=== PATIENT | male | born 1965 | race Caucasian/White ===

== ENCOUNTER → 2017-11-14 08:25 | Outpatient (CLI) | payer OTHER, SELFPAY ==
[2017-01-21 10:21] VITALS: BMI 35.7
[2017-11-14 09:48] LABS: AST(SGOT) 17 U/L (15-37); Alanine Aminotransfer ALT/SGPT 33 U/L (16-61); Albumin, Serum 3.5 g/dL (3.2-5.0); Alkaline Phosphatase 53 U/L (45-117); Bilirubin, Direct 0.08 mg/dL (0.00-0.30); Cholesterol 153 mg/dL (200); Globulin 3.9 g/dL (2.2-4.2); High Density Lipoprotein 45 mg/dL; Protein, Total 7.4 g/dL (6.4-8.2); Triglycerides 141 mg/dL; Very Low Density Lipoprotein 28 mg/dL (5-40)
== END ==
PROVIDERS: Family Provider Family Medicine; PCP Family Medicine; Visit Provider Internal Medicine Cardiovascular Disease
DX: I10 Essential (primary) hypertension (principal); Z79.899 Other long term (current) drug therapy
CPT/HCPCS: 36415; 80061; 80076

== ENCOUNTER → 2018-04-17 08:46 | Outpatient (CLI) | payer OTHER, SELFPAY ==
[2017-01-21 10:21] VITALS: BMI 35.7
[2018-04-17 09:41] LABS: AST(SGOT) 14 U/L (15-37); Alanine Aminotransfer ALT/SGPT 23 U/L (16-61); Albumin, Serum 3.4 g/dL (3.2-5.0); Alkaline Phosphatase 49 U/L (45-117); Cholesterol 162 mg/dL (200); High Density Lipoprotein 58 mg/dL; Protein, Total 7.4 g/dL (6.4-8.2); Triglycerides 82 mg/dL; Very Low Density Lipoprotein 16 mg/dL (5-40)
== END ==
PROVIDERS: Family Provider Family Medicine; PCP Family Medicine; Visit Provider Internal Medicine Cardiovascular Disease
DX: E78.00 Pure hypercholesterolemia, unspecified (principal); Z79.899 Other long term (current) drug therapy
CPT/HCPCS: 36415; 80061; 80076

== ENCOUNTER → 2019-03-22 | Outpatient (CLI) | payer OTHER, SELFPAY ==
[2017-01-21 10:21] VITALS: BMI 35.7
[2019-03-01 16:07] VITALS: BMI 34.8
[2019-03-22 10:22] LABS: AST(SGOT) 13 U/L (15-37); Alanine Aminotransfer ALT/SGPT 25 U/L (16-61); Albumin, Serum 3.5 g/dL (3.2-5.0); Alkaline Phosphatase 47 U/L (45-117); Bilirubin, Direct 0.14 mg/dL (0.00-0.30); Cholesterol 144 mg/dL (200); High Density Lipoprotein 58 mg/dL; Protein, Total 7.5 g/dL (6.4-8.2); Triglycerides 67 mg/dL; Very Low Density Lipoprotein 13 mg/dL (5-40)
== END | disposition home or self-care (01) ==
LOC: LAB 08:56
PROVIDERS: Family Provider Family Medicine; PCP Family Medicine; Referring Provider Internal Medicine Cardiovascular Disease; Visit Provider Internal Medicine Cardiovascular Disease
DX: E78.00 Pure hypercholesterolemia, unspecified (principal); I25.119 Atherosclerotic heart disease of native coronary artery with unspecified angina pectoris
CPT/HCPCS: 36415; 80061; 80076

== ENCOUNTER → 2019-10-11 13:52 | Outpatient (CLI) | payer OTHER, SELFPAY ==
[2017-01-21 10:21] VITALS: BMI 35.7
[2019-09-27 15:36] VITALS: BMI 34.8
[2019-10-11 13:58] LABS: Lyme Ab Screen Interpretation REF LAB
--- NOTE | 2019-10-11 14:20 | RAD_ITS ---
STUDY: X-RAY CHEST REASON FOR EXAM: Male, 54 years old. possible Virchow Node, cough TECHNIQUE: PA and lateral views of the chest. COMPARISON: Prior study of November 10, 2016 FINDINGS: The lungs are clear and expanded. There is no demonstrated pleural abnormality. There is borderline cardiomegaly. Normal mediastinum and gillian. Normal visualized pulmonary arteries. Normal visualized aortic arch and descending thoracic aorta. There are diffuse degenerative changes of the visualized thoracic spine. Normal visualized ribs, clavicles, and shoulders. There is no demonstrated abnormality of the visualized soft tissue structures of the upper abdomen. RAD/Chest PA and Lateral IMPRESSION: Borderline heart size. Endplate spondylosis of the thoracic spine. No acute cardiopulmonary disease process is seen. Electronically Signed: Gregg Posada MD at 22:15 EST , Service support ,
[2019-10-11 15:42] LABS: Absolute Lymphocyte Count 1.37 X10^3/uL (0.83-4.51); Absolute Neutrophil Count 3.7 X10^3/uL (2.0-7.7); Basophil# 0.03 X10^3/uL; Basophil% 0.5 % (0-1); Eosinophil# 0.18 X10^3/uL; Eosinophils% 3.1 % (0-5); Hematocrit 39.3 % (40-54); Hemoglobin 12.8 g/dL (13.0-16.5); Lymphocyte # 1.37 X10^3/ul (4.0); Mean Corp Hgb Conc 32.6 g/dL (32-36); Mean Corpuscular Hgb 29.4 pg (27.0-32.0); Mean Corpuscular Volume 90.3 fL (80-94); Mean Platelet Vol. 10.8 fl (6.2-12.0); Monocyte# 0.39 X10^3/uL; Monocyte% 6.8 % (0-10); NRBC Flagged by Analyzer 0 % (0-5); Neutrophil # 3.74 X10^3/uL (2.7-7.7); Neutrophil % 65.4 % (47-70); Platelet Count 221 K/mm3 (150-450); RBC Distribution Width CV 13.3 % (11.6-14.6); Red Blood Count 4.35 M/mm3 (4.6-6.2); White Blood Count 5.7 K/mm3 (4.4-11.0)
[2019-10-11 16:30] LABS: ALB/GLOB Ratio 0.9 RATIO (0.9-2.4); AST(SGOT) 17 U/L (15-37); Alanine Aminotransfer ALT/SGPT 36 U/L (16-61); Albumin, Serum 3.5 g/dL (3.2-5.0); Alkaline Phosphatase 47 U/L (45-117); Anion Gap 5 (5-15); BUN 23 mg/dL (7-18); BUN/Creat Ratio 22.8 RATIO (10-20); Bilirubin, Direct 0.15 mg/dL (0.00-0.30); CRP < 2.90 mg/L (0.0-3.0); Calcium,Total 8.5 mg/dL (8.5-10.1); Chloride 107 mmol/L (98-107); Cholesterol 195 mg/dL (200); Creatinine, Serum 1.01 mg/dL (0.70-1.30); EST Glomerular Filtration Rate 82 mL/min (>60); Est Glom Filt Rate - Afr Amer 99 mL/min (>60); Glucose 95 mg/dL (74-106); High Density Lipoprotein 63 mg/dL; Potassium 3.8 mmol/L (3.5-5.1); Protein, Total 7.5 g/dL (6.4-8.2); Sodium Level 139 mmol/L (136-145); Triglycerides 142 mg/dL; Very Low Density Lipoprotein 28 mg/dL (5-40)
[2019-10-13 23:22] LABS: Carbohydrate AG 19-9 1 U/mL (0-35); Lyme Scn Total Ab w/Rflx <0.91 ISR (0.00-0.90)
== END ==
PROVIDERS: Family Provider Family Medicine; PCP Family Medicine; Referring Provider Family Medicine; Visit Provider Family Medicine
DX: D48.7 Neoplasm of uncertain behavior of other specified sites (principal); R59.9 Enlarged lymph nodes, unspecified; R05 Cough; I25.119 Atherosclerotic heart disease of native coronary artery with unspecified angina pectoris; E78.00 Pure hypercholesterolemia, unspecified
CPT/HCPCS: 36415; 71046; 80053; 80061; 82248; 85025; 86140; 86301; 86618

== ENCOUNTER → 2019-10-19 13:20 | Outpatient (CLI) | payer OTHER, SELFPAY ==
[2017-01-21 10:21] VITALS: BMI 35.7
[2019-09-27 15:36] VITALS: BMI 34.8
--- NOTE | 2019-10-19 13:27 | US_ITS ---
STUDY: SOFT TISSUE NECK REASON FOR EXAM: Male, 54 years old. RIGHT SUBCLAVICULAR ADENOPATHY TECHNIQUE: Ultrasound evaluation of the soft tissues of the neck. COMPARISON: None. FINDINGS: There is a hypoechoic mass in the supraclavicular region near the midline, measures 2 x 1 x 1.7 cm, may represent a synovial mass originating from the sternoclavicular joint. Further evaluation by CT scan or MRI is recommended. US/Ext Non Vasc Limited/Soft Tiss IMPRESSION: There is a hypoechoic mass in the supraclavicular region near the midline, measures 2 x 1 x 1.7 cm, may represent a synovial mass originating from the sternoclavicular joint. Further evaluation by CT scan or MRI is recommended. Electronically Signed: Carlo Welch, at 8:08 EST Tel , Service support ,
--- NOTE | 2019-10-19 14:17 | ECHOCS_ITS ---
Reason For Study: CHEST PAIN Procedure This was a 2D Doppler, Color Flow transthoracic echocardiogram. The study was technically difficult. Contrast injection was performed. Exam performed in department. Left Ventricle Normal size and thickness. The estimated ejection fraction is 65 %. Normal diastology for age. No regional wall motion abnormalities noted. Right Ventricle Mildly dilated right ventricle. Normal systolic function. Atria Normal left atrium. Normal right atrium. Normal atrial septum. Mitral Valve The mitral valve is structurally normal. No prolapse or stenosis seen. Trivial eccentric mitral valve insufficiency. Tricuspid Valve Normal tricuspid valve. Trivial tricuspid valve insufficiency. Right ventricular systolic pressure estimated to be 24 mmHg. Aortic Valve Trisinus/trileaflet aortic valve. Mild diffuse aortic valve thickening. There is no aortic stenosis. Pulmonic Valve Normal pulmonic valve. Trivial pulmonic valve insufficiency. Great Vessels Normal aortic root. Normal arch. Normal inferior vena cava. Inferior vena cava collapse with sniff. Pericardium/Pleural No pericardial effusion. Medication 22 gauge I.V. with prn adaptor inserted into right arm. Diluted definity 3.0ml given slow IV push to enhance endocardial definition. MMode/2D Measurements & Calculations LVIDd: 5.4 cm IVSd: 0.96 cm Ao root diam: 4.5 cm LVIDs: 3.4 cm LVPWd: 1.0 cm RVDd: 4.8 cm FS: 37.0 % LAV(MOD-bp): 63.0 ml EDV(MOD-sp4): 164.0 ml EDV(MOD-sp2): 151.8 ml LAV(MOD-bp) Indexed: 28.2 ml/m2 ESV(MOD-sp4): 79.8 ml EF(MOD-sp2): 65.6 % LAV(MOD-sp2): 57.4 ml EF(MOD-sp4): 51.3 % LAV(MOD-sp4): 59.3 ml SV(MOD-sp4): 84.2 ml SV(MOD-sp2): 99.6 ml LA A4 area: 20.7 cm2 LA dimension(2D): 4.5 cm RA A4 area: 12.7 cm2 Time Measurements MV dec time: 0.21 sec Doppler Measurements & Calculations MV E max александр: 93.7 cm/sec Lat Peak E' Александр: 9.6 cm/sec Med Peak E' Александр: 6.4 cm/sec MV A max александр: 82.7 cm/sec E/E' lat: 9.8 E/E' med: 14.7 MV E/A: 1.1 Ao V2 max: 178.4 cm/sec LV V1 max: 118.6 cm/sec PA V2 max: 127.9 cm/sec Ao max P.7 mmHg LV V1 max P.6 mmHg TR max александр: 216.2 cm/sec TR max P.8 mmHg Interpretation Summary The estimated ejection fraction is 65 %. Normal diastology for age. Mildly dilated right ventricle. Trivial eccentric mitral valve insufficiency. Trivial tricuspid valve insufficiency. Right ventricular systolic pressure estimated to be 24 mmHg. Mild diffuse aortic valve thickening. There is no aortic stenosis. Compared to echo report dated 11/10/16, no appreciable changes noted. The study was technically difficult. Contrast injection was performed. Ordering Physician: Justo Duque Referring Physician: Herbert Christie Performed By: Aurea Rodriguez, RDCS, RVT
== END ==
PROVIDERS: Family Provider Family Medicine; PCP Family Medicine; Referring Provider Family Medicine; Visit Provider Family Medicine
DX: R07.9 Chest pain, unspecified (principal); I25.119 Atherosclerotic heart disease of native coronary artery with unspecified angina pectoris; I10 Essential (primary) hypertension; I25.2 Old myocardial infarction; Z95.5 Presence of coronary angioplasty implant and graft; R59.0 Localized enlarged lymph nodes
CPT/HCPCS: 76882; 93306; Q9957; A4216; C8929

== ENCOUNTER → 2019-10-26 09:25 | Outpatient (CLI) | payer OTHER, SELFPAY ==
[2017-01-21 10:21] VITALS: BMI 35.7
[2019-09-27 15:36] VITALS: BMI 34.8
--- NOTE | 2019-10-26 09:28 | STEWCON_ITS ---
Reason For Study: CAD, Chest Pain Stress Results Protocol: Quinton Protocol WITH DEFINITY Maximum Predicted HR: 166 bpm Target HR: 141 bpm % Maximum Predicted HR: 86 % DurationHeart Rate Stage (mm:ss) (bpm) BP Comment Baseline 47 138/86No Chest Pain; 3 ML Diluted Definity Given Quinton Protocol Stage I 3:00 77 140/80No Chest Pain Quinton Protocol Stage II 3:00 95 168/84No Chest Pain Quinton Protocol Stage III 3:00 122 174/80No Chest Pain; Mild Dyspnea Quinton Protocol Stage IV 0:45 142 / No Chest Pain; Mild Dyspnea; Daniel Leg Discomfort Recovery 60 130/80No Chest Pain; No Dyspnea Stress Duration: 9:45 mm:ss Maximum Stress HR: 142 bpm METS: 12 Baseline Echocardiogram Findings The estimated ejection fraction is 65 %. Stress Echo Wall motion Data Resting WM Intermediate WM Stress WM Resting Wall Motion Wall Motion Stress No regional wall motion No regional wall motion abnormalities noted. abnormalities noted. EKG Data The baseline ECG displays normal sinus rhythm. The patient exercised according to the regular Quinton protocol for a total duration of 9:45. The maximum heart rate attained was 142 beats per minute. This was 85% of maximum predicted heart rate. The patient exercised into stage 4 of the Quinton protocol. During stress, there were no ST or T wave changes noted to suggest ischemia. No clinical angina was noted. Interpretation Summary The estimated ejection fraction is 65 %. Normal, adequate, treadmill echocardiogram. Negative for ischemia by EKG and echocardiographic criteria. No anginal symptoms noted. Rare PVC noted. Appropriate blood pressure response to exercise. Average exercise capacity for age. Test terminated due to leg discomfort. Final LVEF is 75%. Patient tolerated procedure well. No complications. Decrease sensitivity due to poor echo windows requiring Definity agent. The study was technically difficult. Contrast injection was performed. Ordering Physician: Justo Duque Referring Physician: Herbert Christie Performed By: Teofilo Saunders RCS
== END ==
PROVIDERS: Family Provider Family Medicine; PCP Family Medicine; Referring Provider Internal Medicine Cardiovascular Disease; Visit Provider Internal Medicine Cardiovascular Disease
DX: R07.9 Chest pain, unspecified (principal); I25.119 Atherosclerotic heart disease of native coronary artery with unspecified angina pectoris; I25.2 Old myocardial infarction; I10 Essential (primary) hypertension
CPT/HCPCS: 93017; 93350; Q9957; A4216; C8928

== ENCOUNTER → 2020-11-28 10:41 | Outpatient (CLI) | payer OTHER, SELFPAY ==
[2017-01-21 10:21] VITALS: BMI 35.7
[2020-11-28 10:02] VITALS: BMI 36.7
[2020-11-28 11:31] LABS: Absolute Lymphocyte Count 1.44 X10^3/uL (0.83-4.51); Absolute Neutrophil Count 2.7 X10^3/uL (2.0-7.7); Basophil# 0.04 X10^3/uL; Basophil% 0.8 % (0-1); Eosinophil# 0.13 X10^3/uL; Eosinophils% 2.7 % (0-5); Hematocrit 43.1 % (40-54); Hemoglobin 14.1 g/dL (13.0-16.5); Lymphocyte # 1.44 X10^3/ul (4.0); Lymphocyte % 30.3 % (19-41); Mean Corp Hgb Conc 32.7 g/dL (32-36); Mean Corpuscular Volume 91.7 fL (80-94); Mean Platelet Vol. 10.4 fl (6.2-12.0); Monocyte# 0.46 X10^3/uL; Monocyte% 9.7 % (0-10); NRBC Flagged by Analyzer 0 % (0-5); Neutrophil # 2.67 X10^3/uL (2.7-7.7); Neutrophil % 56.3 % (47-70); Platelet Count 263 K/mm3 (150-450); RBC Distribution Width CV 12.7 % (11.6-14.6); RBC Distribution Width SD 41.6 fl (35.1-43.9); White Blood Count 4.8 K/mm3 (4.4-11.0)
[2020-11-28 12:07] LABS: ALB/GLOB Ratio 0.9 RATIO (0.9-2.4); AST(SGOT) 16 U/L (15-37); Alanine Aminotransfer ALT/SGPT 31 U/L (16-61); Albumin, Serum 3.7 g/dL (3.2-5.0); Alkaline Phosphatase 53 U/L (45-117); Anion Gap 4 (5-15); BUN 17 mg/dL (7-18); BUN/Creat Ratio 18.7 RATIO (10-20); Chloride 106 mmol/L (98-107); Cholesterol 212 mg/dL (200); Creatinine, Serum 0.91 mg/dL (0.70-1.30); EST Glomerular Filtration Rate 92 mL/min (>60); Est Glom Filt Rate - Afr Amer 111 mL/min (>60); Globulin 4.1 g/dL (2.2-4.2); Glucose 92 mg/dL (74-106); High Density Lipoprotein 68 mg/dL; Protein, Total 7.8 g/dL (6.4-8.2); Sodium Level 138 mmol/L (136-145); Triglycerides 76 mg/dL; Very Low Density Lipoprotein 15 mg/dL (5-40)
== END ==
PROVIDERS: PCP Family Medicine; Referring Provider Physician Assistant Medical; Visit Provider Physician Assistant Medical
DX: E78.00 Pure hypercholesterolemia, unspecified (principal); I10 Essential (primary) hypertension; I25.119 Atherosclerotic heart disease of native coronary artery with unspecified angina pectoris
CPT/HCPCS: 36415; 80053; 80061; 84443; 85025

== ENCOUNTER → 2020-12-10 06:27 | Outpatient (CLI) | payer OTHER, SELFPAY ==
[2017-01-21 10:21] VITALS: BMI 35.7
[2020-11-28 10:02] VITALS: BMI 36.7
--- NOTE | 2020-12-10 08:54 | STRESSREP ---
Stress Test Report Date: 12-10-2020 Procedure: Exercise tolerance test/imaging study Indications: Chest pain; CAD; PCI Consent: Per the patient Procedure: The patient exercised on a Quinton protocol for 8 minutes and 15 seconds completing Stage II and 2 minutes and 15 seconds of Stage III achieving a peak heart rate of 146 bpm (88% predicted maximal heart rate) with a peak blood pressure 230/84 mmHg and a peak MET capacity of 9 METs. The baseline ECG demonstrated sinus bradycardia. The peak exercise ECG demonstrated no obvious ECG changes. There were no cardiac dysrhythmias pretest, during exercise, or recovery. The blood pressure was noted to be resting hypertension with an exaggerated blood pressure response. The functional capacity was considered good. There was chest discomfort pretest, during exercise, and recovery without significant change. The examination was discontinued secondary to dyspnea. Impression: 1. Technically adequate (percent predicted maximal heart rate greater than 85%) exercise tolerance test 2. Peak exercise ECG with no obvious ECG changes 3. There were no cardiac dysrhythmias pretest, during exercise, or recovery 4. Nuclear images pending Myocardial perfusion imaging study: Technique: The patient was injected with 14.6 mCi of technetium 99m Cardiolite and subsequently rest SPECT Cardiolite nuclear imaging was obtained in the horizontal long, vertical long, and short axis views. The patient exercised on a Quinton protocol for 8 minutes and 15 seconds completing Stage II and 2 minutes and 15 seconds of Stage III achieving a peak heart rate of 146 bpm (88% predicted maximal heart rate) with a peak blood pressure 230/84 mmHg and a peak MET capacity of 9 METs. The patient was injected with 43.8 mCi of technetium 99m Cardiolite and subsequently stress SPECT Cardiolite nuclear imaging was obtained in the horizontal long, vertical long, and short axis views. A gated Cardiolite study at peak stress was obtained. Interpretation: Rest and stress SPECT Cardiolite nuclear imaging status post realignment, normalization, and attenuation correction, demonstrates of a small area of subtle diminished tracer uptake near the basal lateral segments which is present at rest and stress, however, status post stress appears to be somewhat more prominent and extending toward the mid lateral segment. There is end systolic thickening and brightening. The gated Cardiolite study demonstrates myocardial thickening and inward wall motion. The reported LVEF is 61%. Impression: 1. Rest and stress SPECT Cardiolite nuclear imaging demonstrate myocardial perfusion changes concerning for an area of stress-induced myocardial ischemia in portions of the basal to mid lateral segments. 2. The gated Cardiolite study reports an LVEF of 61%. This note was generated with [employer] software. It may contain incorrect words, spelling, and punctuation that were not noted in checking the note before signing.
== END ==
PROVIDERS: PCP Family Medicine; Referring Provider Physician Assistant Medical; Visit Provider Physician Assistant Medical
DX: I10 Essential (primary) hypertension (principal); E78.00 Pure hypercholesterolemia, unspecified; I25.119 Atherosclerotic heart disease of native coronary artery with unspecified angina pectoris
CPT/HCPCS: 78452; 93017; A9500; A4216

== ENCOUNTER 2020-12-12 07:00 | Day surgery (SDC) | payer OTHER, SELFPAY ==
[2017-01-21 10:21] VITALS: BMI 35.7
[2020-11-28 10:02] VITALS: BMI 36.7
[2020-12-11 09:58] VITALS: BMI 36.7
--- NOTE | 2020-12-11 11:05 | RAD_ITS ---
STUDY: X-RAY CHEST REASON FOR EXAM: Male, 55 years old. Chest pain TECHNIQUE: PA and lateral views of the chest. COMPARISON: Comparison is made with prior study dated 10/11/2019. FINDINGS: Scattered calcified granulomas. No focal abnormalities. There is no demonstrated pleural abnormality. Normal size heart. Normal mediastinum and gillian. Normal visualized pulmonary arteries. Normal visualized aortic arch and descending thoracic aorta. There are diffuse degenerative changes of the visualized thoracic spine. Normal visualized ribs, clavicles, and shoulders. There is no demonstrated abnormality of the visualized soft tissue structures of the upper abdomen. RAD/Chest PA and Lateral IMPRESSION: No acute abnormality is seen. Electronically Signed: Yahir Benitez MD at 11:20 EST , Service support ,
[2020-12-11 11:55] LABS: Partial Thromboplast Time 26.1 Seconds (24.1-36.2); Prothrombin Time (Protime)PT. 13.1 SECONDS (11.7-14.9)
--- NOTE | 2020-12-11 19:19 | HP.PCM_ITS ---
Problem List (1) Abnormal stress test Status: Acute (2) Atherosclerotic heart disease [place] coronary artery w/angina pectoris Status: Chronic Qualifiers: Comment: 100% occluded pre-existing stent in the proximal to mid first obtuse marginal artery. 0% in-stent restenosis in the proximal to mid right coronary artery. 50 to 60% stenosis in the proximal posterior descending artery. (3) S/P coronary artery stent placement Status: Chronic Comment: PCI-MANUEL-RCA w/ Synergy 3.0 x 32 mm MANUEL, OM1 w/ 100% ISR 01/21/17 PCI-MANUEL-OM1 11/11/2016 (4) Hypercholesterolemia Status: Chronic (5) Hypertension Status: Chronic Qualifiers: History and Physical Date of Admission: 12/12/[address] [place] [address] OFFICE VISIT Date of Service: 11/28/20 MR#: [id number] Acct: [id number] Name: KYM EVANS Rep #: [id number] : 1965 Provider: MILTON Fraga Age/Sex: 55/M Location: [facility] Status: Signed HPI HPI History of Present Illness Details: This is a 55-year-old gentleman that presents here today for a cardiovascular follow-up. He is overdue for a follow-up he was last seen in 2019. He does have a history of coronary artery disease with non-STEMI in 2018 where he underwent stenting to his obtuse marginal. He does have a history of hypertension and hyperlipidemia. From a cardiac standpoint, patient is doing well. He does occasionally have chest pain. It occurs t/o the day, it is not brought on by anything in particular. This is not new. He has used his NTG a few times, it has not made a different. His exercise tolerance is stable for his age. He does not have any worsening symptoms of shortness of breath. He denies any PND. He does not have any orthopnea. He does not have any symptoms of congestive heart failure. He does not have any palpitations that he is aware of. He does not have any lightheadedness or dizziness. He does not have any near-syncope or syncope. He does not have any lower extremity edema. He does not have any symptoms of claudication. Intake Vital Signs 11/28/20 BP 138/80 H 11/28/20 Height 5 ft 10 in 11/28/20 Weight: 256 lb 11/28/20 BMI 36.7 11/28/20 BP 153/87 H 11/28/20 Blood Pressure Location Lt brachial 11/28/20 Position Sitting 11/28/20 Respiration 18 11/28/20 Pulse 47 L 11/28/20 Pulse Source Monitor 11/28/20 Pulse Oximetry (%) 95 Intake Visit Reasons: F/U, MISSED LAST DJN APPT Law Office Receptionist Required: No Accompanied by: None Is patient in pain?: No Allergies atorvastatin Adverse Reaction (Verified 11/28/20 09:57) Pt can't recall Medications Vitamin E 400 units PO DAILY 11/10/16 [History Confirmed 11/28/20] Aspirin E.C. [Ecotrin] 81 mg PO DAILY@0800 #30 tab 11/12/16 [Rx Confirmed 11/28/20] nitroglycerin 0.4 mg sublingual tablet 0.4 mg SUBLINGUAL Q5M PRN #25 tab MDD 3 tabs 09/27/19 [Rx Confirmed 11/28/20] losartan 25 mg tablet 12.5 mg PO BID #90 tab 07/11/20 [Rx Confirmed 11/28/20] simvastatin 20 mg tablet 20 mg PO QHS #90 tab 09/23/20 [Rx Confirmed 11/28/20] PFSH Medical History Chest pain (Acute) Atherosclerotic heart disease [place] coronary artery w/angina pectoris (Chronic) Obesity (Chronic) Non-STEMI (non-ST elevated myocardial infarction) (Chronic) Hypertension (Chronic) Hypercholesterolemia (Chronic) Surgical History History of left heart catheterization (Chronic ~02/23/17) S/P coronary artery stent placement (Chronic ~01/21/17) History of right knee surgery (Chronic) Family History Mother CVA (cerebral vascular accident) Father CAD (coronary artery disease) Social History (Updated 11/28/20 @ 10:46 by Deborah ROSE, PA) alcohol intake: current Alcohol type: beer, hard liquor substance use type: does not use what type of physical activity do you participate in: walking frequency: 1-2 times per week ROS Const Const: Negative for fatigue, weakness, fever(s) or headache(s) Eyes Eyes: Negative for blind spots, loss of peripheral vision or transient loss of vision ENT ENT: Negative for headache(s), dizziness, tinnitus or Nosebleed/epistaxis Cardio Chest Pain: Yes Palpitations: No Edema: None Muscle aches with walking: None Resp Respiratory: Negative for SOB with activity, SOB at rest, SOB orthopnea\SOB lying down or Cough GI GI: Negative nausea, vomiting, heartburn or vomiting blood/hematemesis : Negative for hematuria Musc Musc: Negative for muscle aches/ myalgia Neuro Neuro: Negative for dizziness, lightheadedness, near syncope, syncope, orthostatic symptoms, headache(s) or weakness [place] Hematologic/Lymphatic: Negative for easy bleeding Endo Endo: Negative for fatigue Cardiology Exam Const Appearance: cooperative, no acute distress and well developed Orientation: alert, awake and oriented x3 Head Head: normocephalic and atraumatic Mouth: moist mucous membranes Eyes General: appearance normal, both eyes and all related structures Conjunctivae: conjunctivae normal Pupils: PERRL EOM: EOM intact bilaterally Neck Neck: normal visual inspection, no lymphadenopathy and no JVD Carotids: Negative bruit Neck Mass: Negative Neck mass Chest Chest inspection: normal inspection of the chest and symmetric chest movement Auscultation: Bilateral: Clear to Auscultation Cardio Palpation: normal PMI Rate: regular rate Rhythm: regular rhythm Heart sounds: S1 normal and S2 normal; negative rub, gallop or murmur GI GI: normal to inspection, soft, no hepatosplenomegaly and bowel sounds present; negative tender Neuro General: alert, awake, oriented x3, CN's II-XI intact bilaterally and moves all extremities Extremities Pulses: Normal: Right Posterior Tibial Pulse, Left Posterior Tibial Pulse, Right Radial Pulse, Left Radial Pulse Lower Extremity Edema: None: Bilateral Psych Psychological: normal affect Assessment & Plan 1. Atherosclerosis of [place] coronary artery of [place] heart with angina pectoris I25.119 100% occluded pre-existing stent in the proximal to mid first obtuse marginal artery. 0% in-stent restenosis in the proximal to mid right coronary artery. 50 to 60% stenosis in the proximal posterior descending artery. Plan Patient does have some vague chest discomfort. He did not have any symptoms prior to his myocardial infarction. With his history of coronary artery disease would like to obtain a stress test to evaluate for underlying ischemia. He was not tolerant to his beta-cathy in the past. He will continue with his low- dose losartan, aspirin and simvastatin. Orders Orders: Comprehensive Metabolic Profil Today Lipid Profile Today Thyroid Stim Hormone (TSH) Today CBC W/Diff, Automated Today Nuclear Stress Test - Treadmil Today 2. Essential hypertension I10 Plan Blood pressure initially elevated upon recheck better. Patient does admit to not being compliant with his medications. Orders Orders: Comprehensive Metabolic Profil Today Lipid Profile Today Thyroid Stim Hormone (TSH) Today CBC W/Diff, Automated Today Nuclear Stress Test - Treadmil Today 3. Hypercholesterolemia E78.00 Plan Would like to recheck his lipids. Now he will continue with his low-dose simv astatin. Of note if they are elevated suspect it may be due to noncompliance would then not make any changes and reevaluate in the future. Orders Orders: Comprehensive Metabolic Profil Today Lipid Profile Today Thyroid Stim Hormone (TSH) Today CBC W/Diff, Automated Today Nuclear Stress Test - Treadmil Today 4. Fatigue R53.83 Plan With patient's fatigue would like to obtain a stress test and labs. Plan Detail Follow Up 6 Months (MMM) 1 Year (establish with PFM- previous DJN) Coding Level of Care Code Off vis,est,level 4 Diagnoses Atherosclerosis of [place] coronary artery of [place] heart with angina pectoris I25.119 ??[place] vs. transplanted heart: [place] heart Essential hypertension I10 ??Hypertension type: essential hypertension Hypercholesterolemia E78.00 Fatigue R53.83 Coding Level of Care Code Off vis,est,level 4 Diagnoses Atherosclerosis of [place] coronary artery of [place] heart with angina pectoris I25.119 ??[place] vs. transplanted heart: [place] heart Essential hypertension I10 ??Hypertension type: essential hypertension Hypercholesterolemia E78.00 Fatigue R53.83 Supplemental Info Supplemental Information Stress test 10/2019: The estimated ejection fraction is 65 %. Normal diastology for age. Mildly dilated right ventricle. Trivial eccentric mitral valve insufficiency. Trivial tricuspid valve insufficiency. Right ventricular systolic pressure estimated to be 24 mmHg. Mild diffuse aortic valve thickening. There is no aortic stenosis. Compared to echo report dated 11/10/16, no appreciable changes noted. The study was technically difficult. Contrast injection was performed. Stress echocardiogram 2020: The estimated ejection fraction is 65 %. Normal, adequate, treadmill echocardiogram. Negative for ischemia by EKG and echocardiographic criteria. No anginal symptoms noted. Rare PVC noted. Appropriate blood pressure response to exercise. Average exercise capacity for age. Test terminated due to leg discomfort. Final LVEF is 75%. Patient tolerated procedure well. No complications. Decrease sensitivity due to poor echo windows requiring Definity agent. The study was technically difficult. Contrast injection was performed. Labs LDL Cholesterol 104 mg/dL (0-130) 10/11/19 HDL Cholesterol 63 mg/dL (40-) 10/11/19 Triglycerides 142 mg/dL (-199) 10/11/19 VLDL Cholesterol 28 mg/dL (5-40) 10/11/19 Diagnostics Electrocardiogram 09/27/19 Echocardiogram 10/19/19 Stress Echocardiogram 10/26/19 Chest X-Ray 10/11/19 11/28/20 1046 <Electronically signed by Deborah Benitez> Date _ Deborah ROSE The patient underwent further evaluation with an exercise tolerance test/imaging study. The results are as noted below. Stress Test Report Date: 12-10-2020 Procedure: Exercise tolerance test/imaging study Indications: Chest pain; CAD; PCI Consent: Per the patient Procedure: The patient exercised on a Quinton protocol for 8 minutes and 15 seconds completing Stage II and 2 minutes and 15 seconds of Stage III achieving a peak heart rate of 146 bpm (88% predicted maximal heart rate) with a peak blood pressure 230/84 mmHg and a peak MET capacity of 9 METs. The baseline ECG demonstrated sinus bradycardia. The peak exercise ECG demonstrated no obvious ECG changes. There were no cardiac dysrhythmias pretest, during exercise, or recovery. The blood pressure was noted to be resting hypertension with an exaggerated blood pressure response. The functional capacity was considered good. There was chest discomfort pretest, during exercise, and recovery without significant change. The examination was discontinued secondary to dyspnea. Impression: 1. Technically adequate (percent predicted maximal heart rate greater than 85%) exercise tolerance test 2. Peak exercise ECG with no obvious ECG changes 3. There were no cardiac dysrhythmias pretest, during exercise, or recovery 4. Nuclear images pending Myocardial perfusion imaging study: Technique: The patient was injected with 14.6 mCi of technetium 99m Cardiolite and subsequently rest SPECT Cardiolite nuclear imaging was obtained in the horizontal long, vertical long, and short axis views. The patient exercised on a Quinton protocol for 8 minutes and 15 seconds completing Stage II and 2 minutes and 15 seconds of Stage III achieving a peak heart rate of 146 bpm (88% predicted maximal heart rate) with a peak blood pressure 230/84 mmHg and a peak MET capacity of 9 METs. The patient was injected with 43.8 mCi of technetium 99m Cardiolite and subsequently stress SPECT Cardiolite nuclear imaging was obtained in the horizontal long, vertical long, and short axis views. A gated Cardiolite study at peak stress was obtained. Interpretation: Rest and stress SPECT Cardiolite nuclear imaging status post realignment, normalization, and attenuation correction, demonstrates of a small area of subtle diminished tracer uptake near the basal lateral segments which is present at rest and stress, however, status post stress appears to be somewhat more prominent and extending toward the mid lateral segment. There is end systolic thickening and brightening. The gated Cardiolite study demonstrates myocardial thickening and inward wall motion. The reported LVEF is 61%. Impression: 1. Rest and stress SPECT Cardiolite nuclear imaging demonstrate myocardial perfusion changes concerning for an area of stress-induced myocardial ischemia in portions of the basal to mid lateral segments. 2. The gated Cardiolite study reports an LVEF of 61%. The above was discussed and reviewed with the patient. The recommendation was made for further evaluation with diagnostic cardiac catheterization. The procedure and risk were discussed with the patient. He was in agreement. I have re-examined the patient. There are no clinical changes since date of exam. Procedure Criteria Procedure Type: Elective COVID Risk Discussion: The surgeon/proceduralist and patient have discussed in detail the risk of exposure to and/or potential harm posed by the COVID-19 virus with having a surgery/procedure at this time versus the risk of delaying the surgery/procedure. It is not possible to know either the risk of delaying the surgery or procedure or chance of getting an infection with perfect accuracy, but a joint decision was made between the patient and the surgeon/proceduralist to proceed at this time with the scheduled surgery/procedure as indicated on the consent form.
[2020-12-12] VITALS (14 sets, daily range): BP systolic 115–150; BP diastolic 69–88; PULSE 43–55; RESP 18; TEMP 36.6–37.2; O2SAT 95–98
--- NOTE | 2020-12-12 09:27 | CL.D_ITS ---
Patient Name: KYM EVANS Study Date: 12/12/2020 Performing: Philippe Jean MD Ht: 70.07 inches 178 cm : 1965 Wt: 255.74 lbs 116 kg Age: 55 Gender: male BSA: 2.32 PROCEDURE(S) PERFORMED [id number]/COR/LV CLINICAL PROFILE AND INDICATIONS Indications: Worsening Angina, Suspected CAD Heart Failure: None Stress/Imaging Date: 12/10/2020tress Test with SPECT MPI: Positive Intermediate Risk Angina Classification Anginal Classification w/in 2 Weeks: CCS III CAD Presentations: Stable angina. CONCLUSIONS Elevated Left Ventricular End Diastolic Pressure Normal LV size, wall motion,and systolic function LVEF: by LV gram 60 % [place] Multivessel CAD Left to Left collateral flow RECOMMENDATIONS Risk factor modification Medical therapy Referred for immediate PCI Case discussed / reviewed with Dr. Zev Nick of Interventional Cardiology DESCRIPTION OF PROCEDURE The patient arrived to the procedure lab. The risks and benefits of the procedure as well as a full d escription of our services here and current unavailability of surgical backup were fully explained to the patient and/or their significant other prior to the catheterization. The Timeout was completed, verifying the correct patient and procedure. The patient's procedural site was prepped and draped in the usual fashion. Local anesthetic was given subcutaneously to right radial region with Lidocaine 2% . Using a modified Seldinger technique, arterial access was obtained via the right radial artery, a 6 Fr sheath was inserted. Right Coronary Artery selective angiography was then performed in multiple v iews using a 5 Fr. 4.0 [place] catheter. Left Coronary Artery selective angiography was performed in mu ltiple views using a 5 Fr. 4.0 [place] catheter. Left Ventriculography was performed in GRAVES projection using a 5 Fr. Pigtail catheter. LV to AO pullback pressures were then recorded. CORONARY ANGIOGRAPHY DOMINANCE: Right Dominant LEFT HEART ASSESSMENT Left Ventricular Ejection Fraction: by LV Gram 60 % Normal LV wall motion Elevated Left Ventricular End Diastolic Pressure LVEDP: 16 mmHg LEFT MAIN: Mild calcification, Mild luminal irregularities LEFT ANTERIOR DESCENDING ARTERY: Mild luminal irregularities PROX LAD: Mild calcification DISTAL LAD: / apical: 75 % Stenosis CIRCUMFLEX ARTERY: Mild luminal irregularities OSTIAL CIRC: 25 % Stenosis OM 2: Proximal - Previously placed stent is occluded RIGHT CORONARY ARTERY: Mild luminal irregularities MID RCA: Previously placed stent is patent DISTAL RCA: s/p stent: eccentric: 50 - 75 % Stenosis, hazy: 85 % Stenosis RT PDA: Proximal - long: smooth: 75 % Stenosis COLLATERAL FLOW: Collateral flow from Left to Left (LAD to OM2) AORTIC ROOT: Angiographically normal COMPLICATIONS No Complications PROCEDURE MEDICATIONS Versed 1 mg IV Fentanyl 50 mcg IV Versed 1 mg IV Fentanyl 50 mcg IV Oxygen: 20 L/min via nasal cannula Heparin given IA 12/12/2020 08:40:24 Plavix 300 mg PO 12/12/2020 09:11:37 SUMMARY OF HEMODYNAMIC DATA Time AIR REST ECG 07:20:31 AO 143/94 (114) SA 08:24:12 LV 167/13, 22 08:49:02 LV 160/9, 16 08:49:09 LV 173/4, 30 08:50:07 LV 177/5, 28 08:50:14 LVp 182/2, 28 08:50:26 AOp 174/91 (121) 08:50:31 Signed By Philippe Jean MD On 12/12/2020 09:27:01 Philippe eJan MD
--- NOTE | 2020-12-12 10:35 | CL.PCI_ITS ---
PCI Cardiac Cath Report PCI Report: Procedure performed 1. Successful PCI of the distal RCA with placement of 3 x 38 mm drug-eluting stent/synergy Postdilated with 3 x 20 mm NC balloon and achievement of excellent result. The distal RCA is stenosis is around 70% diffuse post PCI reduced to 0% ANGIE #3 flow pre and post PCI. 2. Successful PTCA of ostial/proximal RPDA using 2 x 18 on reduction of stenosis from 90% diffuse disease to 30% ANGIE #3 flow pre and post PTCA Consent; Risk and benefit of the procedure explained in detail to the patient informed consent obtained and placed in the chart. Preprocedure diagnosis in detail; This is a 55-year-old patient who presented for follow-up had a history of CAD in 2018 for non-ST elevation myocardial infarction and underwent stenting to obtuse marginal branch known to have history of hypertension hyperlipidemia also had a history of PCI and stent of the mid RCA. He had catheterization today by his primary hypoid gear tester Dr. Jean I reviewed the angiographic from the LV function preserved, he had occluded OM stent which is a small vessel with left to left collateral The RCA is a large patency of the mid RCA stent is noted with diffuse atherosclerosis in the distal RCA prior to the bifurcation Of at least 70%, also noted high-grade 90% stenosis of diffuse ostial and proximal RPDA. Based on his clinical presentation and having symptoms of chest pain with clear evidence of diffuse atherosclerosis of the RCA which is a large vessel we discussed the case with the plan of treating the OM branch which is a small vessel with medical therapy it had collaterals from the left side of the LAD to the OM branch And we decided to proceed with a PCI of the RCA and PTCA of the sidebranch which is ostial and proximal RPDA. Interventional equipment and plan; 1. 6 [place] JR4 catheter 2. 0.014 extra floppy run-through wire 180 cm 3. 2 x 15 mm balloon 4. 3 x 38 mm drug-eluting stent Synergy 5. 3 x 20 mm NC balloon. Procedure in detail; Patient already had access from the right radial artery, will proceed with the guide catheter 6 [place] JR4 guide, engaged the right coronary ostium Patient was given heparin total of 6000 international unit ACT level was 2.2 additional 3000 units was given Patient already was on Plavix and he was given further 300 mg of Plavix and aspirin Angiographic films are obtained in ITALIAN and AP cranial And then will proceed with a run-through wire across the lesion in the ostium RPDA and then predilated the lesion with a 2 x 50 mm balloon no evidence of dissection was given nitroglycerin we reduce the stenosis from 90% to 30% with a ANGIE-3 flow pre and post procedure. We used the same balloon to predilate the distal RCA This is followed by placement of a drug-eluting stent 3 x 38 mm overlap with the prior mid RCA stent And this has been postdilated using 3 x 20 mm NC balloon and achievement of excellent result with no evidence of dissection and reduction is stenosis in the diffuse RCA from 70% to 0% and a ANGIE III flow pre and post procedure Conclusion and recommendation; Successful PTCA of ostial and proximal RPDA and successful PCI of the distal RCA with placement of a drug-eluting stent as described Following this all catheters removed. TR band applied to right radial artery area with no complication in the [place] Literature Professor. Patient will follow up with his primary hypoid gear tester Dr. Jean with medical therapy dual antiplatelet therapy with Plavix and aspirin for 1 year and aspirin indefinitely if no complication Paula Nick MD,FACC,[facility] xray tech
--- NOTE | 2020-12-12 10:45 | EKG12_ITS ---
Test Reason : AM EKG Blood Pressure : / mmHG Vent. Rate : 057 BPM Atrial Rate : 057 BPM P-R Int : 206 ms QRS Dur : 104 ms QT Int : 410 ms P-R-T Axes : 038 -07 041 degrees QTc Int : 399 ms Sinus bradycardia Otherwise normal ECG When compared with ECG of 12-DEC-2020 11:00, MANUAL COMPARISON REQUIRED, DATA IS UNCONFIRMED Confirmed by LUCILLE BERMUDEZ, AJITH ([id number]), social media editor ORA SANTILLAN ([id number]) on 12/16/2020 12:51:23 PM Referred By: Philippe Jean Confirmed By:AJITH ADKINS MD
[2020-12-12] MEDS: 0.9% Normal Saline 1,000 ML 75 ML IV (11:00)
--- NOTE | 2020-12-12 11:42 | CRPHASE1_ITS ---
Patient Communication PHII Cardiac Rehab Discussed with Patient:: Yes Guide to Cardiac Rehab Given to Patient:: Yes Cardiac Rehab Facility Choice List Given to Patient:: Yes Choice Program [facility] PHII:: Communication Given to CR, Refer to [facility] Residential Real Estate Appraiser:: Paula Nick - Intervention doctor Refer Phase II Cardiac Rehab:: Yes - To occur after discharge Sessions:: 36 sessions - 3 days/wk, 12 weeks Cardiac Rehabilitation Info Cardiac Rehabilitation Program Information: Cardiac Rehabilitation is important for patients like you who are recovering fr om a heart problem. Cardiac rehabilitation programs are recognized as integral to the continued care of the patient with coronary heart disease. The cardiac rehabilitation program is designed to optimize a patient's physical, psychological, and social functioning. Health health care social worker work in cardiac rehabilitation programs and assist you with getting the treatments you need to get stronger and healthier - like exercise, healthy eating habits, and medications. Cardiac rehabilitation has been show to help people with heart problems live longer and have better life enjoyment than people who do not go to cardiac rehabilitation. Please contact the Cardiac Rehabilitation Program at [facility] at in two weeks if you have not heard from them.
--- NOTE | 2020-12-12 11:45 | CRPH1.INSTRU ---
General Education CAD and cardiac anatomy and function:: Patient communicates acknowledgment Explanation of diagnoses and procedures:: Patient communicates acknowledgment Sign/Symptoms of [place]:: Patient communicates acknowledgment Antiplatelet therapy: Patient communicates acknowledgment Proper use of NTG-SL: Patient communicates acknowledgment Emergency procedures and activation of EMS: Patient communicates acknowledgment Compliance of all prescribed medications: Patient communicates acknowledgment Dyslipidemia Patient Dyslipidemia Risk Factors Are:: Total Cholesterol - 104, Triglycerides - 142, HDL - 63 Recommendations Include:: Lipid profile provided, Therapeutic Lifestyle Change dietary guidelines Dyslipidemia Response Code:: Patient communicates acknowledgment Overweight/Obesity Patient Overweight/Obesity Risk Factors Are:: Obesity - > or = 30 Recommendations Include:: Weight loss of 5-10%, Reduced calorie diet, Exercise 5-7 times/week Overweight/Obesity:: Patient communicates acknowledgment Hypertension Recommendations Include:: Maintain BP <130/85, BP <130/80 if diabetic, DASH dietary guidelines, Decrease/maintain normal body weight, Moderation of ETOH Hypertension:: Patient communicates acknowledgment Heart Disease Patient Heart Disease Risk Factors Are:: Family history of heart disease < 65 years old, Previous cardiac event Recommendations Include:: Educated family members of their risk, Educated family members of importance of prevention of heart disease Heart Disease Response Code:: Patient communicates acknowledgment
--- NOTE | 2020-12-12 15:49 | PN.CARD_ITS ---
Subjectve: Patient is status post diagnostic cardiac catheterization. He appears to be resting comfortably at the moment. Objective: Vital Signs Temp Pulse Resp BP Pulse Ox 98.3 F 49 L 18 150/88 H 98 12/12/20 13:00 12/12/20 15:00 12/12/20 13:00 12/12/20 13:00 12/12/20 13:00 Oxygen Delivery Method Room Air Weight: 256 lb Body Mass Index (BMI) 36.7 Intake and Output for Last 24 Hours 12/10/20 12/11/20 12/12/20 23:59 23:59 23:59 Intake Total 240 / 240 Balance 240 / 240 General: Awake, Alert, Oriented x 3, Cooperative, No Acute Distress HEENT: Atraumatic, Normocephalic, PERRL, EOMI, Sclera Non Icteric Neck: No JVD Lungs: Clear to auscultation Cardiovascular: Regular Rhythm, Normal S1, Normal S2 Vascular: Normal Radial Pulses Abdomen: Bowel Sounds Present, Soft Extremities: No edema Neurological: No Focal Motor or Sensory Deficit Psych/Mental Status: Appropriate Rhythm: Sinus rhythm Cardiac Cath: CONCLUSIONS Elevated Left Ventricular End Diastolic Pressure Normal LV size, wall motion,and systolic function LVEF: by LV gram 60 % [place] Multivessel CAD Left to Left collateral flow RECOMMENDATIONS Risk factor modification Medical therapy Referred for immediate PCI Case discussed / reviewed with Dr. Zev Nick of Interventional Cardiology DESCRIPTION OF PROCEDURE The patient arrived to the procedure lab. The risks and benefits of the procedure as well as a full description of our services here and current unavailability of surgical backup were fully explained to the patient and/or their significant other prior to the catheterization. The Timeout was completed, verifying the correct patient and procedure. The patient's procedural site was prepped and draped in the usual fashion. Local anesthetic was given subcutaneously to right radial region with Lidocaine 2%. Using a modified Seldinger technique, arterial access was obtained via the right radial artery, a 6Fr sheath was inserted. Right Coronary Artery selective angiography was then performed in multiple views using a 5 Fr. 4.0 [place] catheter. Left Coronary Artery selective angiography was performed in multiple views using a 5 Fr. 4.0 [place] catheter. Left Ventriculography was performed in GRAVES projection using a 5 Fr. Pigtail catheter. LV to AO pullback pressures were then recorded. CORONARY ANGIOGRAPHY DOMINANCE: Right Dominant LEFT HEART ASSESSMENT Left Ventricular Ejection Fraction: by LV Gram 60 % Normal LV wall motion Elevated Left Ventricular End Diastolic Pressure LVEDP: 16 mmHg LEFT MAIN: Mild calcification, Mild luminal irregularities LEFT ANTERIOR DESCENDING ARTERY: Mild luminal irregularities PROX LAD: Mild calcification DISTAL LAD: / apical: 75 % Stenosis CIRCUMFLEX ARTERY: Mild luminal irregularities OSTIAL CIRC: 25 % Stenosis OM 2: Proximal - Previously placed stent is occluded RIGHT CORONARY ARTERY: Mild luminal irregularities MID RCA: Previously placed stent is patent DISTAL RCA: s/p stent: eccentric: 50 - 75 % Stenosis, hazy: 85 % Stenosis RT PDA: Proximal - long: smooth: 75 % Stenosis COLLATERAL FLOW: Collateral flow from Left to Left (LAD to OM2) AORTIC ROOT: Angiographically normal PCI: PCI Report: Procedure performed 1. Successful PCI of the distal RCA with placement of 3 x 38 mm drug-eluting stent/synergy Postdilated with 3 x 20 mm NC balloon and achievement of excellent result. The distal RCA is stenosis is around 70% diffuse post PCI reduced to 0% ANGIE #3 flow pre and post PCI. 2. Successful PTCA of ostial/proximal RPDA using 2 x 18 on reduction of stenosis from 90% diffuse disease to 30% ANGIE #3 flow pre and post PTCA Medical Necessity - Tobacco Use Smoking Status: Smoker, status unknown Assessment/Plan 1. CAD status post PCI The patient has resented for further evaluation of his chest discomfort and an abnormal stress test for diagnostic cardiac catheterization. This appeared to demonstrate angiographically significant appearing CAD. This patient subsequently underwent subsequent RCA PTCA/stent. The patient will continue medical therapy. He will be monitored overnight. If the patient remains symptomatically and hemodynamically stable and hopefully he will be released home in the a.m. for continued outpatient cardiovascular follow-up. 2. Hyperlipidemia The patient will continue medical management. 3. Hypertension The patient will continue medical therapy and follow-up as deemed appropriate. Comment: The patient's case has been discussed and reviewed with the patient and his spouse. This note was generated using a voice recognition system and there may be incorrect words, spelling or punctuation that were not noted when reviewing the office note prior to saving.
--- NOTE | 2020-12-12 16:46 | DCINST_ITS ---
<Deborah Fraga - Last Filed: 12/12/20 16:46> Discharge Diet: Low fat/ Low Cholesterol Lifting Restrictions: 10 pounds and also avoid any pushing or pulling for 3 days after your test. Call your doctor if your incision/area has: Continuous Slow Oozing, Sudden Increased Bleeding, Increased Pain/ Swelling, Increased Redness, Foul Smelling Discharge, Swelling at the incision site Call your doctor if you observe: Fever of 101 or Higher, Shortness of breath, Chest pain Additional Instructions: You need to stay on your plavix for at least one year An appt was made to follow up in the [facility], if you can not keep this appt please call to reschedule Allergies/Adverse Reactions: Allergies atorvastatin Adverse Reaction (Verified 11/28/20 09:57) Pt can't recall Medications to take at Discharge Vitamin E 400 units PO DAILY 11/10/16 Aspirin E.C. [Ecotrin] 81 mg PO DAILY@0800 #30 tab 11/12/16 nitroglycerin 0.4 mg sublingual tablet 0.4 mg SUBLINGUAL Q5M PRN #25 tab MDD 3 tabs 09/27/19 losartan 25 mg tablet 12.5 mg PO BID #90 tab 07/11/20 simvastatin 20 mg tablet 20 mg PO QHS #90 tab 09/23/20 clopidogrel 75 mg tablet 75 mg PO DAILY #34 tab 12/10/20 Orders to be completed after discharge: Phase II, Outpatient Cardiac Rehab Location: None Selected Primary Care Physician: Herbert Christie DO [Primary Care Provider] - Test Results: Test results from this visit will be discussed in further detail at your follow- up appointment, if applicable. Please Follow Up With: Deborah Fraga PA When: 01/07 at 0900 Cardiac Rehabilitation Info Cardiac Rehabilitation Program Information: Cardiac Rehabilitation is important for patients like you who are recovering from a heart problem. Cardiac rehabilitation programs are recognized as integral to the continued care of the patient with coronary heart disease. The cardiac rehabilitation program is designed to optimize a patient's physical, psychological, and social functioning. Health care coordinator work in cardiac rehabilitation programs and assist you with getting the treatments you need to get stronger and healthier - like exercise, healthy eating habits, and medications. Cardiac rehabilitation has been show to help people with heart problems live longer and have better life enjoyment than people who do not go to cardiac rehabilitation. Please contact the Cardiac Rehabilitation Program at [facility] at in two weeks if you have not heard from them. <SandovalBautistasharon - Last Filed: 12/13/20 12:00> Test Results: Test results from this visit will be discussed in further detail at your follow- up appointment, if applicable. Cardiac Rehabilitation Info Cardiac Rehabilitation Program Information: Cardiac Rehabilitation is important for patients like you who are recovering from a heart problem. Cardiac rehabilitation programs are recognized as integral to the continued care of the patient with coronary heart disease. The cardiac rehabilitation program is designed to optimize a patient's physical, psychological, and social functioning. Health care coordinator work in cardiac rehabilitation programs and assist you with getting the treatments you need to get stronger and healthier - like exercise, healthy eating habits, and medications. Cardiac rehabilitation has been show to help people with heart problems live longer and have better life enjoyment than people who do not go to cardiac rehabilitation. Please contact the Cardiac Rehabilitation Program at [facility] at in two weeks if you have not heard from them.
[2020-12-12] MEDS: Losartan Potassium 25 MG Tablet 12.5 MG PO (21:12)
[2020-12-13 03:00] VITALS: PULSE 55
[2020-12-13 04:00] VITALS: BP 125/75; PULSE 57; RESP 18; TEMP 36.9; O2SAT 96
[2020-12-13 06:55] VITALS: PULSE 51
[2020-12-13 07:40] VITALS: O2SAT 91
[2020-12-13 08:05] LABS: Hematocrit 39.9 % (40-54); Hemoglobin 13.1 g/dL (13.0-16.5); Mean Corp Hgb Conc 32.8 g/dL (32-36); Mean Corpuscular Hgb 30.3 pg (27.0-32.0); Mean Corpuscular Volume 92.4 fL (80-94); Mean Platelet Vol. 10.1 fl (6.2-12.0); Platelet Count 235 K/mm3 (150-450); RBC Distribution Width CV 12.9 % (11.6-14.6); RBC Distribution Width SD 43.9 fl (35.1-43.9); Red Blood Count 4.32 M/mm3 (4.6-6.2); White Blood Count 6.1 K/mm3 (4.4-11.0)
[2020-12-13 08:18] LABS: ALB/GLOB Ratio 0.9 RATIO (0.9-2.4); AST(SGOT) 15 U/L (15-37); Alanine Aminotransfer ALT/SGPT 26 U/L (16-61); Albumin, Serum 3.2 g/dL (3.2-5.0); Alkaline Phosphatase 46 U/L (45-117); Anion Gap 4 (5-15); BUN 15 mg/dL (7-18); BUN/Creat Ratio 19.2 RATIO (10-20); Calcium,Total 8.6 mg/dL (8.5-10.1); Chloride 110 mmol/L (98-107); Creatinine, Serum 0.78 mg/dL (0.70-1.30); EST Glomerular Filtration Rate 109 mL/min (>60); Est Glom Filt Rate - Afr Amer 132 mL/min (>60); Estimated Creatinine Clearance 110.49 ml/min; Globulin 3.6 g/dL (2.2-4.2); Glucose 94 mg/dL (74-106); Potassium 3.9 mmol/L (3.5-5.1); Protein, Total 6.8 g/dL (6.4-8.2); Sodium Level 142 mmol/L (136-145)
[2020-12-13 09:31] VITALS: BP 144/73; PULSE 56; RESP 17; TEMP 36.7; O2SAT 96
--- NOTE | 2020-12-13 10:00 | EKG12_ITS ---
Test Reason : POST PCI Blood Pressure : / mmHG Vent. Rate : 045 BPM Atrial Rate : 045 BPM P-R Int : 212 ms QRS Dur : 106 ms QT Int : 468 ms P-R-T Axes : 007 -09 012 degrees QTc Int : 404 ms Sinus bradycardia with 1st degree A-V block Otherwise normal ECG When compared with ECG of 22-JAN-2017 05:33, No significant change was found Confirmed by LUCILLE BERMUDEZ, AJITH ([id number]), bone grinder ORA SANTILLAN ([id number]) on 12/16/2020 12:56:05 PM Referred By: Philippe Jean Confirmed By:AJITH ADKINS MD
[2020-12-13] MEDS: Simvastatin 20 MG Tablet PO (10:16)
[2020-12-13] MEDS: Losartan Potassium 25 MG Tablet 12.5 MG PO (10:16)
[2020-12-13] MEDS: Clopidogrel Bisulfate 75 MG Tablet PO (10:16)
[2020-12-13] MEDS: Aspirin E.C. 81 MG Tablet PO (10:16)
[2020-12-13 13:21] VITALS: BP 146/78; PULSE 57; RESP 16; TEMP 36.9; O2SAT 96
== END 2020-12-13 13:21 | disposition home or self-care (01) ==
LOC: CLSP 07:00 → PCU 15:19
PROVIDERS: Internal Medicine Interventional Cardiology; Physician Assistant Medical; PCP Family Medicine; Referring Provider Internal Medicine Cardiovascular Disease; Visit Provider Internal Medicine Cardiovascular Disease
DX: I25.119 Atherosclerotic heart disease of native coronary artery with unspecified angina pectoris (principal); I25.2 Old myocardial infarction; I10 Essential (primary) hypertension; E78.5 Hyperlipidemia, unspecified; E66.9 Obesity, unspecified; Z68.36 Body mass index [BMI] 36.0-36.9, adult; Z95.5 Presence of coronary angioplasty implant and graft; Z79.899 Other long term (current) drug therapy
CPT/HCPCS: 36415; 71046; 80053; 85027; 85610; 85730; 92928; 92929; 93005; 93458; 99152; 99153; J7030; J7040; Q9967; C1725; C1769; C1874; C1887; C1894; C9600; C9601

== ENCOUNTER → 2021-01-14 13:01 | Outpatient (CLI) | payer OTHER, SELFPAY ==
[2017-01-21 10:21] VITALS: BMI 35.7
[2021-01-12 08:34] VITALS: BMI 37.1
== END ==
PROVIDERS: PCP Family Medicine; Referring Provider Internal Medicine Cardiovascular Disease; Visit Provider Internal Medicine Cardiovascular Disease
DX: I25.10 Atherosclerotic heart disease of native coronary artery without angina pectoris (principal)

== ENCOUNTER → 2021-09-14 | Outpatient (CLI) | payer OTHER, SELFPAY ==
[2017-01-21 10:21] VITALS: BMI 35.7
== END | disposition home or self-care (01) ==
LOC: LABSPEC 15:28
PROVIDERS: PCP Family Medicine; Visit Provider Family Medicine
DX: Z20.822 Contact with and (suspected) exposure to COVID-19 (principal)
CPT/HCPCS: 87633; 87635; U0005; U0003

== ENCOUNTER 2021-12-22 14:52 | Outpatient (CLI) | payer OTHER, SELFPAY ==
[2017-01-21 10:21] VITALS: BMI 35.7
--- NOTE | 2021-12-22 14:54 | ECHOCS_ITS ---
Reason For Study: MURMUR Procedure This was a 2D Doppler, Color Flow transthoracic echocardiogram. The study was technically difficult. Contrast injection was performed. Exam performed in department. Left Ventricle Normal LV size. Left ventricular systolic function is normal. The estimated ejection fraction is 65 %. No evidence for diastolic dysfunction. No regional wall motion abnormalities noted. Right Ventricle Normal RV size. Normal systolic function. Atria Normal left atrium. Normal right atrium. No doppler evidence for ASD. Mitral Valve There is no mitral annular calcification. Normal mitral valve. Trivial mitral valve insufficiency. Tricuspid Valve Normal tricuspid valve. Trivial tricuspid valve insufficiency. Right ventricular systolic pressure estimated to be 25 mmHg. Aortic Valve Trisinus/trileaflet aortic valve. Mild diffuse aortic valve thickening. Mild focal aortic valve calcification. Aortic sclerosis, no stenosis. Pulmonic Valve The pulmonic valve is not well visualized. Great Vessels Normal sized aortic root. Pericardium/Pleural No pericardial effusion. Medication 22 gauge I.V. with prn adaptor inserted into right arm. Diluted definity 3ml given slow IV push to enhance endocardial definition. MMode/2D Measurements & Calculations LVIDd: 5.5 cm IVSd: 1.0 cm LVOT diam: 2.0 cm LVIDs: 4.0 cm LVPWd: 1.0 cm RVDd: 4.0 cm FS: 27.6 % LVOT area: 3.3 cm2 Ao root diam: 3.2 cm LAV(MOD-bp): 41.9 ml LVAd ap4: 37.0 cm2 LAV(MOD-bp) Indexed: 18.0 ml/m2 LVLd ap4: 8.4 cm LAV(MOD-sp2): 39.7 ml EDV(MOD-sp4): 132.6 ml LAV(MOD-sp4): 44.3 ml EDV(sp4-el): 138.6 ml LVAs ap4: 20.2 cm2 LVLs ap4: 7.4 cm ESV(MOD-sp4): 46.9 ml ESV(sp4-el): 46.5 ml EF(MOD-sp4): 64.6 % EF(sp4-el): 66.5 % SV(MOD-sp4): 85.7 ml SV(sp4-el): 92.1 ml LA A4 area: 16.9 cm2 LA dimension(2D): 4.3 cm RA A4 area: 16.1 cm2 Time Measurements MV dec time: 0.23 sec Doppler Measurements & Calculations MV E max александр: 98.0 cm/sec Lat Peak E' Александр: 13.8 cm/sec Med Peak E' Александр: 8.7 cm/sec MV A max александр: 87.3 cm/sec E/E' lat: 7.1 E/E' med: 11.2 MV E/A: 1.1 Ao V2 max: 214.4 cm/sec LV V1 max: 136.0 cm/sec SV(LVOT): 111.8 ml Ao max P.4 mmHg LV V1 max P.4 mmHg Ao V2 mean: 141.8 cm/sec LV V1 mean P.6 mmHg Ao mean P.2 mmHg LV V1 mean: 88.5 cm/sec Ao V2 VTI: 44.2 cm LV V1 VTI: 34.1 cm BRANDON(I,D): 2.5 cm2 BRANDON(V,D): 2.1 cm2 PA V2 max: 133.8 cm/sec TR max александр: 236.4 cm/sec TR max P.4 mmHg ECHO/Echo Complete W/ Contrast Interpretation Summary The study was technically difficult. Contrast injection was performed. Left ventricular systolic function is normal. The estimated ejection fraction is 65 %. Trivial mitral valve insufficiency. Trivial tricuspid valve insufficiency. Aortic sclerosis, no stenosis. Right ventricular systolic pressure estimated to be 25 mmHg. No evidence for diastolic dysfunction. Ordering Physician: Philippe Jean Referring Physician: ROSMERY SALAS Performed By: Vanesa Li RDCS
== END 2021-12-22 23:59 | disposition home or self-care (01) ==
LOC: CVS 14:54
PROVIDERS: PCP Family Medicine; Referring Provider Internal Medicine Cardiovascular Disease; Visit Provider Internal Medicine Cardiovascular Disease
DX: R01.1 Cardiac murmur, unspecified (principal)
CPT/HCPCS: 93306; Q9957; A4216; C8929

== ENCOUNTER 2021-12-29 10:46 | Outpatient (CLI) | payer OTHER, SELFPAY ==
[2017-01-21 10:21] VITALS: BMI 35.7
[2021-12-29 13:06] LABS: AST(SGOT) 12 U/L (15-37); Alanine Aminotransfer ALT/SGPT 31 U/L (16-61); Albumin, Serum 3.5 g/dL (3.2-5.0); Alkaline Phosphatase 47 U/L (45-117); Bilirubin, Direct 0.11 mg/dL (0.00-0.30); Cholesterol 173 mg/dL (200); Globulin 4.1 g/dL (2.2-4.2); High Density Lipoprotein 69 mg/dL; Protein, Total 7.6 g/dL (6.4-8.2); Triglycerides 89 mg/dL; Very Low Density Lipoprotein 18 mg/dL (5-40)
== END 2021-12-29 23:59 | disposition home or self-care (01) ==
LOC: LAB 10:47
PROVIDERS: PCP Family Medicine; Referring Provider Internal Medicine Cardiovascular Disease; Visit Provider Internal Medicine Cardiovascular Disease
DX: E78.00 Pure hypercholesterolemia, unspecified (principal)
CPT/HCPCS: 36415; 80061; 80076

== ENCOUNTER → 2022-04-13 | Outpatient (CLI) | payer OTHER, SELFPAY ==
[2017-01-21 10:21] VITALS: BMI 35.7
[2022-04-09 10:25] LABS: Absolute Lymphocyte Count 1.34 X10^3/uL (0.83-4.51); Absolute Neutrophil Count 3.5 X10^3/uL (2.0-7.7); Basophil# 0.03 X10^3/uL; Basophil% 0.5 % (0-1); Eosinophil# 0.17 X10^3/uL; Eosinophils% 3.1 % (0-5); Hematocrit 39.7 % (40-54); Hemoglobin 13.1 g/dL (13.0-16.5); Lymphocyte # 1.34 X10^3/ul (0.83-4.51); Lymphocyte % 24.4 % (19-41); Mean Corpuscular Hgb 30.6 pg (27.0-32.0); Mean Corpuscular Volume 92.8 fL (80-94); Mean Platelet Vol. 10.8 fl (6.2-12.0); Monocyte# 0.44 X10^3/uL; NRBC Flagged by Analyzer 0 % (0-5); Neutrophil % 63.8 % (47-70); Platelet Count 238 K/mm3 (150-450); RBC Distribution Width CV 13.2 % (11.6-14.6); RBC Distribution Width SD 44.6 fl (35.1-43.9); Red Blood Count 4.28 M/mm3 (4.6-6.2); White Blood Count 5.5 K/mm3 (4.4-11.0)
[2022-04-09 11:10] LABS: ALB/GLOB Ratio 0.8 RATIO (0.9-2.4); AST(SGOT) 16 U/L (15-37); Alanine Aminotransfer ALT/SGPT 35 U/L (16-61); Albumin, Serum 3.3 g/dL (3.2-5.0); Alkaline Phosphatase 43 U/L (45-117); Anion Gap 6 (5-15); BUN 21 mg/dL (7-18); BUN/Creat Ratio 21.8 RATIO (10-20); Chloride 108 mmol/L (98-107); Creatinine, Serum 0.96 mg/dL (0.70-1.30); EST Glomerular Filtration Rate 86 mL/min (>60); Est Glom Filt Rate - Afr Amer 104 mL/min (>60); Globulin 4.1 g/dL (2.2-4.2); Glucose 110 mg/dL (74-106); Potassium 3.8 mmol/L (3.5-5.1); Protein, Total 7.4 g/dL (6.4-8.2); Sodium Level 139 mmol/L (136-145)
--- NOTE | 2022-04-13 16:04 | EKG12_ITS ---
Test Reason : PRE OP Blood Pressure : / mmHG Vent. Rate : 048 BPM Atrial Rate : 048 BPM P-R Int : 192 ms QRS Dur : 098 ms QT Int : 462 ms P-R-T Axes : 017 -11 022 degrees QTc Int : 412 ms Sinus bradycardia Otherwise normal ECG Confirmed by EZRA BERMUDEZ, CLIFF ([id number]), editorial intern ORA SANTILLAN ([id number]) on 04/14/2022 8:21:06 AM Referred By: gloria guerrero Confirmed By:CLIFF MUNGUIA MD
== END | disposition home or self-care (01) ==
LOC: PSN 16:01
PROVIDERS: PCP Family Medicine
DX: R00.1 Bradycardia, unspecified (principal); M25.561 Pain in right knee; E78.00 Pure hypercholesterolemia, unspecified; I10 Essential (primary) hypertension
CPT/HCPCS: 36415; 80053; 85025; 87081; 93005

== ENCOUNTER → 2022-10-27 | Outpatient (CLI) | payer OTHER, SELFPAY ==
[2017-01-21 10:21] VITALS: BMI 35.7
--- NOTE | 2022-10-27 09:34 | STRESSREP_ITS ---
Stress Test Report Date: 10-27-2021 Procedure: Exercise tolerance test/imaging study Indications: Chest pain, CAD, non-ST segment elevation FL, status post PCI Consent: Per the patient Procedure: The patient exercised on a Quinton protocol for 7 minutes and 45 seconds completing Stage II and 1 minute and 45 seconds of Stage III achieving a peak heart rate of 142 bpm (87% predicted maximal heart rate) with resting blood pressure of 158/94 mmHg and a peak blood pressure 202/80 mmHg and a peak MET capacity of 9 METs. The baseline ECG demonstrated sinus bradycardia; poor R wave progression. The peak exercise ECG demonstrated no obvious ECG changes. There was a rare PVC during exercise. The functional capacity was considered average. There was no complaint of chest discomfort during exercise or recovery. The examination was discontinued secondary to dyspnea. Impression: 1. Technically adequate (percent predicted maximal heart rate greater than 85%) exercise tolerance test 2. Peak exercise ECG with no obvious ECG changes 3. There was a rare PVC during exercise 4. Nuclear images pending Myocardial perfusion imaging study: Technique: The patient was injected with 14.6 mCi of technetium 99m Cardiolite and subsequently rest SPECT Cardiolite nuclear imaging was obtained in the horizontal long, vertical long, and short axis views. The patient exercised on a Quinton protocol for 7 minutes and 45 seconds completing Stage II and 1 minute and 45 seconds of Stage III achieving a peak heart rate of 142 bpm (87% predicted maximal heart rate) with resting blood pressure of 158/94 mmHg and a peak blood pressure 202/80 mmHg and a peak MET capacity of 9 METs. The patient was injected with 44.3 mCi of technetium 99m Cardiolite and subsequently stress SPECT Cardiolite nuclear imaging was obtained in the horizontal long, vertical long, and short axis views. A gated Cardiolite study at peak stress was obtained. Interpretation: Rest and stress SPECT Cardiolite nuclear imaging status post realignment, normalization, and attenuation correction, demonstrates the appearance of a very small area of subtle diminished tracer uptake near the lateral apical segments without significant change between rest and stress. There is end systolic thickening and brightening. The gated Cardiolite study demonstrates myocardial thickening and inward wall motion. The reported LVEF is 58%. Impression: 1. Rest and stress SPECT Cardiolite nuclear imaging demonstrate myocardial perfusion changes potentially compatible with an area of physiologic apical thinning, however, an area of previous myocardial injury/infarction involving a very small area of the lateral apical segment cannot necessarily be excluded. There are no myocardial perfusion changes considered diagnostic for associated stress-induced myocardial ischemia. 2. The gated Cardiolite study reports an LVEF of 58%. This note was generated with [employer] software. It may contain incorrect words, spelling, and punctuation that were not noted in checking the note before signing.
== END | disposition home or self-care (01) ==
LOC: CVS 06:18
PROVIDERS: PCP Family Medicine; Visit Provider Nurse Practitioner Family
DX: R07.9 Chest pain, unspecified (principal); I25.119 Atherosclerotic heart disease of native coronary artery with unspecified angina pectoris; Z95.5 Presence of coronary angioplasty implant and graft
CPT/HCPCS: 78452; 93017; A9500; A4216

== ENCOUNTER → 2024-02-10 | Outpatient (CLI) | payer OTHER, SELFPAY ==
[2017-01-21 10:21] VITALS: BMI 35.7
[2024-02-10 11:38] LABS: AST(SGOT) 21 U/L (15-37); Alanine Aminotransfer ALT/SGPT 25 U/L (16-61); Albumin, Serum 3.6 g/dL (3.2-5.0); Alkaline Phosphatase 48 U/L (45-117); Bilirubin, Direct 0.12 mg/dL (0.00-0.30); Cholesterol 207 mg/dL (200); Globulin 4.3 g/dL (2.2-4.2); High Density Lipoprotein 51 mg/dL; Protein, Total 7.9 g/dL (6.4-8.2); Triglycerides 75 mg/dL; Very Low Density Lipoprotein 15 mg/dL (5-40)
== END | disposition home or self-care (01) ==
LOC: LAB 10:12
PROVIDERS: PCP Family Medicine; Referring Provider Nurse Practitioner Family; Visit Provider Nurse Practitioner Family
DX: I25.119 Atherosclerotic heart disease of native coronary artery with unspecified angina pectoris (principal); E78.00 Pure hypercholesterolemia, unspecified
CPT/HCPCS: 36415; 80061; 80076

== ENCOUNTER → 2024-04-18 | Outpatient (CLI) | payer OTHER, SELFPAY ==
[2017-01-21 10:21] VITALS: BMI 35.7
--- NOTE | 2024-04-18 14:05 | ECHOCS_ITS ---
Reason For Study: Dizziness Procedure This was a 2D Doppler, Color Flow transthoracic echocardiogram. Contrast injection was performed. Exam performed in department. Left Ventricle Mild concentric left ventricular hypertrophy. Normal LV size. The left ventricular ejection fraction is 65 %. Normal diastology for age. Right Ventricle Normal right ventricle. Atria The left atrium is mildly enlarged. Normal right atrium. Mitral Valve Mild (1+) mitral valve insufficiency. Tricuspid Valve Trivial tricuspid valve insufficiency. Unable to estimate RV systolic pressure due to insufficient tricuspid regurgitant envelope. Aortic Valve Mildly calcified trileaflet aortic valve. Mild aortic valve stenosis with mild regurgitation. Pulmonic Valve The pulmonic valve is not well visualized. Great Vessels Normal aortic root. Pericardium/Pleural No pericardial effusion. Medication Diluted definity 1.5ml given slow IV push to enhance endocardial definition. MMode/2D Measurements & Calculations LVIDd: 4.8 cm IVSd: 1.3 cm LVOT diam: 2.1 cm LVIDs: 3.6 cm LVPWd: 1.2 cm RVDd: 3.5 cm FS: 25.5 % LVOT area: 3.5 cm2 Ao root diam: 3.5 cm LAV(MOD-bp): 59.3 ml LVAd ap4: 30.4 cm2 LAV(MOD-bp) Indexed: 25.6 ml/m2 LVLd ap4: 8.5 cm LAV(MOD-sp2): 45.8 ml EDV(MOD-sp4): 89.0 ml LAV(MOD-sp4): 69.7 ml EDV(sp4-el): 92.3 ml LVAs ap4: 14.7 cm2 LVLs ap4: 6.5 cm ESV(MOD-sp4): 28.0 ml ESV(sp4-el): 28.0 ml EF(MOD-sp4): 68.5 % EF(sp4-el): 69.6 % SV(MOD-sp4): 61.0 ml SV(sp4-el): 64.3 ml LA A4 area: 21.5 cm2 LA dimension(2D): 4.4 cm RA A4 area: 9.6 cm2 Time Measurements MV dec time: 0.33 sec Doppler Measurements & Calculations MV E max александр: 76.4 cm/sec Lat Peak E' Александр: 10.0 cm/sec Med Peak E' Александр: 6.6 cm/sec MV A max александр: 95.6 cm/sec E/E' lat: 7.6 E/E' med: 11.5 MV E/A: 0.80 MV dec slope: 232.8 cm/sec2 Ao V2 max: 224.3 cm/sec LV V1 max: 138.0 cm/sec Ao max P.2 mmHg LV V1 max P.6 mmHg Ao V2 mean: 150.7 cm/sec LV V1 mean P.7 mmHg Ao mean P.3 mmHg LV V1 mean: 91.0 cm/sec Ao V2 VTI: 48.5 cm LV V1 VTI: 28.7 cm AV (velocity ratio): 0.59 BRANDON(I,D): 2.1 cm2 BRANDON(V,D): 2.1 cm2 SV(LVOT): 99.5 ml PA V2 max: 107.6 cm/sec ECHO/Echo Complete W/ Contrast Interpretation Summary The left ventricular ejection fraction is 65 %. The left atrium is mildly enlarged. Mild (1+) mitral valve insufficiency. Mildly calcified trileaflet aortic valve. Mild aortic valve stenosis with mild regurgitation. Ordering Physician: Naomy Diaz Referring Physician: Herbert Christie Performed By: Angelina Charlton, PAOLA, RVT
--- NOTE | 2024-04-18 14:05 | CDU_ITS ---
Reason For Study: Lightheadedness Rt. Velocities/BP Lt. Velocities/BP Prox CCA 85.5/10.6 cm/sec. Prox CCA 87.9/14.2 cm/sec. Mid CCA 63.9/16.6 cm/sec. Mid CCA 64.6/15.5 cm/sec. Dist CCA 61.0/18.5 cm/sec. Dist CCA 75.6/17.9 cm/sec. Prox ICA 44.1/18.0 cm/sec. Prox ICA 66.7/21.4 cm/sec. Mid ICA 53.5/20.9 cm/sec. Mid ICA 43.8/16.1 cm/sec. Dist ICA 68.4/19.3 cm/sec. Dist ICA 62.1/20.2 cm/sec. Rt. ICA/CCA = 1.07. Lt. ICA/CCA = 1.03. Prox ECA 125.3/17.5 cm/sec. Prox ECA 107.0/10.2 cm/sec. Rt. Vert. 58.9/22.6 cm/sec. Lt. Vert. 37.4/8.3 cm/sec. Right Extracranial There is intimal thickening but no significant atherosclerotic plaque noted in the right common carotid artery. There is heterogeneous, irregular atherosclerotic plaque noted in the right internal carotid artery. There is intimal thickening but no significant atherosclerotic plaque noted in the right external carotid artery. Antegrade flow is noted in the right vertebral artery. Left Extracranial There is intimal thickening but no significant atherosclerotic plaque noted in the left common carotid artery. There is heterogeneous, irregular atherosclerotic plaque noted in the left internal carotid artery. There is intimal thickening but no significant atherosclerotic plaque noted in the left external carotid artery. Antegrade flow is noted in the left vertebral artery. Procedure Carotid Duplex 28297. This is a Carotid Duplex examination using B-mode, color flow and specral Doppler. Exam performed in department. VL/Carotid Duplex Ultrasound Interpretation Summary Mild (<50%) stenosis right extracranial internal carotid. Mild (<50%) stenosis left extracranial internal carotid. Patent and antegrade vertebrals bilaterally. Ordering Physician: Naomy Diaz Referring Physician: Herbert Christie Performed By: Rosa Raines RVT and Student
== END | disposition home or self-care (01) ==
PROVIDERS: PCP Family Medicine; Referring Provider Internal Medicine Cardiovascular Disease; Visit Provider Internal Medicine Cardiovascular Disease
DX: R42 Dizziness and giddiness (principal); R55 Syncope and collapse; I25.10 Atherosclerotic heart disease of native coronary artery without angina pectoris
CPT/HCPCS: 93306; 93880; Q9957; A4216; C8929

== ENCOUNTER → 2024-09-21 | Outpatient (CLI) | payer OTHER, SELFPAY ==
[2017-01-21 10:21] VITALS: BMI 35.7
[2024-09-21 13:10] LABS: ALB/GLOB Ratio 0.8 RATIO (0.9-2.4); AST(SGOT) 17 U/L (15-37); Alanine Aminotransfer ALT/SGPT 37 U/L (16-61); Albumin, Serum 3.5 g/dL (3.2-5.0); Alkaline Phosphatase 45 U/L (45-117); Anion Gap 3 (5-15); BUN 20 mg/dL (7-18); BUN/Creat Ratio 19.8 RATIO (10-20); Calcium,Total 9.4 mg/dL (8.5-10.1); Chloride 104 mmol/L (98-107); Cholesterol 164 mg/dL (200); Creatinine, Serum 1.01 mg/dL (0.70-1.30); EST Glomerular Filtration Rate 80 mL/min (>60); Est Glom Filt Rate - Afr Amer 97 mL/min (>60); Globulin 4.3 g/dL (2.2-4.2); Glucose 105 mg/dL (74-106); High Density Lipoprotein 64 mg/dL; Potassium 4.1 mmol/L (3.5-5.1); Protein, Total 7.8 g/dL (6.4-8.2); Sodium Level 138 mmol/L (136-145); Triglycerides 81 mg/dL; Very Low Density Lipoprotein 16 mg/dL (5-40)
== END | disposition home or self-care (01) ==
LOC: LAB 11:35
PROVIDERS: PCP Family Medicine; Referring Provider Internal Medicine Cardiovascular Disease; Visit Provider Internal Medicine Cardiovascular Disease
DX: I10 Essential (primary) hypertension (principal); R42 Dizziness and giddiness; R07.9 Chest pain, unspecified; E78.5 Hyperlipidemia, unspecified
CPT/HCPCS: 36415; 80053; 80061

== ENCOUNTER → 2025-08-27 | Outpatient (CLI) | payer OTHER, SELFPAY ==
[2017-01-21 10:21] VITALS: BMI 35.7
[2025-08-27 11:45] LABS: Hematocrit 41.9 % (40-54); Hemoglobin 13.9 g/dL (13.0-16.5); Mean Corp Hgb Conc 33.2 g/dL (32-36); Mean Corpuscular Volume 93.1 fL (80-94); Mean Platelet Vol. 10.8 fl (6.2-12.0); Platelet Count 281 K/mm3 (150-450); RBC Distribution Width CV 13.0 % (11.6-14.6); RBC Distribution Width SD 44.3 fl (35.1-43.9); Red Blood Count 4.50 M/mm3 (4.6-6.2); White Blood Count 5.3 K/mm3 (4.4-11.0)
[2025-08-27 12:19] LABS: AST(SGOT) 20 U/L (<=37); Alanine Aminotransfer ALT/SGPT 27 U/L (<=46); Albumin, Serum 4.1 g/dL (3.4-4.8); Alkaline Phosphatase 45 U/L (40-129); Anion Gap 10 (5-15); BUN 14 mg/dL (4-19); BUN/Creat Ratio 13.7 RATIO (10-20); Calcium,Total 9.3 mg/dL (7.6-11.0); Carbon Dioxide 24.8 mmol/L (21.0-32.0); Chloride 104 mmol/L (98-108); Cholesterol 240 mg/dL (<=200); Globulin 3.5 g/dL (2.2-4.2); Glucose 103 mg/dL (70-99); Low Density Lipoprotein Calc. 164 mg/dL; Potassium 4.0 mmol/L (3.3-5.1); Triglycerides 109 mg/dL; Very Low Density Lipoprotein 22 mg/dL (5-40); cholesterol:hdl ratio screen 4.27
== END | disposition home or self-care (01) ==
LOC: LAB 10:12
PROVIDERS: PCP Family Medicine; Referring Provider Internal Medicine Cardiovascular Disease; Visit Provider Internal Medicine Cardiovascular Disease
DX: I25.10 Atherosclerotic heart disease of native coronary artery without angina pectoris (principal); I10 Essential (primary) hypertension; E78.5 Hyperlipidemia, unspecified
CPT/HCPCS: 36415; 80053; 80061; 85027

== ENCOUNTER → 2025-09-04 | Outpatient (CLI) | payer OTHER, SELFPAY ==
[2017-01-21 10:21] VITALS: BMI 35.7
[2025-09-10 11:08] LABS: Testosterone, % Free 2.49 % (1.50-4.20); Testosterone, Free 8.86 ng/dL (5.00-21.00)
== END | disposition home or self-care (01) ==
LOC: BFHLAB 09:56
PROVIDERS: PCP Family Medicine; Visit Provider Nurse Practitioner Family
DX: E29.1 Testicular hypofunction (principal); W57.XXXA Bitten or stung by nonvenomous insect and other nonvenomous arthropods, initial encounter
CPT/HCPCS: 36415; 84402; 84403; 86617

== ENCOUNTER → 2025-09-20 | Outpatient (CLI) | payer OTHER, SELFPAY ==
[2017-01-21 10:21] VITALS: BMI 35.7
--- NOTE | 2025-09-20 07:14 | ECHOCS_ITS ---
Reason For Study Reason For Study: CAD Procedure This was a 2D Doppler, Color Flow transthoracic echocardiogram. The study was technically difficult. Exam performed in department. Left Ventricle Normal LV size. Mild concentric left ventricular hypertrophy. The left ventricular ejection fraction is 60 %. Stage 1 diastolic dysfunction. Right Ventricle Normal right ventricle. Atria The left atrium is moderately enlarged. Normal right atrium. Mitral Valve Mild (1+) mitral valve insufficiency. Tricuspid Valve Trivial tricuspid valve insufficiency. Unable to estimate RV systolic pressure due to insufficient tricuspid regurgitant envelope. Aortic Valve Mild calcific aortic valve stenosis. Mean peak gradient 12 mmHg. Trivial regurgitation. Pulmonic Valve Trivial pulmonic valve insufficiency. Great Vessels Mildly dilated ascending aorta. Pericardium/Pleural No pericardial effusion. Medication Diluted definity 1.5ml given slow IV push to enhance endocardial definition. MMode/2D Measurements & Calculations LVIDd: 4.8 cm IVSd: 1.2 cm LVOT diam: 2.0 cm LVIDs: 2.8 cm LVPWd: 1.2 cm RVDd: 3.5 cm FS: 41.3 % LVOT area: 3.0 cm2 asc Aorta Diam: 4.2 cm LAV(MOD-bp): 68.7 ml LVAd ap4: 39.7 cm2 LAV(MOD-bp) Indexed: 32.1 ml/m2 LVLd ap4: 8.9 cm LAV(MOD-sp2): 58.8 ml EDV(MOD-sp4): 141.7 ml LAV(MOD-sp4): 66.9 ml EDV(sp4-el): 150.1 ml LVAs ap4: 21.1 cm2 LVLs ap4: 7.4 cm ESV(MOD-sp4): 48.8 ml ESV(sp4-el): 50.9 ml EF(MOD-sp4): 65.5 % EF(sp4-el): 66.1 % LVAd ap2: 38.0 cm2 SV(MOD-sp4): 92.9 ml LVLd ap2: 8.5 cm EDV(MOD-bp): 146.8 ml SI(MOD-sp4): 43.3 ml/m2 EDV(MOD-sp2): 142.4 ml ESV(MOD-bp): 52.9 ml EDV(sp2-el): 144.7 ml EF(MOD-bp): 63.9 % LVAs ap2: 23.1 cm2 LVLs ap2: 7.8 cm ESV(MOD-sp2): 55.8 ml ESV(sp2-el): 57.8 ml EF(MOD-sp2): 60.8 % SV(MOD-sp2): 86.6 ml SV(sp4-el): 99.2 ml LA A4 area: 22.3 cm2 SI(MOD-sp2): 40.4 ml/m2 LA dimension(2D): 4.7 cm RA A4 area: 13.6 cm2 TAPSE: 2.1 cm Time Measurements MV dec time: 0.22 sec Doppler Measurements & Calculations MV E max александр: 89.9 cm/sec Lat Peak E' Александр: 11.0 cm/sec Med Peak E' Александр: 7.5 cm/sec MV A max александр: 70.7 cm/sec E/E' lat: 8.1 E/E' med: 12.0 MV E/A: 1.3 Ao V2 max: 234.0 cm/sec LV V1 max: 107.8 cm/sec MV dec slope: 417.9 cm/sec2 Ao max P.9 mmHg LV V1 max P.6 mmHg Ao V2 mean: 168.7 cm/sec LV V1 mean P.4 mmHg Ao mean P.5 mmHg LV V1 mean: 73.3 cm/sec Ao V2 VTI: 54.6 cm LV V1 VTI: 26.9 cm AV (velocity ratio): 0.49 BRANDON(I,D): 1.5 cm2 BRANDON(V,D): 1.4 cm2 SV(LVOT): 80.9 ml PA V2 max: 117.5 cm/sec ECHO/Echo Complete W/ Contrast Interpretation Summary Mild concentric left ventricular hypertrophy. The left ventricular ejection fraction is 60 %. Stage 1 diastolic dysfunction. The left atrium is moderately enlarged. Mild (1+) mitral valve insufficiency. Mild calcific aortic valve stenosis. Mean peak gradient 12 mmHg. Trivial regurg itation. Mildly dilated ascending aorta. The study was technically difficult. Ordering Physician: Naomy Diaz Referring Physician: Herbert Christie Performed By: Candice Castro RDCS
--- OUTSIDE RECORDS SUMMARY | 2025-09-20 07:15 | XMS RPT_ITS | CCD ---
Author Organization [facility] Care Team Providers Care Powderer Name Role Phone Gita DELACRUZ, Naa Workman Unavailable Unavailable Ilana Brooks Unavailable Unavailable Gita DELACRUZ, Naa Workman Unavailable Unavailable JAYME Ho, Ofe Caceres Unavailable Unavailabl mirela Fraga PA-C, Deborah Caceres Unavailable [phone] JAYME Ho, Ofe Caceres Unavailable Unavailcaro Ho RN, Ofe Caceres Unavailable Unavailabl Bethany Hernández Unavailable Unavailable JAYME Ho, Ofe Caceres Unavailable Unavailabl mirela Duque MD, Justo Silva Unavailable JAYME Ho, Ofe Caceres Unavailable Unavailabl e Fritz, Harumi Y Unavailable Unavailable JAYME Ho, Ofe Caceres Unavailable Unavailabl e DeFinis, Harumi Y Unavailable Unavailable Roof BARK SKINNER, Gideon Guerrero Unavailable Ilana Brooks Unavailable Unavailable LESIA JOSHUA Unavailable Unavailable LESIA JOSHUA Unavailable Unavailable UNKNOWN, REFERR Unavailable Unavailable INCKO HIGGINS Unavailable Unavailab le Ilana Brooks Unavailable Unavailable Gita DELACRUZ, Naa Workman Unavailable Unavailable Gita DELACRUZ, Naa A Unavailable Unavailable Gita DELACRUZ, Naa A Unavailable Unavailable Ilana Brooks Unavailable Unavailable Bethany Vargas Unavailable Unavailable Dr. Rosmery Christie Primary Care Provider [phone] Dr. Rosmery Christie Referring Provider Dr. Philippe Jean Attending Provider [phone] ROSMERY CHRISTIE DO Primary Care Physician [phone] Dr. Rosmery Christie Primary Care Provider [phone] Dr. Philippe Jean Attending Provider candace donnelly Referring Provider Unavaila Dr. Rosmery Thakkar Primary Care Provider Roof BARK SKINNER, BARK SKINNER-C Gideon Guerrero Other Provider Dr. Philippe Jean Attending Provider Roof BARK SKINNER, BARK SKINNER-C Gideon Guerrero Attending Provider Dr. Rosmery Christie Referring Provider Rosmery Christie Referring Unavailable Rosmery Christie Primary Care Unavailable Joe, Naomy Attending Unavailable Rosmery Christie Primary Care Unavailable Rosmery Christie Referring Unavailable Joe, Naomy Attending Unavailable Rosmery Christie Primary Care Unavailable Joe, Naomy Attending Unavailable Joe, Naomy Referring Unavailable Alexsi Delong Attending Unavailable Rosmery Christie Primary Care Unavailable Rosmery Christie Referring Unavailable Joe, Naomy Attending Unavailable Rosmery Christie Primary Care Unavailable Joe, Naomy Referring Unavailable Joe, Naomy Attending Unavailable Rosmery Christie Primary Care Unavailable Rosmery Christie Primary Care Unavailable Roof BARK SKINNER, Gideon Guerrero Attending Unavailable Roof BARK SKINNERGideon Referring Unavailable Joe, Naomy Referring Unavailable Joe, Naomy Attending Unavailable Rosmery Christie Primary Care Unavailable Allergies Allergy Classification Reported Allergen(s) Allergy Type Date of Onset Reaction(s) Facility (20 sources) ATORVASTIN drug allergy 7 stomach upset [facility] Work Phone: (17 sources) NKDA drug allergy 7 [facility] Work Phone: (8 sources) atorvastatin; Translations: [ATORVASTATIN] Drug Allergy 7 [facility], Pt can't recall [facility] Repository Medications Current Medications Medication Drug Class(es) Dates Sig (Normalized) Sig (Original) aspirin 81 mg delayed release oral tablet (20 sources) Nonsteroidal Anti-inflammatory Drug Start: 11-12-2016 take 81 mg by mouth once daily Aspirin Active 81 MG PO DAILY@0800 30 November 12, 2016 1:00am icosapent ethyl 1000 mg oral capsule (12 sources) Start: 01-12-2021 End: 02-03-2024 Icosapent Ethyl (Vascepa) 1 gram capsule Active 2 GM PO TWICE A DAY 360 February 03, 2024 9:50am losartan potassium 25 mg oral tablet (20 sources) Angiotensin 2 Receptor Saravanan Start: 06-11-2022 End: 08-12-2023 take 25 mg by mouth twice daily Losartan Active 25 MG PO TWICE A DAY 180 August 12, 2023 10:05am Start: 01-20-2017 End: 06-11-2022 take 12.5 mg by mouth twice daily Losartan Discontinued 12.5 MG PO TWICE A DAY 90 June 23, 2021 4:49pm June 11, 2022 8:28am Start: 01-17-2017 take 1 tablet by iftikhar th twice daily COZAAR 25 MG TABS One half tablet by mouth twice daily LOSARTAN POTASSIUM [id number] Justo Duque MD Start: 11-15-2016 End: 01-17-2017 take 1 tablet by mouth twice daily LOSARTAN POTASSIUM 50 MG TABS One half tablet by mouth twice a day LOSARTAN POTASSIUM [id number] Bethany Vargas Start: 11-15-2016 take 1 tablet by iftikhar th once daily LOSARTAN POTASSIUM 50 MG TABS One tablet by mouth daily LOSARTAN POTASSIUM [id number] Deborah Gallego RN traMADol hydrochloride 50 mg oral tablet (2 sources) Opioid Agonist Start: 05-28-2022 take 50 mg by mouth once daily Tramadol Active 50 MG PO DAILY May 28, 2022 12:00am Completed/Discontinued Medications Medication Drug Class(es) Dates Sig (Normalized) Sig (Original) ascorbic acid 500 mg oral tablet (5 sources) Vitamin C Start: 11-25-2021 End: 05-28-2022 take 500 mg by mouth once daily Ascorbic Acid (Vitamin C) Discontinued 500 MG PO DAILY November 25, 2021 1:00am May 28, 2022 1:16pm atorvastatin 40 mg oral tablet (20 sources) HMG-CoA Reductase Inhibitor Start: 11-15-2016 End: 12-02-2016 take 1 tablet by mouth once daily ATORVASTATIN CALCIUM 40 MG TABS One tablet by mouth daily ATORVASTATIN CALCIUM [id number] Bethany Vargas celecoxib 200 mg oral capsule (2 sources) Nonsteroidal Anti-inflammatory Drug Start: 05-28-2022 End: 10-29-2022 take 200 mg by mouth twice daily Celecoxib Discontinued 200 MG PO TWICE A DAY May 28, 2022 12:00am October 29, 2022 2:05pm cholecalciferol 0.025 mg oral capsule (5 sources) Vitamin D Start: 01-19-2018 End: 11-28-2020 take 1000 [IU] by mouth once daily Cholecalciferol (Vitamin D3) Discontinued 1000 UNIT PO daily January 19, 2018 12:00am November 28, 2020 11:00am clopidogrel 75 mg oral tablet (20 sources) P2Y12 Platelet Inhibitor Start: 12-15-2020 End: 08-12-2023 take 75 mg by mouth once daily Clopidogrel Discontinued 75 MG PO DAILY April 05, 2022 3:06pm August 12, 2023 9:28am Start: 12-10-2020 End: 12-15-2020 Clopidogrel (Plavix) 75 mg t ablet Discontinued 75 MG PO DAILY December 10, 2020 1:00am December 15, 2020 12:56pm Take 4 pills on day one then once a day Start: 11-12-2016 End: 03-01-2019 take 75 mg by mouth once daily Clopidogrel Discontinue d 75 MG PO DAILY November 28, 2017 12:48pm March 01, 2019 4:12pm coenzyme q10 200 mg oral capsule (20 sources) Start: 11-15-2016 take 1 tablet by mouth once daily COQ10 200 MG CAPS One tablet by mouth daily COENZYME Q10 [id number] Deborah Gallego RN Start: 11-10-2016 End: 03-01-2019 Coenzyme Q10 Discontinued 2 CAP PO DAILY November 10, 2016 1:00am March 01, 2019 4:11pm hydroCHLOROthiazide 12.5 mg oral tablet (20 sources) Thiazide Diuretic Start: 11-15-2016 End: 01-17-2017 take 1 tablet by mouth once daily HYDROCHLOROTHIAZIDE 12.5 MG TABS One tablet by mouth daily HYDROCHLOROTHIAZIDE [id number] Justo Duque MD 24 hr isosorbide mononitrate 30 mg extended release oral tablet (20 sources) Nitrate Vasodilator Start: 10-29-2022 End: 08-12-2023 take 30 mg by mouth twice daily Isosorbide Mononitrate Discontinued 30 MG PO TWICE A DAY October 29, 2022 2:41pm August 12, 2023 9:28am Start: 10-21-2022 End: 10-29-2022 take 30 mg by mouth once daily Isosorbide Mononitrate Discontinued 30 MG PO DAILY October 21, 2022 1:00am October 29, 2022 2:41pm Start: 01-12-2021 End: 05-29-2021 take 30 mg by mouth once daily Isosorbide Mononitrate Discontinued 30 MG PO DAILY January 12, 2021 9:18am May 29, 2021 2:06pm Start: 12-22-2020 End: 01-12-2021 take 60 mg by mouth once daily Isosorbide Mononitrate Discontinued 60 MG PO DAILY December 22, 2020 12:00am January 12, 2021 9:18am Start: 12-17-2020 End: 12-22-2020 take 30 mg by mouth once daily Isosorbide Mononitrate Discontinued 30 MG PO DAILY December 17, 2020 1:00am December 22, 2020 9:57am Start: 03-14-2017 End: 01-18-2018 take 60 mg by mouth once daily Isosorbide Mononitrate Discontinued 60 MG PO DAILY March 14, 2017 12:00am January 18, 2018 8:02pm Start: 03-01-2017 End: 04-19-2017 take 1 tablet by mouth once daily ISOSORBIDE MONONITRATE ER 60 MG [id number] One tablet by mouth daily ISOSORBIDE MONONITRATE [id number] Justo Duque MD linseed oil 1000 mg oral capsule (20 sources) Start: 11-10-2016 End: 09-27-2019 take 1000 mg by mouth once daily Flaxseed Oil Discontinued 1000 MG PO DAILY November 10, 2016 1:00am September 27, 2019 4:47pm metoprolol tartrate 25 mg oral tablet (20 sources) beta-Adrenergic Saravanan Start: 11-15-2016 End: 12-02-2016 take 1 tablet by mouth once daily METOPROLOL TARTRATE 25 MG TABS One half tablet by mouth daily METOPROLOL TARTRATE [id number] Bethany Vargas nitroglycerin 0.4 mg sublingual tablet (20 sources) Nitrate Vasodilator Start: 01-18-2018 End: 01-19-2018 apply 0.4 mg transdermal route every hour, then apply 1 dose transdermal route every twenty-four hours Nitroglycerin (Nitro-Dur) 0.4 mg/hr patch 24 hour Discontinued 1 PATCH TD Q24H January 18, 2018 12:00am January 19, 2018 3:51pm Start: 05-31-2017 NITRO-DUR 0.4 MG/HR PT24 Apply at night & remove in the morning NITROGLYCERIN [id number] Justo Duque MD Start: 05-31-2017 NITRO-DUR 0.4 MG/HR PT24 Apply at night & remove in the morning NITROGLYCERIN [id number] Justo Duque MD Start: 05-31-2017 NITRO-DUR 0.4 MG/HR PT24 Apply at night & remove in the morning NITROGLYCERIN [id number] Justo Duque MD Start: 11-15-2016 NITROGLYCERIN 0.4 MG SUBL 1 tablet under the tongue every 5 minutes times 3 as needed for chest pain. NITROGLYCERIN [id number] Justo Duque MD Start: 11-12-2016 End: 10-21-2022 Nitroglycerin Discontinued 0 .4 MG SL Q5M 25 November 25, 2021 3:47pm October 21, 2022 10:00am Watchung-3 Fatty Acids (Fish Oil Concentrate) 1,000 mg capsule (5 sources) Start: 01-19-2018 End: 11-28-2020 take 1 capsule by mouth once daily Watchung-3 Fatty Acids (Fish Oil Concentrate) 1,000 mg capsule Discontinued 1000 MG PO daily January 19, 2018 3:55pm November 28, 2020 11:00am Start: 01-19-2018 End: 11-28-2020 take 1 capsule by mouth once daily Watchung-3 Fatty Acids (Fish Oil Concentrate) 1,000 mg capsule Discontinued 1000 MG PO daily January 18, 2018 11:00pm November 28, 2020 10:00am Start: 01-19-2018 End: 11-28-2020 take 1 capsule by mouth once daily Watchung-3 Fatty Acids (Fish Oil Concentrate) 1,000 mg capsule Discontinued 1000 MG PO daily January 19, 2018 12:00am November 28, 2020 11:00am omeprazole 40 mg delayed release oral capsule (20 sources) Proton Pump Inhibitor Start: 01-18-2018 End: 01-19-2018 take 40 mg by mouth once daily Omeprazole Discontinued 40 MG PO daily January 18, 2018 12:00am January 19, 2018 3:52pm Start: 11-15-2016 End: 01-18-2018 take 20 mg by mouth once daily Omeprazole Discontinued 20 MG PO DAILY January 20, 2017 12:00am January 18, 2018 8:02pm Start: 11-15-2016 take 1 tablet by iftikhar th once daily OMEPRAZOLE 40 MG CPDR One tablet by mouth daily OMEPRAZOLE [id number] Gideon Charlton BARK SKINNER Vit-Ferrous Sulfat-Fa (2 sources) Start: 05-28-2022 End: 10-29-2022 take 1 tablet by mouth once daily Vit-Ferrous Sulfat-Fa Discontinued 1 TABLET PO DAILY May 28, 2022 12:00am October 29, 2022 2:05pm Start: 05-28-2022 End: 10-29-2022 take 1 tablet by mouth once daily Vit-Ferrous Sulfat-Fa Discontinued 1 TABLET PO DAILY May 27, 2022 11:00pm October 29, 2022 1:05pm 12 hr ranolazine 500 mg extended release oral tablet (20 sources) Anti-anginal Start: 05-29-2021 End: 11-25-2021 take 1 tablet by mouth twice daily Ranolazine (Ranexa) 500 mg tablet extended release 12 hr Discontinued 500 MG PO TWICE A DAY 60 May 29, 2021 2:41pm November 25, 2021 3:45pm Start: 01-12-2021 End: 05-29-2021 take 1 tablet by mouth once daily Ranolazine (Ranexa) 500 mg tablet extended release 12 hr Discontinued 500 MG PO DAILY January 12, 2021 9:06am May 29, 2021 2:07pm Start: 01-12-2021 End: 01-12-2021 take 1 tablet by mouth every twelve hours Ranolazine (Ranexa) 500 mg tablet extended release 12 hr Discontinued 500 MG PO ONCE January 12, 2021 8:35am January 12, 2021 9:07am Start: 12-22-2020 End: 01-12-2021 take 1 tablet by mouth twice daily Ranolazine (Ranexa) 500 mg tablet extended release 12 hr Discontinued 500 MG PO TWICE A DAY 60 December 22, 2020 12:00am January 12, 2021 8:36am Start: 01-18-2018 End: 01-19-2018 take 1 tablet by mouth every twelve hours Ranolazine (Ranexa) 500 mg tablet extended release 12 hr Discontinued 500 MG PO Q12H January 18, 2018 12:00am January 19, 2018 3:51pm Start: 04-19-2017 take 1 tablet by iftikhar th twice daily RANEXA 500 MG [id number] One tablet by mouth twice daily RANOLAZINE [id number] Justo Duque MD Start: 04-19-2017 take 1 tablet by iftikhar th twice daily RANEXA 500 MG [id number] One tablet by mouth twice daily RANOLAZINE [id number] Justo Duque MD simvastatin 20 mg oral tablet (20 sources) HMG-CoA Reductase Inhibitor Start: 08-29-2020 End: 05-29-2021 take 20 mg by mouth at bedtime Simvastatin Discontinued 20 MG PO AT BEDTIME September 23, 2020 1:04pm January 12, 2021 8:36am Start: 03-01-2019 End: 08-29-2020 take 20 mg by mouth at bedtime Simvastatin Discontinue d 20 MG PO AT BEDTIME September 27, 2019 4:48pm August 29, 2020 12:52pm Start: 06-02-2018 End: 03-01-2019 take 40 mg by mouth at bedtime Simvastatin Discontinue d 40 MG PO AT BEDTIME June 02, 2018 12:00am March 01, 2019 4:11pm Start: 01-20-2017 End: 06-02-2018 take 40 mg by mouth at bedtime Simvastatin Discontinue d 40 MG PO AT BEDTIME June 01, 2018 10:55am June 02, 2018 10:59am Start: 12-13-2016 take 0.5 tablet by m outh once daily SIMVASTATIN 40 MG TABS 1/2 tablet by mouth every night SIMVASTATIN [id number] Justo Duque MD Start: 12-13-2016 take 1 tablet by iftikhar th once daily SIMVASTATIN 40 MG TABS One tablet by mouth every night SIMVASTATIN [id number] Justo Duque MD Start: 12-13-2016 take 1 tablet by iftikhar th once daily ZOCOR 20 MG TABS One tablet by mouth every night SIMVASTATIN [id number] Rebekah E Michael DANIEL vitamin b6 100 mg oral tablet (20 sources) Start: 11-26-2016 take 1 tablet by mouth once daily VITAMIN B-6 100 MG TABS One tablet by mouth daily PYRIDOXINE HCL [id number] Deborah Gallego RN Start: 11-10-2016 End: 03-01-2019 take 100 mg by mouth once daily Pyridoxine (Vitamin B6) Discontinued 100 MG PO DAILY November 10, 2016 1:00am March 01, 2019 4:11pm vitamin e 400 unt oral capsule (20 sources) Start: 11-15-2016 take 1 tablet by mouth once daily VITAMIN E 400 UNIT CAPS One tablet by mouth daily VITAMIN E [id number] Deborah Gallego RN Start: 11-10-2016 take 400 [IU] by iftikhar th once daily Vitamin E (Dl, Acetate) Active 400 UNITS PO DAILY November 10, 2016 1:00am zinc gluconate 50 mg oral tablet (5 sources) Start: 11-25-2021 End: 05-28-2022 take 50 mg by mouth once daily Zinc Gluconate Discontinued 50 MG PO DAILY November 25, 2021 1:00am May 28, 2022 1:18pm Problems Active Problems Problem Classification Problem Date Documented Da te Episodic/Chronic Acute myocardial infarction (20 sources) Non-ST elevation (NSTEMI) myocardial infarction; Translations: [Acute subendocardial infarction] Onset: 11-15-2016 12-02-2016 Chronic Coronary atherosclerosis and other heart disease (20 sources) Coronary atherosclerosis; Translations: [Atherosclerotic heart disease of [place] coronary artery without angina pectoris] Onset: 11-15-2016 03-14-2017 Chronic Coronary atherosclerosis and other heart disease (9 sources) Presence of coronary angioplasty implant and graft; Translations: [Stented coronary artery] Onset: 04-21-2017 Episodic Disorders of lipid metabolism (20 sources) Hyperlipidemia; Translations: [Mixed hyperlipidemia] Onset: 11-15-2016 11-15-2016 Chronic Essential hypertension (20 sources) Hypertensive disorder; Translations: [Essential (primary) hypertension] Onset: 11-15-2016 11-15-2016 Chronic External Injury - Adverse effects of medical care (1 source) Surgical operation with implant of artificial internal device as the cause of abnormal reaction of the patient, or of later complication, without mention of misadventure at the time of the procedure; Translations: [SURG IMPL ART INTL DEV A] Onset: 02-23-2017 Heart valve disorders (7 sources) Heart murmur; Translations: [Cardiac murmur, unspecified] Episodic Nonspecific chest pain (18 sources) Chest pain; Translations: [Chest pain, unspecified] Onset: 02-23-2017 05-02-2017 Episodic Other nutritional; endocrine; and metabolic disorders (5 sources) Obesity; Translations: [Obesity, unspecified] 12-11-2020 Chronic Other nutritional; endocrine; and metabolic disorders (1 source) Obesity, unspecified; Translations: [Obesity, unspecified] Onset: 08-30-2024 Chronic Other screening for suspected conditions (not mental disorders or infectious disease) (5 sources) Cardiovascular stress test abnormal; Translations: [Abnormal result of other cardiovascular function study] 12-11-2020 Episodic Residual codes; unclassified (5 sources) Tobacco user; Translations: [Tobacco use] 12-11-2020 Episodic Substance-related disorders (20 sources) Tobacco dependence syndrome; Translations: [Nicotine dependence, unspecified, uncomplicated] Onset: 11-15-2016 11-15-2016 Chronic Unclassified (20 sources) Body mass index (BMI) 35.0-35.9, adult; Translations: [Body mass index (BMI) 35.0-35.9, adult] Onset: 12-02-2016 12-02-2016 Chronic Unclassified (20 sources) Placement of stent in coronary artery ; Translations: [Presence of coronary angioplasty implant and graft] Onset: 11-15-2016 03-14-2017 Unclassified (11 sources) Long-term drug therapy; 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] Onset: 11-15-2016 11-15-2016 Unclassified (1 source) Stenosis of coronary artery stent, initial encounter; Translations: [STENOSIS CORONARY ARTERY] Onset: 02-23-2017 Unclassified (1 source) Patient's noncompliance with other medical treatment and regimen due to unspecified reason; Translations: [Patient's noncompliance with other medical treatment and regimen due to unspecified reason] Onset: 08-30-2024 Past or Other Problems Problem Classification Problem Date Documented Date Episodic/Chronic Conditions associated with dizziness or vertigo (17 sources) Dizziness and giddiness; Translations: [Dizziness and giddiness] Onset: 03-16-2017 03-16-2017 Episodic Other aftercare (12 sources) Other [facility] (current) drug therapy; Translations: [Other [facility] (current) drug therapy] Onset: 11-15-2016 11-15-2016 Episodic Residual codes; unclassified (5 sources) History of cardiac catheterization; Translations: [Other specified postprocedural states] Onset: 02-07-2017 01-18-2018 Episodic Syncope (1 source) Syncope and collapse; Translations: [Syncope and collapse] Onset: 2024 Episodic Unclassified (17 sources) Percutaneous transluminal coronary angioplasty ; Translations: [Presence of coronary angioplasty implant and graft] Onset: 01-28-2017 01-28-2017 Results Test Name Value Interpretation Reference Range Facility Comprehensive Metabolic Prof [facility] 09-21-2024 Albumin [Mass/Vol] 3.5 g/dL Normal 3.2-5.0 [facility] Comment on above: Performed By: #### L 500.4050, L500.4100 #### [facility] [address] [place], [address] Albumin/Globulin [Mass ratio] 0.8 {ratio} Low 0.9-2.4 [facility] Comment on above: Performed By: #### L [id number], L500.4100 #### [facility] [address] [place], [address] ALK P 45 U/L Normal 45-117 [facility] Comment on above: Performed By: #### L 500.4050, L500.4100 #### [facility] [address] [place], [address] ALT [Catalytic activity/Vol] 37 U/L Normal 16-61 [facility] Comment on above: Performed By: #### L 500.4050, L500.4100 #### [facility] [address] [place], [address] AST [Catalytic activity/Vol] 17 U/L Normal 15-37 [facility] Comment on above: Performed By: #### L 500.4050, L500.4100 #### [facility] [address] [place], [address] Bilirubin [Mass/Vol] 0.50 mg/dL Normal 0.20-1.00 [facility] Comment on above: Result Comment: For patients on eltrombopag therapy, use of Dimension [place] TBIL is not recommended. Performed By: #### L 500.4050, L500.4100 #### [facility] [address] [place], [address] BUN/CRE 19.8 RATIO Normal 10-20 [facility] Comment on above: Performed By: #### L 500.4050, [id number] #### [facility] [address] [place], [address] CA,Total 9.4 mg/dL Normal 8.5-10.1 [facility] Comment on above: Performed By: #### L 500.4050, [id number] #### [facility] [address] [place], [address] Chloride [Moles/Vol] 104 mmol/L Normal 98-107 [facility] Comment on above: Performed By: #### L 500.4050, [id number] #### [facility] [address] [place], [address] CO2 [Moles/Vol] 31.0 mmol/L Normal 21.0-32.0 [facility] Comment on above: Performed By: #### L 500.4050, L500.4100 #### [facility] [address] [place], [address] Creatinine [Mass/Vol] 1.01 mg/dL Normal 0.70-1.30 [facility] Comment on above: Result Comment: The validity of the calculated GFR GFRAA in patients over 70 years has not been determined. Clinical correlation is essential. Performed By: #### L 500.4050, L500.4100 #### [facility] [address] [place], [address] EST GFR - AA 97 mL/min Normal >60 [facility] Comment on above: Result Comment: Afri can Portuguese GFR Calc Performed By: #### L 500.4050, [id number] #### [facility] [address] [place], [address] GAP 3 Low 5-15 [facility] Comment on above: Performed By: #### L 500.4050, [id number] #### [facility] [address] [place], [address] GFR/1.73 sq M.predicted among non-blacks MDRD (S/P/Bld) [Vol rate/Area] 80 mL/min/{1.73_m2} Normal >60 [facility] Comment on above: Result Comment: Non- GFR Calc Performed By: #### L 500.4050, L500.4100 #### [facility] [address] [place], [address] Globulin (S) [Mass/Vol] 4.3 g/dL High 2.2-4.2 [facility] Comment on above: Performed By: #### L 500.4050, L500.4100 #### [facility] [address] [place], [address] Glucose [Mass/Vol] 105 mg/dL Normal 74-106 [facility] Comment on above: Result Comment: Fast ing Glucose result from 100 to 125 mg/dL suggests IMPAIRED HOMEOSTASIS per A.D.A. criteria. Performed By: #### L 500.4050, L500.4100 #### [facility] [address] [place], [address] Potassium [Moles/Vol] 4.1 mmol/L Normal 3.5-5.1 [facility] Comment on above: Performed By: #### L 500.4050, [id number] #### [facility] [address] [place], [address] Sodium [Moles/Vol] 138 mmol/L Normal 136-145 [facility] Comment on above: Performed By: #### L 500.4050, [id number] #### [facility] [address] [place], [address] T PROT 7.8 g/dL Normal 6.4-8.2 [facility] Comment on above: Performed By: #### L 500.4050, [id number] #### [facility] [address] [place], [address] Urea nitrogen [Mass/Vol] 20 mg/dL High - [facility] Comment on above: Performed By: #### L 500.4050, [id number] #### [facility] [address] [place], [address] Lipid Profileon 09-21-2024 Cholesterol [Mass/Vol] 164 mg/dL Normal 200 [facility] Comment on above: Result Comment: <200 mg/dL Desirable 200-240 mg/dL Borderline >240 mg/dL High Risk Performed By: #### L 500.4050, L500.4100 #### [facility] [address] [place], [address] Cholesterol in HDL [Mass/Vol] 64 mg/dL Normal [facility] Comment on above: Result Comment: The drugs N-Acetylcysteine and Metamizole may falsely depress this assay. Reference Range HDL <40 mg/dL Low HDL Cholesterol HDL >or= 60 mg/dL High HDL Cholesterol Performed By: #### L 500.4050, L500.4100 #### [facility] [address] [place], [address] Cholesterol in LDL [Mass/Vol] 84 mg/dL Normal 0-130 [facility] Comment on above: Performed By: #### L 500.4050, L500.4100 #### [facility] [address] [place], [address] Cholesterol in VLDL [Mass/Vol] 16 mg/dL Normal 5-40 [facility] Comment on above: Performed By: #### L 500.4050, L500.4100 #### [facility] [address] [place], [address] Triglyceride [Mass/Vol] 81 mg/dL Normal [facility] Comment on above: Result Comment: The drugs N-Acetylcysteine and Metamizole may falsely depress this assay. Serum Triglycerides Reference Interval Normal <150 mg/dL Borderline high 150 - 199 mg/dL High 200 - 499 mg/dL Very High > or = 500 mg/dL Performed By: #### L 500.4050, L500.4100 #### [facility] [address] [place], [address] Office Visit Reporton 2023 Office Visit Report [facility] [address] [place] [address] OFFICE VISIT Date of Service: 09/21/24 MR#: [id number] Acct: [id number] Patient: TOBI EVANS Rep #: [id number] : 1965 Provider: Dr. Naomy Diaz MD Age/Sex: 59/M Location: [facility] Status: Signed Intake Vital Signs 08/30/24 08:53 09/21/24 11:26 Height 5 ft 10 in Weight: 269 lb BMI 38.5 BP 158/94 H 137/79 H Blood Pressure Location Lt brachial Rt brachial Position Sitting Sitting Respiration 16 16 Pulse 50 L 50 L Pulse Source NIBP NIBP Comment Left brachial: 156/84 HR: 52 Intake Visit Reasons: 2 WK FU Chief Complaint: Routine f/u Allergies atorvastatin Adverse Reaction (Verified 08/30/24 15:01) Pt can't recall Nursing Note Patient presents today for BP check follow up. BP noted at 156/84 HR:52 in the left brachial initially. Second BP checked in right brachial was 137/79 HR: 50. Patient stated that he had noticed some bilateral flank and anterior abdominal pains that have started since taking the Hydrochlorothiazide that have been really noticeable. Will consult with clinical team for further instruction. 11/08/24 1126 Date Naomy Diaz MD Cosigner Signature: Date (if applicable) CC: Normal [facility] Cardiology Visit Reporton Cardiology Visit Report [facility] [address] [place] [address]. [address] [place] [address] OFFICE VISIT Date of Service: 08/30/24 MR#: [id number] Acct: [id number] Name: TOBI EVANS Rep #: [id number] : 1965 Provider: Dr. Naomy Diaz MD Age/Sex: 59/M Location: [facility] Status: Signed HPI HPI History of Present Illness Details: This gentleman with history of coronary artery disease status post MANUEL to the RCA in 2020 and is here for follow-up visit. Denies any complaints. No chest pains. No shortness of breath. No palpitations. No orthopnea or PND. No ankle edema. Rare lightheadedness. No syncope or presyncope. Patient has only been taking his losartan 25 mg daily rather than 25 mg twice daily. Intake Vital Signs 03/28/24 09:14 08/30/24 08:53 Height 5 ft 10 in 5 ft 10 in Weight: 255 lb 269 lb BMI 36.6 38.5 BP 125/76 H 158/94 H Blood Pressure Location Lt brachial Lt brachial Position Sitting Sitting Respiration 16 16 Pulse 50 L 50 L Pulse Source Monitor NIBP Intake Visit Reasons: 6 M FU Osteopathy Doctor Required: No Accompanied by: Self Is patient in pain?: Yes Allergies atorvastatin Adverse Reaction (Verified 08/30/24 15:01) Pt can't recall Medications ???Medication ???Instructions ???Recorded ???Confirmed ???Type vitamin E (dl, acetate) 180 mg 400 units PO DAILY 11/10/16 08/30/24 History (400 unit) capsule nitroglycerin 0.4 mg sublingual 0.4 mg sublingual Q5M PRN 10/21/22 08/30/24 Rx tablet Cardiac/Chest Pain #25 tabs icosapent ethyl 1 gram capsule 2 g (2 x 1 gram) PO BID #360 caps 02/03/24 08/30/24 Rx (Vascepa) aspirin 81 mg tablet,delayed 81 mg PO DAILY 03/28/24 08/30/24 History release losartan 25 mg tablet 25 mg PO BID #180 tabs 05/24/24 08/30/24 Rx simvastatin 20 mg tablet 20 mg PO QHS #90 tabs 08/30/24 08/30/24 Rx turmeric PO DAILY 08/30/24 08/30/24 History Ejection fraction %: 65 Have you fallen in the past year?: Yes (fall due to dog; no major injuries) [facility] Medical History Abnormal stress test Atherosclerotic heart disease cabazon coronary artery w/angina pectoris Cardiac murmur Chest pain Essential hypertension Hypercholesterolemia Hypertension Non-STEMI (non-ST elevated myocardial infarction) Obesity Presence of stent in coronary artery ( 12/12/20) Pure hypercholesterolemia Surgical History History of left heart catheterization ( 02/23/17) History of right knee surgery Presence of coronary angioplasty implant and graft ( 12/12/20) S/P coronary artery stent placement ( 01/21/17) Status post right knee replacement Family History Mother CVA (cerebral vascular accident) Father CAD (coronary artery disease) Social History Smoking Status: Former smoker how long ago did patient quit smokin years alcohol intake: current alcohol intake frequency: a few times a week Alcohol type: beer and hard liquor substance use type: does not use caffeine: Yes Type: tea Number of servings: 2 what type of physical activity do you participate in: walking frequency: 1-2 times per week ROS Const Const: Negative for fatigue, weakness, headache(s) or weight gain ENT ENT: Positive for dizziness; Negative for headache(s), Nosebleed/epistaxis or balance problems Cardio Chest Pain: Yes (occasional aches) Palpitations: No Edema: None Muscle aches with walking: None Resp Respiratory: Positive for SOB with activity (w/ exertion); Negative for SOB at rest or SOB orthopnea SOB lying down GI GI: Negative nausea, vomiting or heartburn Musc Musc: Negative for muscle aches/ myalgia, muscle weakness, joint pain or balance problems Neuro Neuro: Positive for dizziness; Negative for lightheadedness, near syncope, syncope, headache(s) or weakness Endo Endo: Negative for fatigue Cardiology Exam Const Appearance: comfortable and no acute distress Nutritional Appearance: well nourished Neck Neck: no JVD Chest Auscultation: Bilateral: Clear to Auscultation Cardio Rate: regular rate Rhythm: regular rhythm Heart sounds: S1 normal and S2 normal Soft systolic murmur at base. Neuro General: patient alert, patient awake and patient oriented x3 Extremities Lower Extremity Edema: None: Bilateral Supplemental Info Supplemental Information Echocardiogram 04/18/2024: The left ventricular ejection fraction is 65 %. The left atrium is mildly enlarged. Mild (1+) mitral valve insufficiency. Mildly calcified trileaflet aortic valve. Mild aortic valve stenosis with mild regurgitation. Echocardiogram from 12/22/2021: Interpretation Summary (more content not included)... Normal [facility] Carotid Duplex Ultrasoundon 04-18-2024 Carotid Duplex Ultrasound [facility] [place] [address] Carotid Duplex Ultrasound 04/18/24 1416 MR#: [id number] Acct: [id number] Name: TOBI EVANS Rep #: [id number] : 1965 59 From: Alexis Delong MD Attending Dr: Dr. Naomy Diaz MD Status: REG CLI Ordering Dr: Naomy Diaz MD Date: 04/18/24 Location: [facility] Sex: M C Admitted: Reason For Study: Lightheadedness Rt. Velocities/BP Lt. Velocities/BP Prox CCA 85.5/10.6 cm/sec. Prox CCA 87.9/14.2 cm/sec. Mid CCA 63.9/16.6 cm/sec. Mid CCA 64.6/15.5 cm/sec. Dist CCA 61.0/18.5 cm/sec. Dist CCA 75.6/17.9 cm/sec. Prox ICA 44.1/18.0 cm/sec. Prox ICA 66.7/21.4 cm/sec. Mid ICA 53.5/20.9 cm/sec. Mid ICA 43.8/16.1 cm/sec. Dist ICA 68.4/19.3 cm/sec. Dist ICA 62.1/20.2 cm/sec. Rt. ICA/CCA = 1.07. Lt. ICA/CCA = 1.03. Prox ECA 125.3/17.5 cm/sec. Prox ECA 107.0/10.2 cm/sec. Rt. Vert. 58.9/22.6 cm/sec. Lt. Vert. 37.4/8.3 cm/sec. Right Extracranial There is intimal thickening but no significant atherosclerotic plaque noted in the right common carotid artery. There is heterogeneous, irregular atherosclerotic plaque noted in the right internal carotid artery. There is intimal thickening but no significant atherosclerotic plaque noted in the right external carotid artery. Antegrade flow is noted in the right vertebral artery. Left Extracranial There is intimal thickening but no significant atherosclerotic plaque noted in the left common carotid artery. There is heterogeneous, irregular atherosclerotic plaque noted in the left internal carotid artery. There is intimal thickening but no significant atherosclerotic plaque noted in the left external carotid artery. Antegrade flow is noted in the left vertebral artery. Procedure Carotid Duplex [id number]. This is a Carotid Duplex examination using B-mode, color flow and specral Doppler. Exam performed in department. VL/Carotid Duplex Ultrasound Interpretation Summary Mild (<50%) stenosis right extracranial internal carotid. Mild (<50%) stenosis left extracranial internal carotid. Patent and antegrade vertebrals bilaterally. Ordering Physician: Naomy Diaz Referring Physician: Rosmery Christie Performed By: Rosa Raines RVT and Student 04/18/241753 Date Alexis Delong MD CC: Dr. Naomy Diaz MD; Dr. Rosmery Christie DO Date Dictated: 04/18/24 1416 Date Transcribed: 04/18/241753 Assistant Bookkeeper: Signed Normal [facility] Echo Complete W/ Contraston 04-18-2024 Echo Complete W/ Contrast [facility] [address] [place] [address] Echo Complete W/ Contrast 04/18/24 1450 MR#: [id number] Acct: [id number] Name: TOBI EVANS Rep #: [id number] : 1965 59 From: Naomy Diaz MD Attending Dr: Dr. Naomy Diaz MD Status: REG CLI Ordering Dr: Naomy Diaz MD Date: 04/18/24 Location: [facility] Sex: M C Admitted: Reason For Study: Dizziness Procedure This was a 2D Doppler, Color Flow transthoracic echocardiogram. Contrast injection was performed. Exam performed in department. Left Ventricle Mild concentric left ventricular hypertrophy. Normal LV size. The left ventricular ejection fraction is 65 %. Normal diastology for age. Right Ventricle Normal right ventricle. Atria The left atrium is mildly enlarged. Normal right atrium. Mitral Valve Mild (1+) mitral valve insufficiency. Tricuspid Valve Trivial tricuspid valve insufficiency. Unable to estimate RV systolic pressure due to insufficient tricuspid regurgitant envelope. Aortic Valve Mildly calcified trileaflet aortic valve. Mild aortic valve stenosis with mild regurgitation. Pulmonic Valve The pulmonic valve is not well visualized. Great Vessels Normal aortic root. Pericardium/Pleural No pericardial effusion. Medication Diluted definity 1.5ml given slow IV push to enhance endocardial definition. MMode/2D Measurements Calculations LVIDd: 4.8 cm IVSd: 1.3 cm LVOT diam: 2.1 cm LVIDs: 3.6 cm LVPWd: 1.2 cm RVDd: 3.5 cm FS: 25.5 % LVOT area: 3.5 cm2 Ao root diam: 3.5 cm LAV(MOD-bp): 59.3 ml LVAd ap4: 30.4 cm2 LAV(MOD-bp) Indexed: 25.6 ml/m2 LVLd ap4: 8.5 cm LAV(MOD-sp2): 45.8 ml EDV(MOD-sp4): 89.0 ml LAV(MOD-sp4): 69.7 ml EDV(sp4-el): 92.3 ml LVAs ap4: 14.7 cm2 LVLs ap4: 6.5 cm ESV(MOD-sp4): 28.0 ml ESV(sp4-el): 28.0 ml EF(MOD-sp4): 68.5 % EF(sp4-el): 69.6 % SV(MOD-sp4): 61.0 ml SV(sp4-el): 64.3 ml LA A4 area: 21.5 cm2 LA dimension(2D): 4.4 cm RA A4 area: 9.6 cm2 Time Measurements MV dec time: 0.33 sec Doppler Measurements Calculations MV E max stevie: 76.4 cm/sec Lat Peak E' Stevie: 10.0 cm/sec Med Peak E' Stevie: 6.6 cm/sec MV A max stevie: 95.6 cm/sec E/E' lat: 7.6 E/E' med: 11.5 MV E/A: 0.80 MV dec slope: 232.8 cm/sec2 Ao V2 max: 224.3 cm/sec LV V1 max: 138.0 cm/sec Ao max P.2 mmHg LV V1 max P.6 mmHg Ao V2 mean: 150.7 cm/sec LV V1 mean P.7 mmHg Ao mean P.3 mmHg LV V1 mean: 91.0 cm/sec Ao V2 VTI: 48.5 cm LV V1 VTI: 28.7 cm AV (velocity ratio): 0.59 BRANDON(I,D): 2.1 cm2 BRANDON(V,D): 2.1 cm2 SV(LVOT): 99.5 ml PA V2 max: 107.6 cm/sec ECHO/Echo Complete W/ Contrast Interpretation Summary The left ventricular ejection fraction is 65 %. The left atrium is mildly enlarged. Mild (1+) mitral valve insufficiency. Mildly calcified trileaflet aortic valve. Mild aortic valve stenosis with mild regurgitation. Ordering Physician: Naomy Diaz Referring Physician: Rosmery Christie Performed By: Angelina Charlton, PAOLA, RVT 04/19/24 0856 Date Naomy Diaz MD CC: Dr. Naomy Diaz MD; Dr. Rosmery Christie, Date Dictated: 04/18/24 1450 Date Transcribed: 04/19/24 0856 Assistant Bookkeeper: Signed Normal [facility] Cardiology Visit Reporton Cardiology Visit Report [facility] [address] [place] [address] OFFICE VISIT Date of Service: 03/28/24 MR#: [id number] Acct: [id number] Name: TOBI EVANS Rep #: [id number] : 1965 Provider: Dr. Naomy Diaz MD Age/Sex: 59/M Location: [facility] Status: Signed [facility] History of Present Illness Details: This gentleman has history of coronary artery disease with NSTEMI in the past. He has had percutaneous intervention done to his RCA and left circumflex coronary arteries. Here for follow-up visit today. Patient is not particularly compliant with his medications. He only started taking his simvastatin about a month ago. Not taking aspirin at present. Denies any chest pains. No shortness of breath. No orthopnea or PND. No ankle edema. Intake Vital Signs 08/12/23 09:27 03/28/24 09:14 Height 5 ft 10 in 5 ft 10 in Weight: 265 lb 255 lb BMI 38.0 36.6 BP 161/88 H 125/76 H Blood Pressure Location Lt brachial Lt brachial Position Sitting Sitting Respiration 16 16 Pulse 58 L 50 L Pulse Source Monitor Monitor Intake Visit Reasons: 7 M FU Osteopathy Doctor Required: No Accompanied by: Is patient in pain?: No Allergies atorvastatin Adverse Reaction (Verified 03/28/24 09:16) Pt can't recall Medications ???Medication ???Instructions ???Recorded ???Confirmed ???Type vitamin E (dl, acetate) 180 mg 400 units PO DAILY 11/10/16 03/28/24 History (400 unit) capsule simvastatin 20 mg tablet 20 mg PO QHS 05/29/21 03/28/24 History nitroglycerin 0.4 mg sublingual 0.4 mg sublingual Q5M PRN 10/21/22 03/28/24 Rx tablet Cardiac/Chest Pain #25 tabs losartan 25 mg tablet 25 mg PO BID #180 tabs 08/12/23 03/28/24 Rx icosapent ethyl 1 gram capsule 2 g (2 x 1 gram) PO BID #360 caps 02/03/24 03/28/24 Rx (Vascepa) Ejection fraction %: 65 PFSH Medical History Abnormal stress test Cardiac murmur Pure hypercholesterolemia Essential hypertension Presence of stent in coronary artery ( 12/12/20) Chest pain Atherosclerotic heart disease cabazon coronary artery w/angina pectoris Hypercholesterolemia Hypertension Non-STEMI (non-ST elevated myocardial infarction) Obesity Surgical History Status post right knee replacement Presence of coronary angioplasty implant and graft ( 12/12/20) History of right knee surgery History of left heart catheterization ( 02/23/17) S/P coronary artery stent placement ( 01/21/17) Family History Mother CVA (cerebral vascular accident) Father CAD (coronary artery disease) Social History Smoking Status: Former smoker how long ago did patient quit smokin years alcohol intake: current alcohol intake frequency: a few times a week Alcohol type: beer and hard liquor substance use type: does not use caffeine: Yes Type: tea Number of servings: 2 what type of physical activity do you participate in: walking frequency: 1-2 times per week ROS Const Const: Positive for daytime sleepiness (try); Negative for fatigue, weakness, headache(s), frequent falls, difficulty sleeping or excessive sweating Eyes Eyes: Negative for loss of peripheral vision, transient loss of vision, blurry vision, double vision or tunnel vision ENT ENT: Positive for balance problems; Negative for headache(s), dizziness or Nosebleed/epistaxis Cardio Chest Pain: No Palpitations: No Edema: None Muscle aches with walking: None Resp Respiratory: Positive for SOB with activity, SOB orthopnea SOB lying down and snoring (occ); Negative for SOB at rest, Cough or paroxysmal nocturnal dyspnea GI GI: Negative nausea, vomiting, heartburn or black,tarry stools : Negative for hematuria Musc Musc: Positive for balance problems; Negative for muscle aches/ myalgia, muscle weakness or joint pain Skin Skin: Negative non-healing lesions, rash or unusual bruising Neuro Neuro: Positive for lightheadedness; Negative for dizziness, near syncope, syncope, frequent falls, headache(s), weakness, blurry vision, double vision or lack of coordination [place] Hematologic/Lymphatic: Negative for easy bleeding or easy bruising Endo Endo: Negative for fatigue, excessive sweating or increased thirst/drinking Psych Psych: Negative for anxiety or depression Allergy Allergy/Immunology: Negative for hives and Negative for rash Cardiology Exam Const Appearance: comfortable and no acute distress Nutritional Appearance: well nourished Neck Neck: no JVD Carotids: bruit (Soft right carotid bruit audible) Chest Auscultation: Bilateral: Clear to Auscultation Cardio Rate: regular rate Rhythm: regu (more content not included)... Normal [facility] Basophil percentageOrdered B y: Gideon Charlton on 02-10-2024 Bilirubin [Mass/Vol] 0.60 mg/dL 0.20-1.00 [facility] Comment on above: For patients on eltr ombopag therapy, use of Dimension [place] TBIL is not recommended. Cholesterol [Mass/Vol] 207 mg/dL <200 [facility] Comment on above: <200 mg/dL Desirable 200-240 mg/dL Borderline >240 mg/dL High Risk Protein [Mass/Vol] 7.9 g/dL 6.4-8.2 [facility] Triglyceride [Mass/Vol] 75 mg/dL <199 [facility] Comment on above: The drugs N-Acetylcy steine and Metamizole may falsely depress this assay.Serum Triglycerides Reference Interval Normal <150 mg/dL Borderline high 150 - 199 mg/dL High 200 - 499 mg/dL Very High > or = 500 mg/dL Direct bilirubinOrdered By: Gideon Charlton on 02-10-2024 Bilirubin.direct [Mass/Vol] 0.12 mg/dL 0.00-0.30 [facility] - Chemistry and C hemistry - challengeOrdered By: Gideon Charlton on 02-10-2024 ALP [Catalytic activity/Vol] 48 U/L 45-117 [facility] ALT [Catalytic activity/Vol] 25 U/L 16-61 [facility] Cholesterol in HDL [Mass/Vol] 51 mg/dL >40 [facility] Comment on above: The drugs N-Acetylcy steine and Metamizole may falsely depress this assay. Reference Range HDL <40 mg/dL Low HDL Cholesterol HDL >or= 60 mg/dL High HDL Cholesterol Cholesterol in LDL [Mass/Vol] 141 mg/dL 0-130 [facility] Globulin (S) [Mass/Vol] 4.3 g/dL 2.2-4.2 [facility] Lipid Profileon 02-10-2024 Cholesterol [Mass/Vol] 207 mg/dL High 200 [facility] Comment on above: Result Comment: <200 mg/dL Desirable 200-240 mg/dL Borderline >240 mg/dL High Risk Performed By: #### L 500.3310, L500.3400 #### [facility] [address] [place], [place], [id number] Cholesterol in HDL [Mass/Vol] 51 mg/dL Normal [facility] Comment on above: Result Comment: The drugs N-Acetylcysteine and Metamizole may falsely depress this assay. Reference Range HDL <40 mg/dL Low HDL Cholesterol HDL >or= 60 mg/dL High HDL Cholesterol Performed By: #### L 500.4100, L500.3400 #### [facility] [address] [place], [address] Cholesterol in LDL [Mass/Vol] 141 mg/dL High 0-130 [facility] Comment on above: Performed By: #### L 500.4100, L500.3400 #### [facility] [address] [place], [address] Cholesterol in VLDL [Mass/Vol] 15 mg/dL Normal 5-40 [facility] Comment on above: Performed By: #### L 500.4100, L500.3400 #### [facility] [address] [place], [address] Triglyceride [Mass/Vol] 75 mg/dL Normal [facility] Comment on above: Result Comment: The drugs N-Acetylcysteine and Metamizole may falsely depress this assay. Serum Triglycerides Reference Interval Normal <150 mg/dL Borderline high 150 - 199 mg/dL High 200 - 499 mg/dL Very High > or = 500 mg/dL Performed By: #### L 500.4100, L500.3400 #### [facility] [address] [place], [address] Liver Profileon 02-10-2024 Albumin [Mass/Vol] 3.6 g/dL Normal 3.2-5.0 [facility] Comment on above: Performed By: #### L 500.4100, L500.3400 #### [facility] [address] [place], [address] ALK P 48 U/L Normal 45-117 [facility] Comment on above: Performed By: #### L 500.4100, L500.3400 #### [facility] [address] [place], [address] ALT [Catalytic activity/Vol] 25 U/L Normal 16-61 [facility] Comment on above: Performed By: #### L 500.4100, L500.3400 #### [facility] [address] [place], [address] AST [Catalytic activity/Vol] 21 U/L Normal 15-37 [facility] Comment on above: Performed By: #### L 500.4100, L500.3400 #### [facility] [address] [place], [address] Bilirubin [Mass/Vol] 0.60 mg/dL Normal 0.20-1.00 [facility] Comment on above: Result Comment: For patients on eltrombopag therapy, use of Dimension [place] TBIL is not recommended. Performed By: #### L 500.4100, L500.3400 #### [facility] [address] [place], [address] Bilirubin.direct [Mass/Vol] 0.12 mg/dL Normal 0.00-0.30 [facility] Comment on above: Performed By: #### L 500.4100, L500.3400 #### [facility] [address] [place], [address] Globulin (S) [Mass/Vol] 4.3 g/dL High 2.2-4.2 [facility] Comment on above: Performed By: #### L 500.4100, L500.3400 #### [facility] [address] [place], [address] T PROT 7.9 g/dL Normal 6.4-8.2 [facility] Comment on above: Performed By: #### L 500.4100, L500.3400 #### [facility] [address] [place], [address] No Panel InformationOrdered By: Gideon Charlton on 02-10-2024 VLDL Cholesterol 15 mg/dL 5-40 [facility] Thin prep Papanicolaou smear with manual screeningOrdered By: Gideon Charlton on 02-10-2024 Thin prep Papanicolaou smear with manual screening 3.6 g/dL 3.2-5.0 [facility] Thin prep Papanicolaou smear with manual screening 21 U/L 15-37 [facility] [address] KNEE W/O CONTRAST RIGHTon 04-21-2022 CT KNEE W/O CONTRAST RIGHT ORIGINAL EXAMINATION: CT OF THE RIGHT KNEE WITHOUT CONTRAST 04/21/2022 10:30 am TECHNIQUE: CT of the right knee was performed without the administration of intravenous contrast. Multiplanar reformatted images are provided for review. Automated exposure control, iterative reconstruction, and/or weight based adjustment of the mA/kV was utilized to reduce the radiation dose to as low as reasonably achievable. COMPARISON: None. HISTORY ORDERING SYSTEM PROVIDED HISTORY: Reason for Exam: M17.11 UNILATERAL PRIMARY OSTEOARTHRITIS, RIGHT KNEE FINDINGS: No acute fracture or dislocation is evident. Osseous mineralization is within normal limits. No visible aggressive osseous lesions. Moderate degenerative changes are present of the medial femorotibial compartment with joint space narrowing, marginal osteophyte formation, and subchondral sclerosis. There is also mild chondrocalcinosis present. Suspect meniscal ossicle near posterior root of medial meniscus. Mild degenerative changes are present of the lateral femorotibial compartment with joint space narrowing and marginal osteophyte formation. [id number] joint space narrowing with marginal osteophytes and tiny subchondral cysts are present of the patellofemoral compartment. Small volume knee joint effusion. Large intracapsular osteochondral body of the intercondylar notch measuring up to 2.2 cm AP dimension. Small volume Fields's cyst. Metallic surgical device noted at the anterior aspect of the proximal tibial metaphysis. Provided images of the right hip and right hemipelvis demonstrate mild hip degenerative change. No visible aggressive osseous lesions. Small bone island of the right femoral head. Visible intrapelvic contents exhibit no acute abnormalities. Provided images of the ankle exhibit no acute osseous abnormalities or aggressive osseous lesions. Vascular calcifications. IMPRESSION: 1. No acute osseous abnormalities or aggressive osseous lesions. 2. Tricompartmental degenerative change, greatest of the medial femorotibial compartment. Chondrocalcinosis of the medial femorotibial compartment can be seen with osteoarthrosis or CPPD arthropathy. 3. Small volume joint effusion with large intracapsular osteochondral body of the intercondylar notch. Interpreted by: Saman Davis DO Preliminary Report By: Saman Davis DO Electronically signed By Saman Davis DO Dictated Date: 04/21/2022 11:05:06 AM Prelim Date: 04/21/2022 11:11:27 AM Sign Date: 04/21/2022 11:11:27 AM Ordering Provider: CANDACE DONNELLY [facility] ([place]) Absolute lymphocyte counton 04-09-2022 Lymphocytes Auto (Unsp spec) [#/Vol] 1.34 10*3/uL 0.83-4.51 [facility] Work Phone: Basophil percentageon 2021 Basophils/100 WBC (Bld) 0.5 % 0-1 [facility] Work Phone: Bilirubin [Mass/Vol] 0.30 mg/dL 0.20-1.00 [facility] Work Phone: [phone] Comment on above: For patients on eltr ombopag therapy, use of Dimension [place] TBIL is not recommended. Chloride [Moles/Vol] 108 mmol/L 98-107 [facility] Work Phone: Eosinophils/100 WBC (Bld) 3.1 % 0-5 [facility] Work Phone: Glucose [Mass/Vol] 110 mg/dL 74-106 [facility] Work Phone: Comment on above: Fasting Glucose resu lt from 100 to 125 mg/dL suggests IMPAIRED HOMEOSTASIS per A.D.A. criteria. Neutrophils (Bld) [#/Vol] 3.5 10*3/uL 2.0-7.7 [facility] Work Phone: Neutrophils/100 WBC (Bld) 63.8 % 47-70 [facility] Work Phone: Potassium [Moles/Vol] 3.8 mmol/L 3.5-5.1 [facility] Work Phone: Protein [Mass/Vol] 7.4 g/dL 6.4-8.2 [facility] Work Phone: [phone] Sodium [Moles/Vol] 139 mmol/L 136-145 [facility] Work Phone: [phone] WBC (Bld) [#/Vol] 5.5 10*3/uL 4.4-11.0 [facility] Work Phone: Blood erythrocytes count (nu mber/volume)on 04-09-2022 RBC (Bld) [#/Vol] 4.28 10*6/uL 4.6-6.2 [facility] Work [facility]: Blood hemoglobin measurement (mass/volume)on 04-09-2022 Hemoglobin (Bld) [Mass/Vol] 13.1 g/dL 13.0-16.5 [facility] Work Phone: Blood lymphocytes/100 leukoc yteson 04-09-2022 Lymphocytes/100 WBC (Bld) 24.4 % 19-41 [facility] Work Phone: Blood monocytes/100 leukocyt eson 04-09-2022 Monocytes/100 WBC (Bld) 8.0 % 0-10 [facility] Work Phone: Blood platelet mean volumeon 04-09-2022 Platelet mean volume (Bld) [Entitic vol] 10.8 fL 6.2-12.0 [facility] Work Phone: Determination of erythrocyte mean corpuscular volume (MCV)on 04-09-2022 MCV (RBC) [Entitic vol] 92.8 fL 80-94 [facility] Work Phone: Hematocrit Auto (Bld) [Volum e fraction]on 04-09-2022 Hematocrit (Bld) [Volume fraction] 39.7 % 40-54 [facility] Work Phone: Laboratory - Chemistry and C hemistry - challengeon 04-09-2022 ALP [Catalytic activity/Vol] 43 U/L 45-117 [facility] Work Phone: ALT [Catalytic activity/Vol] 35 U/L 16-61 [facility] Work Phone: CO2 [Moles/Vol] 25.0 mmol/L 21.0-32.0 [facility] Work Phone: Globulin (S) [Mass/Vol] 4.1 g/dL 2.2-4.2 [facility] Work Phone: Urea nitrogen/Creatinine [Mass ratio] 21.8 mg/mg 10-20 [facility] Work Phone: Laboratory - Hematology and Cell countson 04-09-2022 Erythrocyte distribution width (RBC) [Entitic vol] 44.6 fL 35.1-43.9 [facility] Work Phone: Erythrocyte distribution width (RBC) [Ratio] 13.2 % 11.6-14.6 [facility] Work Phone: Immature granulocytes/100 WBC (Bld) 0.200 % 0.0-0.9 [facility] Work Phone: Comment on above: IG% - Immature Granu locytes (promyelocytes, myelocytes and metamyelocytes) > 1% indicates that a LEFT SHIFT is Present. MCH (RBC) [Entitic mass] 30.6 pg 27.0-32.0 [facility] Work Phone: Nucleated RBC/100 WBC (Bld) [Ratio] 0 % 0-5 [facility] Work Phone: MCHC Auto (RBC) [Mass/Vol]on 04-09-2022 MCHC (RBC) [Mass/Vol] 33.0 g/dL 32-36 [facility] Work Phone: No Panel Informationon 04-09 Estimated GFR (MDRD) Amer 104 mL/min >60 [facility] Work Phone: Comment on above: GFR Calc Estimated GFR (MDRD) Non-Af Amer 86 mL/min >60 [facility] Work Phone: Comment on above: Non- GFR Calc Platelets bldon 04-09-2022 Platelets (Bld) [#/Vol] 238 10*3/uL 150-450 [facility] Work Phone: Serum or plasma albumin vikki urement (mass/volume)on 04-09-2022 Albumin [Mass/Vol] 3.3 g/dL 3.2-5.0 [facility] Work Phone: Serum or plasma albumin/glob ulin mass ratioon 04-09-2022 Albumin/Globulin [Mass ratio] 0.8 {ratio} 0.9-2.4 [facility] Work Phone: Serum or plasma calcium vikki urement (mass/volume)on 04-09-2022 Calcium [Mass/Vol] 9.0 mg/dL 8.5-10.1 [facility] Work Phone: Serum or plasma creatinine m easurement (mass/volume)on 04-09-2022 Creatinine [Mass/Vol] 0.96 mg/dL 0.70-1.30 [facility] Work Phone: Comment on above: The validity of the calculated GFR & GFRAA in patients over 70 years has not been determined. Clinical correlation is essential. Serum or plasma urea nitroge n measurement (mass/volume)on 04-09-2022 Urea nitrogen [Mass/Vol] 21 mg/dL 7-18 [facility] Work Phone: Thin prep Papanicolaou smear with manual screeningon 04-09-2022 Thin prep Papanicolaou smear with manual screening 16 U/L 15-37 [facility] Work Phone: Thin prep Papanicolaou smear with manual screening 6 5-15 [facility] Work Phone: Basophil percentageon 2021 Bilirubin [Mass/Vol] 0.50 mg/dL 0.20-1.00 [facility] Work Phone: Comment on above: For patients on eltr ombopag therapy, use of Dimension [place] TBIL is not recommended. Cholesterol [Mass/Vol] 173 mg/dL <200 [facility] Work Phone: Comment on above: <200 mg/dL Desirable 200-240 mg/dL Borderline >240 mg/dL High Risk Protein [Mass/Vol] 7.6 g/dL 6.4-8.2 [facility] Work Phone: Triglyceride [Mass/Vol] 89 mg/dL [facility] Work Phone: Comment on above: The drugs N-Acetylcy steine and Metamizole may falsely depress this assay.Serum Triglycerides Reference Interval Normal <150 mg/dL Borderline high 150 - 199 mg/dL High 200 - 499 mg/dL Very High > or = 500 mg/dL Direct bilirubinon 2 Bilirubin.direct [Mass/Vol] 0.11 mg/dL 0.00-0.30 [facility] Work Phone: Laboratory - Chemistry and C hemistry - challengeon 12-29-2021 ALP [Catalytic activity/Vol] 47 U/L 45-117 [facility] Work Phone: ALT [Catalytic activity/Vol] 31 U/L 16-61 [facility] Work Phone: Globulin (S) [Mass/Vol] 4.1 g/dL 2.2-4.2 [facility] Work Phone: Serum or plasma albumin vikki urement (mass/volume)on 12-29-2021 Albumin [Mass/Vol] 3.5 g/dL 3.2-5.0 [facility] Work Phone: Serum or plasma cholesterol in HDL measurement (mass/volume)on 12-29-2021 Cholesterol in HDL [Mass/Vol] 69 mg/dL [facility] Work Phone: Comment on above: The drugs N-Acetylcy steine and Metamizole may falsely depress this assay. Reference Range HDL <40 mg/dL Low HDL Cholesterol HDL >or= 60 mg/dL High HDL Cholesterol Serum or plasma cholesterol in VLDL measurement (mass/volume)on 12-29-2021 Cholesterol in VLDL [Mass/Vol] 18 mg/dL 5-40 [facility] Work Phone: Serum or plasma low density lipoprotein (LDL) cholesterol measurement (mass/volume)on 12-29-2021 Cholesterol in LDL [Mass/Vol] 86 mg/dL 0-130 [facility] Work Phone: Thin prep Papanicolaou smear with manual screeningon 12-29-2021 Thin prep Papanicolaou smear with manual screening 12 U/L 15-37 [facility] Work Phone: Laboratory - Microbiology an d Antimicrobial susceptibilityon 09-14-2021 SARS-CoV-2 (COVID-19) RNA JOHN+probe Ql (Unsp spec) Not detected Not Detect [facility] Work Phone: Comment on above: Normal Reference Ran ge: Not DetectedMethod:(RT-PCR) real-time reverse transcriptase PCRLuminex LOIS Instrument*The Food and Drug Administration (FDA) has issued an Emergency Use Authorization (EAU) for the Valensum SARS-CoV-2 Assay for the rapid detection of the virus that causes COVID-19. This test has been validated, but the FDAs independent review of this validation is pending.*Negative results do not preclude infection and should not be used as the sole basis for treatment or patient management. Optimum specimen types and timing for peak viral levels during infections caused by SARS-CoV-2 have not been determined. Collection of multiple specimens from the same patient may be necessary to detect the virus. The possibility of a false negative result should be considered if the patient has clinical presentation or has had recent exposure. No Panel Informationon 09-14 Respiratory Panel (PCR) [facility] Work Phone: ALLIED HEALTHon 10-25-2019 [facility] HNO ID: [id number] Author: Ann-Marie Ascencio) JASMINE Nj Service: Radiology Author Type: Technologist Type: Allied [facility] Filed: 10/25/2019 11:57 AM Note Text: Radiology Service Progress Note DATE OF SERVICE: October 25, 2019 TIME: 11:31 AM PATIENT IDENTITY VERIFICATION COMPLETED USING TWO (2) STANDARD IDENTIFIERS: Name and Date of confirmed by patient verbally and Name and Date of confirmed by identification band. PATIENT GENDER DATA: Male PATIENT RELEVANT IMPLANT DATA REVIEWED: Not Applicable ALLERGIES: Reviewed and unchanged CONTRAST ALLERGY: NO. EXAM: CT -CONTRAST INDUCED NEPHROPATHY RISK FACTORS: Not applicable CREATININE: Creatinine Date Value Ref Range Status 02/15/2017 0.87 0.67 - 1.17 mg/dL Final 02/14/2017 0.87 0.67 - 1.17 mg/dL Final P.O.C.T. RESULTS: POC done: Yes, See Lab Tab October 25, 2019 TREATMENT: N/A PERIPHERAL IV DATA: Ambulatory: A peripheral IV was started in the Right antecubital site with a Angio cath: 22 gauge. RADIOLOGY DEPARTMENT: CT; Exam(s) Completed: CTA Aorta/leg runoff SIGNATURE: JASMINE Glover PATIENT NAME: Tobi Followay DATE: October 25, 2019 TIME: 11:[address] [facility] CT NECK SOFT TISSUE W IVCONo n 10-25-2019 CT NECK SOFT TISSUE W IVCON * * *Final Report* * * DATE OF EXAM: Oct 25 2019 11:33AM [facility] [place] [address]13 - CT NECK SOFT TISSUE W IVCON / PROCEDURE REASON: r sternoclavicual mass, cyst, r22.1 * * * * Physician Interpretation * * * * Examination: CT scan of the soft tissue neck with contrast. CT Contrast: Omnipaque 300 CT Contrast Volume (ml): 100 CT Contrast Route of Administration: Intravenous Dose-Length Product (DLP): 413 mGy*cm. CT Dose Reduction Employed: Automated exposure control (AEC) Clinical indication: Right sternoclavicular mass. Comparison: None. Findings: Postoperative/posttreatment changes: None. No discrete mass underlying the radiopaque marker placed in the suprasternal region. Nasal and oral cavities are unremarkable. Pharyngeal mucosal space is normal. Parotid and submandibular glands are unremarkable. Thyroid gland is homogeneous. Remainder of the fascial spaces of the neck and their contents are normal. There is no lymphadenopathy by size criteria. Imaged intracranial contents are unremarkable. Imaged portions of the lungs are grossly clear. Infraglottic airway is patent. Osseous structures are unremarkable. Minimal mucosal thickening within right maxillary sinus. Skull base and orbits unremarkable. Impression: No lymphadenopathy, mass, or inflammatory change. Assistant Bookkeeper: PSCB Transcribe Date/Time: Oct 25 2019 2:01P Dictated by : CARLOS ALBERTO CORTES MD This examination was interpreted and the report reviewed and electronically signed by: CARLOS ALBERTO CORTES MD on Oct 25 2019 2:06PM EST [id number] [facility] NURSING PROGon 10-25-2019 NURSING PROG HNO ID: [id number] Author: Malia CarbajalRnJoseph Vital RN Service: Radiology Author Type: Registered Nurse Type: Nursing Progress Note Filed: 10/25/2019 11:12 AM Note Text: Radiology Service Progress Note DATE OF SERVICE: October 25, 2019 TIME: 11:11 AM PATIENT IDENTITY VERIFICATION COMPLETED USING TWO (2) STANDARD IDENTIFIERS: Name and Date of confirmed by patient verbally. PATIENT GENDER DATA: Male ALLERGIES: Reviewed and unchanged CONTRAST ALLERGY: NO. IV SITE: Ambulatory: A peripheral IV was started in the Right antecubital site with a Angio cath: 22 gauge. IV SITE APPEARANCE: Clean,Dry and Intact SIGNATURE: Malia Vital RN PATIENT NAME: Tobi Followay DATE: October 25, 2019 TIME: 11:[address] [facility] Lab Report: Lipid Profileon 11-14-2017 Cholesterol 153 mg/dL Invalid Interpretation Code 200 [facility] Work Phone: [phone] HDL Cholesterol 45 mg/dL Invalid Interpretation Code [facility] Work Phone: [phone] LDL Cholesterol 80 mg/dL Invalid Interpretation Code 0-130 [facility] Work Phone: [phone] Triglyceride 141 mg/dL Invalid Interpretation Code [facility] Work Phone: [phone] very low density lipoproteins 28 mg/dL Invalid Interpretation Code 5-40 [facility] Work Phone: [phone] Lab Report: Liver Profileon 11-14-2017 Alanine aminotransferase (ALT) 33 U/L Invalid Interpretation Code 16-61 [facility] Work Phone: [phone] Albumin 3.5 g/dL Invalid Interpretation Code 3.2-5.0 [facility] Work Phone: [phone] Alkaline phosphatase (ALP) 53 U/L Invalid Interpretation Code 45-117 [facility] Work Phone: [phone] Aspartate aminotransferase (AST) 17 U/L Invalid Interpretation Code 15-37 [facility] Work Phone: [phone] Bilirubin (direct) 0.08 mg/dL Invalid Interpretation Code 0.00-0.30 [facility] Work Phone: [phone] Bilirubin (total) 0.20 mg/dL Invalid Interpretation Code 0.20-1.00 [facility] Work Phone: [phone] Globulin 3.9 g/dL Invalid Interpretation Code 2.2-4.2 [facility] Work Phone: [phone] Protein 7.4 g/dL Invalid Interpretation Code 6.4-8.2 [facility] Work Phone: [phone] Lab Report: Lipid Profileon 08-12-2017 Cholesterol 172 mg/dL Invalid Interpretation Code 200 [employer] Work Phone: [phone] HDL Cholesterol 59 mg/dL Invalid Interpretation Code [facility] Work Phone: [phone] LDL Cholesterol 99 mg/dL Invalid Interpretation Code 0-130 [facility] Work Phone: [phone] Triglyceride 70 mg/dL Invalid Interpretation Code [facility] Work Phone: [phone] very low density lipoproteins 14 mg/dL Invalid Interpretation Code 5-40 [facility] Phone: [phone] Lab Report: Liver Profileon 08-12-2017 Alanine aminotransferase (ALT) 36 U/L Invalid Interpretation Code 12-78 [facility] Work Phone: [phone] Albumin 3.7 g/dL Invalid Interpretation Code 3.4-5.0 [facility] Work Phone: [phone] Alkaline phosphatase (ALP) 48 U/L Invalid Interpretation Code 45-117 [facility] Phone: [phone] Aspartate aminotransferase (AST) 15 U/L Invalid Interpretation Code 15-37 [employer] Phone: [phone] Bilirubin (direct) 0.19 mg/dL Invalid Interpretation Code 0.00-0.30 [facility] Work Phone: [phone] Bilirubin (total) 0.60 mg/dL Invalid Interpretation Code 0.20-1.00 [facility] Work Phone: [phone] Globulin 4.0 g/dL Invalid Interpretation Code 2.2-4.2 [facility] Work Phone: [phone] Protein 7.7 g/dL Invalid Interpretation Code 6.4-8.2 [facility] Phone: [phone] Office Visiton 07-21-2017 Dietary management education, guidance, and counseling (procedure) yes Invalid Interpretation Code [facility] Work Phone: [phone] Documentation of current medications (procedure) Done Invalid Interpretation Code [facility] Work Phone: [phone] Fall risk assessment No Invalid Interpretation Code [facility] Work Phone: [phone] Protein mass conc Done Invalid Interpretation Code [facility] Work Phone: [phone] Office Visiton 05-31-2017 Dietary management education, guidance, and counseling (procedure) yes Invalid Interpretation Code [facility] Work Phone: [phone] Documentation of current medications (procedure) Done Invalid Interpretation Code [facility] Work Phone: [phone] Protein mass conc Done [facility] Work Phone: [phone] Lab Report: (P) CBC-Complete Blood Cnt No Diffon 05-02-2017 Erythrocyte distribution width Auto Ratio (RBC) 40.9 fL Invalid Interpretation Code 35.1-43.9 [email or web address] Work Phone: [phone] Erythrocyte distribution width Ratio (RBC) 40.9 fL 35.1-43.9 [email or web address] Work Phone: [phone] Erythrocyte distribution width Ratio (RBC) 12.6 % 11.6-14.6 [facility] Work Phone: [phone] Erythrocytes (RBC) 4.16 10*6/uL Low 4.6-6.[address] [facility] Work Phone: [phone] Hematocrit (HCT) 37.2 % Low 40-54 [facility] Work Phone: [phone] Hematocrit Volume Fraction (Bld) 37.2 % Low 40-54 [facility] Work Phone: [phone] Hemoglobin (HGB) 12.9 g/dL Low 13.0-16.5 [facility] Work Phone: [phone] MCH 31.0 pg Invalid Interpretation Code 27.0-32.0 [facility] Work Phone: [phone] MCH Entitic mass (RBC) 31.0 pg 27.0-32.0 [email or web address] Work Phone: [phone] MCHC 34.7 G/GL Invalid Interpretation Code 32-36 [facility] Work Phone: [phone] MCHC mass conc (RBC) 34.7 G/GL 32-[address] [facility] Work Phone: [phone] MCV 89.4 fL Invalid Interpretation Code 80-94 [facility] Work Phone: [phone] MCV Entitic volume (RBC) 89.4 fL 80-94 [email or web address] Work Phone: [phone] Platelet mean volume Entitic volume (Bld) 10.5 fL 6.2-12.0 [email or web address] Work Phone: [phone] Platelets 228 10*3/mm3 Invalid Interpretation Code 150-450 [facility] Work Phone: [phone] Platelets #/vol (Bld) 228 10*3/mm3 150-450 [facility] Work Phone: [phone] PMV by Augustin 10.5 fL Invalid Interpretation Code 6.2-12.0 [email or web address] Work Phone: [phone] RBC #/vol (Bld) 4.16 10*6/uL Low 4.6-6.2 [email or web address] Work Phone: [phone] RDW SD 40.9 fL Invalid Interpretation Code 35.1-43.9 [email or web address] Work Phone: [phone] RDW-CA 12.6 % Invalid Interpretation Code 11.6-14.6 [email or web address] Work Phone: [phone] red blood cell distribution width, size density 40.9 fL Invalid Interpretation Code 35.1-43.9 [email or web address] Work Phone: [phone] WBC #/vol (Bld) 6.7 10*3/uL 4.4-11.0 [email or web address] Work Phone: [phone] WBC (Leukocytes) 6.7 10*3/uL Invalid Interpretation Code 4.4-11.0 [email or web address] Work Phone: [phone]) Lab Report: Basic Metabolic Profile (BMP)on 05-02-2017 Anion gap 6 mmol/L Invalid Interpretation Code 5-15 [email or web address] Work Phone: [phone] Anion gap 4 molar conc 6 Invalid Interpretation Code 15 [email or web address] Work Phone: [phone] Anion gap molar conc 6 mmol/L 5-15 [facility] Work Phone: [phone] BUN/Creatinine Ratio 22.7 RATIO High 10-20 [facility] Work Phone: [phone] Calcium 9.0 mg/dL Invalid Interpretation Code 8.5-10.1 [employer] Work Phone: [phone] Chloride 108 mmol/L High 98-107 [facility] Work Phone: [phone] CO2 30.0 mmol/L Invalid Interpretation Code 21.0-32.0 [facility] Work Phone: [phone] CO2 ppres (BldV) 30.0 mmol/L Invalid Interpretation Code 21.0-32.0 [facility] Work Phone: [phone] Creatinine 1.10 mg/dL Invalid Interpretation Code 0.70-1.30 [facility] Work Phone: [phone] eGFR (non-black) 75 mL/min/{1.73_m2} Invalid Interpretation Code >60 [facility] Work Phone: [phone] eGFR (non-black) 90 mL/min/{1.73_m2} Invalid Interpretation Code >60 [facility] Work Phone: [phone] EST GFR - AA 90 mL/min Invalid Interpretation Code >60 [facility] Work Phone: [phone] Glucose 93 mg/dL Invalid Interpretation Code 70-110 [facility] Work Phone: [phone] Glucose mass conc 93 mg/dL Invalid Interpretation Code 70-110 [facility] Work Phone: [phone] Potassium 4.5 mmol/L Invalid Interpretation Code 3.5-5.1 [facility] Work Phone: [phone] Sodium 144 mmol/L Invalid Interpretation Code 136-145 [facility] Work Phone: [phone] Urea nitrogen 25 mg/dL High 7-18 [facility] Work Phone: [phone] Lab Report: Erythrocyte Sed Rateon 05-02-2017 ESR Velocity (Bld) 14 mm/h Invalid Interpretation Code 0-20 [facility] Work Phone: [phone] CNOVon 04-21-2017 CNOV Office Visit (AGCARDPOB) ----TOBI EVANS ([id number]) 1965 [facility] Time Provider Department04/21/17 2:30 PM NICKO HIGGINS AGCARDPOB During your visit today, we recorded the following information about you: Pulse Respiration Blood pressure Weight 57/minute 16/minute 134/72 113.5 kg Height 1.778 Lacey Rees CMA 04/21/2017 2:40 PM SignedPatient denies any cardiac complaints today.Susu Pierson MD 04/21/2017 3:10 PM SignedPRCAROMONT REGIONAL MEDICAL CENTERRY CARE PHYSICIAN:NO PCPHISTORY OF PRESENT ILLNESS:Mr. Evans is a 52 year old male who presents today for a cardiovascularmedicine follow-up visit. He is seen for coronary artery disease. He wasstarted on low-dose Imdur. He has been recently switched to Ranexa. He hashad brief episodes of chest discomfort of [place] these are not incapacitating.Tobi denies any other active cardiac symptoms. Specifically, the patientdenies shortness of breath, orthopnea, cough, edema, palpitations. The Patientclaims compliance with medications and reports no side effects or allergies.Test results were reviewed with the patient. Cardiac catheterization date and echocardiogram were reviewed.. Implications of findings wereexplained in layman's terms..He follows and was reviewed with Dr. Duque.CARDIAC RISK FACTORS:Smoking: NoDiabetes: NoLipids: YesObesity: YesHTN: YesSedentary Lifestyle: NoFamily History of M.A.C.E: YES, PATERNALCHF: NoStroke /TIA: NoMOST RECENT CARDIAC TESTING:Echo: February 2017, Normal EFCardiac Catheterization: February 2017: Patent RCA stent, occluded Cx OM stent,small vessel, 70% apical LAD stenosisHolter / Event Recorder : -Stress Test : -TILT: -Device: -PAST CARDIAC EVENTS:Nstemi, Nov 2016, Nstemi, December 2016.ALLERGIES:ALLERGIESAller gen Reactions- Atorvastatin DiarrheaMEDICATIONS:losartan (COZAAR) 25 mg tabletRANEXA 500 mg 12 hr tabletsimvastatin (ZOCOR) 40 mg tablet Take 40 mg by mouth daily at bedtime.clopidogrel (PLAVIX) 75 mg tablet Take 75 mg by mouth once daily.Hydrochlorothiazide 12.5 mg capsule Take 12.5 mg by mouth twice daily.omeprazole (PRILOSEC) 20 mg capsulenitroglycerin sublingual (NITROQUICK) 0.4 mg SL tablet Dissolve 0.4 mg underthe tongue every 5 minutes as needed.[id number] no.225 [phone] [id number]-mg tab Take by mouth.Watchung-3 Fatty Acids-Vitamin E 1,000 mg cap Take 1 capsule by mouth.alpha tocopheryl acetate (VITAMIN E) 100 unit capsule Take 100 Units by mouthonce daily.REVIEW OF SYSTEMS:GENERAL: Negative for: Weight loss or gain, Fever or Chills, Weakness and Sleepdifficulties.HEENT: Negative for: Headache, Impaired Vision, Glasses, Hearing Impairment,Ringing in Ears, Nosebleeds, Poor dental care, Bleeding Gums, DenturesNECK: Negative for: Swelling, Pain, StiffnessRESPIRATORY: Negative for: Cough, Blood in Sputum, Shortness of breath,Wheezing, ApneaGASTROINTESTINAL: Negative for: Trouble swallowing, Heartburn, Change in bowelhabits, Blood in stool, Dark black stoolsMUSCULOSKELETAL: Negative for: Muscle or joint pain, Stiffness , Joint swellingNEUROLOGIC/PSYCHIATRI C: Negative for: Weakness, Paralysis, Numbness, Tingling,Tremor, Nervousness, Depressed mood, Memory lossSKIN: Negative for: Rashes, ItchingHEMATOLOGICAL/LYMPHATI C: Negative for: Easy bruising , Easy bleedingENDOCRINE: Negative for: Heat or cold intolerance, Excessive sweating, Frequenturination, Frequent thirstPHYSICAL EXAMINATION:Extended Vitals not filed for this encounter.BP 134/72 Pulse 57 Resp 16 Ht 5' 10ANDquot; (1.78m) Wt 250 lb 3.2 oz (113.5kg) SpO2 95% BMI 35.90kg/(m2).General: Well appearing, in no acute distress.Skin: No clubbing, no cyanosis.Eyes: Extra ocular movements intactOropharynx: Teeth in good repair.Neck: No jugular venous distention, no carotid bruits, carotids have a normalupstroke, no palpable thyromegaly.Lungs: Clear to auscultation bilaterally, no wheezing or rhonchi.Heart: Regular rhythm, PMI not displaced, S1, S2 normal, no S3, no S4, noheaves, no rub and no murmur.Abdomen: Soft, nontender, bowel sounds normal, no palpable organomegaly, nobruits.Extremities: No peripheral edema . Grade 2/4 distal pulses bilaterally.Neuro: Oriented to person, place and time, alert, cooperative, gait coordinated.CARDIOVASCULAR MEDICINE TESTING:No Cardiovascular testing perfomed today.I have personally reviewed the Echocardiogram and CardiacCatheterization/Percut aneous Coronary Intervention (PCI).IMPRESSION:Mr. Evans is a 52 year old male with chronic stable angina. Has coronaryartery disease and is status post stents to the right coronary artery and thedistal obtuse marginal circumflex. In addition, he has moderate stenosis ofthe apical portion of the LAD. The LAD had in its apical portion is less than1 mm and diameter. His right coronary stent is patent, his obtuse marginalsstent is occluded. The last catheterization demonstrated partialcollateralization of this area He is managed with medications as described above.From the cardiac standpoint the patient may be followed at [place]. We willbe happy to see him at [facility] as the need arises.ASSESSMENT/PLAN:1. Mixed hyperlipidemia - ICD9: 272.2, ICD10: E78.2 (primary diagnosis)- Lipids are managed through primary medicine. For our record keeping, wewould appreciate a carbon copy of the most recent lipid panel.2. Essential hypertension - ICD9: 401.9, ICD10: I10- good control- Continue current medication(s)- Recommended regular aerobic exercise. - Recommend home blood pressuremonitoring, to bring results in on next visit- Goal of BP ANDlt;130/803. S/P coronary artery stent placement - ICD9: V45.82, ICD10: Z95.5As above4. Atherosclerosis of cabazon coronary artery of cabazon heart, angina presenceunspecified - ICD9: 414.01, ICD10: I25.10As Lorne Cardenas this 25 minute visit with greater than 50% of the time was spent indirect, [id number]-[id number], contact with the patient for management and counseling.Referring Provider: NO PCP [[id number]]Allergies As of Date: 04/21/2017 Noted Allergy ReactionATORVASTATIN 02/15/2017 6 - DiarrheaDate Reviewed: 04/21/2017Reviewed by: Yumiko Rees - Fully AssessedReason for Visit: CARD Follow Up 1 Month [1229]Primary Visit Diagnosis:Mixed hyperlipidemia [E78.2] Other Visit Diagnoses:Essential hypertension [I10] S/P coronary artery stent placement [Z95.5] Atherosclerosis of cabazon coronary artery of cabaz[place] heart, angina presence unspecified [I25.10] Comment:Chronic stable anginaPrescriptions as of 04/21/2017 Sig: LOSARTAN 25 MG TABLET RANEXA 500 MG TABLET,EXTENDED* SIMVASTATIN 40 MG TABLET Take 40 mg by mouth daily at * CLOPIDOGREL 75 MG TABLET Take 75 mg by mouth once brittany* HYDROCHLOROTHIAZIDE 12.5 MG C* Take 12.5 mg by mouth twice d* OMEPRAZOLE 20 MG CAPSULE,LATRELL* NITROGLYCERIN 0.4 MG SUBLINGU* Dissolve 0.4 mg under the ton* B6 100 MG-FA 800 MCG-B12 200 * Take by mouth. OMEGA-3 FATTY ACIDS-VITAMIN E* Take 1 capsule by mouth. 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 Non morbid obesity [E66.9] INVALID FOR* Loose body in knee, right knee [M23.41] INVALID FOR* CAD (coronary artery disease) [I25.10] INVALID FOR* Hypertension [I10] Myocardial infarct (HCC) [I21.3] INVALID FOR*Visit Notes:>> Yumiko Cabrera Shanna Apr 21, 2017 2:39 PM Status: SignedPatient denies any cardiac complaints today.Yumiko Rees, CMAMedications Discontinued During This Encounter simvastatin (ZOCOR) 20 mg tablet 02/17/2017 04/21/2017 Class: Historical Med Sig: Disc: Reason for discontinue is not on file. Omeprazole 40 mg capsule 03/17/2017 04/21/2017 Class: Historical Med Sig: Disc: Reason for discontinue is not on file. losartan (COZAAR) 50 mg tablet 02/17/2017 04/21/2017 Class: Historical Med Sig: Disc: Reason for discontinue is not on file. Flaxseed Oil 1,000 mg cap 04/21/2017 Class: Historical Med Route: ORAL Sig: Take by mouth. Disc: Duplicate Entry oxyCODONE-acetaminophen (PERCOCET) 5* 40 t* 0 12/23/2015 04/21/2017 Class: Print RX Route: ORAL Sig: Take 1 tablet by mouth four times daily as needed for Pain. Disc: Reason for discontinue is not on file. UBIDECARENONE/VITAMIN E MIXED (COQ10* 04/21/2017 Class: Historical Med Route: ORAL Sig: Take by mouth. Disc: Reason for discontinue is not on file. triamcinolone acetonide (KENALOG) 0.* 08/05/2016 04/21/2017 Class: Historical Med Sig: Disc: Reason for discontinue is not on file. simvastatin (ZOCOR) 20 mg tablet 02/17/2017 04/21/2017 Class: Historical Med Sig: Disc: Reason for discontinue is not on file. losartan (COZAAR) 50 mg tablet 02/17/2017 04/21/2017 Class: Historical Med Sig: Disc: Reason for discontinue is not on file. Omeprazole 40 mg capsule 03/17/2017 04/21/2017 Class: Historical Med Sig: Disc: Reason for discontinue is not on file. isosorbide mononitrate ER (IMDUR) 30* 02/15/2017 04/21/2017 Class: Historical Med Sig: Disc: Reason for discontinue is not on file. isosorbide mononitrate ER (IMDUR) 60* 04/01/2017 04/21/2017 Class: Historical Med Sig: Disc: Reason for discontinue is not on file.Letter TextEncounter Number: [id number] Status:Closed by NICKO HIGGINS MD on 04/21/[address] [facility] PROGRESSon 04-21-2017 PROGRESS HNO ID: [id number] thor: Nicko López: (none)Author Type: PhysicianType: Progress NotesFiled: 04/21/2017 3:10 PMNote Text:PRIMARY CARE PHYSICIAN:NO PCPHISTORY OF PRESENT ILLNESS:Mr. Evans is a 52 year old male who presents today for acardiovascular medicine follow-up visit. He is seen for coronary arterydisease. He was started on low-dose Imdur. He has been recently switchedto Ranexa. He has had brief episodes of chest discomfort of [place] theseare not incapacitating.Tobi denies any other active cardiac symptoms. Specifically, thepatient denies shortness of breath, orthopnea, cough, edema,palpitations. The Patient claims compliance with medications and reportsno side effects or allergies.Test results were reviewed with the patient. Cardiac catheterizationdated February 26 and echocardiogram were reviewed.. Implications offindings were explained in layman's terms..He follows and was reviewed with Dr. Duque.CARDIAC RISK FACTORS:Smoking: NoDiabetes: NoLipids: YesObesity: YesHTN: YesSedentary Lifestyle: NoFamily History of M.A.C.E: YES, PATERNALCHF: NoStroke /TIA: NoMOST RECENT CARDIAC TESTING:Echo: February 2017, Normal EFCardiac Catheterization: February 2017: Patent RCA stent, occluded Cx OMstent, small vessel, 70% apical LAD stenosisHolter / Event Recorder : -Stress Test : -TILT: -Device: -PAST CARDIAC EVENTS:Nstemi, Nov 2016, Nstemi, December 2016.ALLERGIES:ALLERGIESAller gen Reactions- Atorvastatin DiarrheaMEDICATIONS:losartan (COZAAR) 25 mg tabletRANEXA 500 mg 12 hr tabletsimvastatin (ZOCOR) 40 mg tablet Take 40 mg by mouth daily at bedtime.clopidogrel (PLAVIX) 75 mg tablet Take 75 mg by mouth once daily.Hydrochlorothiazide 12.5 mg capsule Take 12.5 mg by mouth twice daily.omeprazole (PRILOSEC) 20 mg capsulenitroglycerin sublingual (NITROQUICK) 0.4 mg SL tablet Dissolve 0.4 mgunder the tongue every 5 minutes as needed.[id number]-co O34-hniy no.225 [id number] du-oln-sqm-mg tab Take bymouth.Watchung-3 Fatty Acids-Vitamin E 1,000 mg cap Take 1 capsule by mouth.alpha tocopheryl acetate (VITAMIN E) 100 unit capsule Take 100 Units bymouth once daily.REVIEW OF SYSTEMS:GENERAL: Negative for: Weight loss or gain, Fever or Chills, Weakness andSleep difficulties.HEENT: Negative for: Headache, Impaired Vision, Glasses, HearingImpairment, Ringing in Ears, Nosebleeds, Poor dental care, Bleeding Gums,DenturesNECK: Negative for: Swelling, Pain, StiffnessRESPIRATORY: Negative for: Cough, Blood in Sputum, Shortness of breath,Wheezing, ApneaGASTROINTESTINAL: Negative for: Trouble swallowing, Heartburn, Change inbowel habits, Blood in stool, Dark black stoolsMUSCULOSKELETAL: Negative for: Muscle or joint pain, Stiffness , JointswellingNEUROLOGIC/PSYCH IATRIC: Negative for: Weakness, Paralysis, Numbness,Tingling, Tremor, Nervousness, Depressed mood, Memory lossSKIN: Negative for: Rashes, ItchingHEMATOLOGICAL/LYMPHATI C: Negative for: Easy bruising , Easy bleedingENDOCRINE: Negative for: Heat or cold intolerance, Excessive sweating,Frequent urination, Frequent thirstPHYSICAL EXAMINATION:Extended Vitals not filed for this encounter.BP 134/72 Pulse 57 Resp16 Ht 5' 10 (1.78m) Wt 250 lb 3.2 oz (113.5kg) SpO2 95% BMI 35.90kg/(m2).General: Well appearing, in no acute distress.Skin: No clubbing, no cyanosis.Eyes: Extra ocular movements intactOropharynx: Teeth in good repair.Neck: No jugular venous distention, no carotid bruits, carotids have anormal upstroke, no palpable thyromegaly.Lungs: Clear to auscultation bilaterally, no wheezing or rhonchi.Heart: Regular rhythm, PMI not displaced, S1, S2 normal, no S3, no S4, noheaves, no rub and no murmur.Abdomen: Soft, nontender, bowel sounds normal, no palpable organomegaly,no bruits.Extremities: No peripheral edema . Grade 2/4 distal pulses bilaterally.Neuro: Oriented to person, place and time, alert, cooperative, gaitcoordinated.CARDIOVASCULA R MEDICINE TESTING:No Cardiovascular testing perfomed today.I have personally reviewed the Echocardiogram and CardiacCatheterization/Percut aneous Coronary Intervention (PCI).IMPRESSION:Mr. Evans is a 52 year old male with chronic stable angina. Hascoronary artery disease and is status post stents to the right coronaryartery and the distal obtuse marginal circumflex. In addition, he hasmoderate stenosis of the apical portion of the LAD. The LAD had in itsapical portion is less than 1 mm and diameter. His right coronary stent ispatent, his obtuse marginals stent is occluded. The last catheterizationdemonstrated partial collateralization of this area He is managed with medications as described above.From the cardiac standpoint the patient may be followed at [place]. Wewill be happy to see him at [facility] as the need arises.ASSESSMENT/PLAN:1. Mixed hyperlipidemia - ICD9: 272.2, ICD10: E78.2 (primary diagnosis)- Lipids are managed through primary medicine. For our record keeping,we would appreciate a carbon copy of the most recent lipid panel.2. Essential hypertension - ICD9: 401.9, ICD10: I10- good control- Continue current medication(s)- Recommended regular aerobic exercise. - Recommend home blood pressuremonitoring, to bring results in on next visit- Goal of BP <130/803. S/P coronary artery stent placement - ICD9: V45.82, ICD10: Z95.5As above4. Atherosclerosis of cabazon coronary artery of cabazon heart, anginapresence unspecified - ICD9: 414.01, ICD10: I25.10As Palak Higgins, MDDuring this 25 minute visit with greater than 50% of the time was spent indirect, rrym-mz-huva, contact with the patient for management andcounseling. Normal [facility] Lab Report: Lipid Profileon 04-20-2017 Cholesterol 152 mg/dL Invalid Interpretation Code 200 [facility] Work Phone: [phone] HDL Cholesterol 57 mg/dL Invalid Interpretation Code [employer] Work Phone: [phone] LDL Cholesterol 80 mg/dL Invalid Interpretation Code 0-130 [employer] Work Phone: [phone] Triglyceride 73 mg/dL Invalid Interpretation Code [employer] Work Phone: [phone] very low density lipoproteins 15 mg/dL Invalid Interpretation Code 5-40 [employer] Work Phone: [phone] Lab Report: Liver Profileon 04-20-2017 Alanine aminotransferase (ALT) 39 U/L Invalid Interpretation Code 12-78 [employer] Work Phone: [phone] Albumin 3.6 g/dL Invalid Interpretation Code 3.4-5.0 [employer] Work Phone: [phone] Alkaline phosphatase (ALP) 48 U/L Invalid Interpretation Code 45-117 [employer] Work Phone: [phone] ALP enzyme act/vol (Bld) 48 U/L Invalid Interpretation Code 45-117 [employer] Work Phone: [phone] Aspartate aminotransferase (AST) 18 U/L Invalid Interpretation Code 15-37 [employer] Phone: [phone] Bilirubin (direct) 0.15 mg/dL Invalid Interpretation Code 0.00-0.30 [employer] Work Phone: [phone] Bilirubin (total) 0.60 mg/dL Invalid Interpretation Code 0.20-1.00 [employer] Phone: [phone] Globulin 3.9 g/dL High 2.3-3.5 [employer] Work Phone: [phone] Globulin mass conc (S) 3.9 g/dL High 2.3-3.5 [employer] Work Phone: [phone] Protein 7.5 g/dL Invalid Interpretation Code 6.4-8.2 [employer] Work Phone: [phone] Office Visiton 03-01-2017 Documentation of current medications (procedure) Done Invalid Interpretation Code [employer] Work Phone: [phone] Protein mass conc Done [employer] Work Phone: [phone] Lab Report: Lipid Profileon 02-04-2017 Cholesterol 146 mg/dL Invalid Interpretation Code 200 [employer] Work Phone: [phone] HDL Cholesterol 57 mg/dL Invalid Interpretation Code [employer] Work Phone: [phone] LDL Cholesterol 75 mg/dL Invalid Interpretation Code 0-130 [employer] Work Phone: [phone] Triglyceride 71 mg/dL Invalid Interpretation Code [employer] Work Phone: [phone] very low density lipoproteins 14 mg/dL Invalid Interpretation Code 5-40 [employer] Work Phone: [phone] Lab Report: Liver Profileon 02-04-2017 Alanine aminotransferase (ALT) 55 U/L Invalid Interpretation Code 12-78 [employer] Work Phone: [phone] Albumin 3.6 g/dL Invalid Interpretation Code 3.4-5.0 [employer] Work Phone: [phone] Alkaline phosphatase (ALP) 44 U/L Low 45-117 [employer] Work Phone: [phone] ALP (Bld) [Catalytic activity/Vol] 44 U/L Low 45-117 [employer] Work Phone: [phone] Aspartate aminotransferase (AST) 25 U/L Invalid Interpretation Code 15-37 [employer] Work Phone: [phone] Bilirubin (direct) 0.13 mg/dL Invalid Interpretation Code 0.00-0.30 [employer] Work Phone: [phone] Bilirubin (total) 0.80 mg/dL Invalid Interpretation Code 0.20-1.00 [employer] Work Phone: [phone] Globulin 3.6 g/dL High 2.3-3.5 [employer] Work Phone: [phone] Globulin (S) [Mass/Vol] 3.6 g/dL High 2.3-3.5 [employer] Work Phone: [phone] Protein 7.2 g/dL Invalid Interpretation Code 6.4-8.2 [facility] Work Phone: [phone] External Other: Preferred Me thod of Contacton 02-01-2017 methcontact phone Invalid Interpretation Code [facility] Work Phone: [phone] Patient's prefered method of contact phone Invalid Interpretation Code [facility] Work Phone: [phone] Lab Report: Basic Metabolic Profile (BMP)on 01-17-2017 Anion gap 9 mmol/L Invalid Interpretation Code - [facility] Work Phone: [phone] Anion gap [Moles/Vol] 9 mmol/L 02-21 [facility] Work Phone: [phone] BUN/Creatinine Ratio 20.2 RATIO High 10-[address] [email or web address] Work Phone: [phone] Calcium 9.1 mg/dL Invalid Interpretation Code 8.5-10.1 [email or web address] Work Phone: [phone] Chloride 103 mmol/L Invalid Interpretation Code 98-107 [email or web address] Work Phone: [phone] CO2 27.0 mmol/L Invalid Interpretation Code 21.0-32.0 [email or web address] Work Phone: [phone] CO2 (BldV) [Partial pressure] 27.0 mmol/L 21.0-32.0 [email or web address] Work Phone: [phone] Creatinine 0.99 mg/dL Invalid Interpretation Code 0.70-1.30 [facility] [employer] Work Phone: [phone] eGFR (non-black) 102 mL/min/{1.73_m2} Invalid Interpretation Code >60 [facility] Work Phone: [phone] eGFR (non-black) 84 mL/min/{1.73_m2} Invalid Interpretation Code >60 [email or web address] Work Phone: [phone] EST GFR - AA 102 mL/min >60 [email or web address] Work Phone: [phone] Glucose 92 mg/dL Invalid Interpretation Code 70-110 [email or web address] Work Phone: [phone] Glucose mass conc 92 mg/dL 70-110 [facility] Work Phone: [phone] Potassium molar conc 3.8 mmol/L Invalid Interpretation Code 3.5-5.1 [facility] Work Phone: [phone] Sodium 139 mmol/L Invalid Interpretation Code 136-145 [facility] Work Phone: [phone] Urea nitrogen 20 mg/dL High 7-18 [facility] Work Phone: [phone] Lab Report: CBC-Complete Blo od Cnt No Diffon 01-17-2017 Erythrocyte distribution width (RBC) [Ratio] 43.6 fL 35.1-43.9 [facility] Work Phone: [phone] Erythrocyte distribution width (RBC) [Ratio] 13.3 % 11.6-14.6 [facility] Work Phone: [phone] Erythrocyte distribution width Auto Ratio (RBC) 13.3 % Invalid Interpretation Code 11.6-14.6 [facility] Work Phone: [phone] Erythrocytes (RBC) 4.40 10*6/uL Low 4.6-6.[address] [facility] [address] [facility] Work Phone: [phone] Hematocrit (Bld) [Volume fraction] 39.7 % Low 40-54 [facility] Work Phone: [phone] Hematocrit (HCT) 39.7 % Low 40-54 [facility] Work Phone: [phone] Hemoglobin mass conc (Bld) 13.2 g/dL Invalid Interpretation Code 13.0-16.5 [facility] Work Phone: [phone] MCH 30.0 pg Invalid Interpretation Code 27.0-32.0 [facility] Work Phone: [phone] MCH (RBC) [Entitic mass] 30.0 pg 27.0-32.0 [facility] Work Phone: [phone] MCHC (RBC) [Mass/Vol] 33.2 G/GL 32-36 [facility] Work Phone: [phone] MCHC mass conc (RBC) 33.2 G/GL Invalid Interpretation Code 32-36 [facility] Work Phone: [phone] MCV 90.2 fL Invalid Interpretation Code 80-94 [facility] Work Phone: [phone] MCV (RBC) [Entitic vol] 90.2 fL 80-94 [facility] Work Phone: [phone] Platelet mean volume (Bld) [Entitic vol] 10.9 fL 6.2-12.0 [facility] Work Phone: [phone] Platelets 279 10*3/mm3 Invalid Interpretation Code 150-450 [facility] Work Phone: [phone] Platelets (Bld) [#/Vol] 279 10*3/mm3 150-450 [facility] Work Phone: [phone] PMV by Augustin 10.9 fL Invalid Interpretation Code 6.2-12.0 [facility] Work Phone: [phone] RBC (Bld) [#/Vol] 4.40 10*6/uL Low 4.6-6.2 [facility] Work Phone: [phone] RDW SD 43.6 fL Invalid Interpretation Code 35.1-43.9 [facility] Work Phone: [phone] red blood cell distribution width, size density 43.6 fL Invalid Interpretation Code 35.1-43.9 [facility] Work Phone: [phone] WBC (Bld) [#/Vol] 6.1 10*3/uL 4.4-11.0 [facility] Work Phone: [phone] WBC (Leukocytes) 6.1 10*3/uL Invalid Interpretation Code 4.4-11.0 [facility] Work Phone: [phone] Lab Report: Prothrombin Time w/INRon 01-17-2017 INR Coag RelTime (PPP) 1.0 {INR} Invalid Interpretation Code [facility] Work Phone: [phone] INR in blood by coagulation 1.0 {INR} Invalid Interpretation Code [facility] Work Phone: [phone] Prothrombin time (PT) Coag time (PPP) 13 s Invalid Interpretation Code 11.7-14.9 [facility] Work Phone: [phone] Office Visiton 01-17-2017 Documentation of current medications (procedure) Done Invalid Interpretation Code [facility] Work Phone: Fall risk assessment No [facility] Work Phone: [phone] Replaced Document: Cyndy LUNA Observationson 01-17-2017 EKG QRS axis -4 deg Invalid Interpretation Code [facility] Work Phone: electrocardiogram interpretation Sinus Bradycardia WITHIN NORMAL LIMITS Invalid Interpretation Code [facility] Work Phone: GE use only - for [employer] import when terms are not otherwise specified 398 ms Invalid Interpretation Code [facility] Work Phone: Interpretation Sinus Bradycardia WI THIN NORMAL LIMITS Invalid Interpretation Code [facility] Work Phone: P [place] 31 deg Invalid Interpretation Code [facility] Work Phone: P wave axis, electrocardiogram 31 deg Invalid Interpretation Code [facility] Work Phone: SD Interval 198 ms Invalid Interpretation Code [facility] Work Phone: SD interval, electrocardiogram 198 ms Invalid Interpretation Code [facility] Work Phone: Pulse (Heart Rate) 54 /min Invalid Interpretation Code [facility] Work Phone: QRS axis, electrocardiogram -4 deg Invalid Interpretation Code [facility] Work Phone: [phone] QRS Duration 112 ms Invalid Interpretation Code [facility] Work Phone: QRS duration, electrocardiogram 112 ms Invalid Interpretation Code [facility] Work Phone: QT Interval new path ms Invalid Interpretation Code [facility] Work Phone: QT interval, electrocardiogram new path ms Invalid Interpretation Code [facility] Work Phone: QTc [place] 398 ms Invalid Interpretation Code [facility] Work Phone: T [place] -1 deg Invalid Interpretation Code [facility] Work Phone: T wave axis, electrocardiogram -1 deg Invalid Interpretation Code [facility] Work Phone: Clinical Lists Update: [employer] 01-12-2017 Left ventricular Ejection fraction 65-70 Invalid Interpretation Code [facility] Work Phone: Office Visiton 12-02-2016 Dietary management education, guidance, and counseling (procedure) yes Invalid Interpretation Code [facility] Work Phone: [phone] Tobacco smoking status NHIS Tobacco smoking status NHIS Invalid Interpretation Code [facility] Work Phone: [phone] Tobacco smoking status NHIS Former smoker Invalid Interpretation Code [facility] Work Phone: [phone] Tobacco use [facility] Former smoker Invalid Interpretation Code [facility] Work Phone: [phone] No Panel Information Nasal Screen MRSA/MSSA [facility] Work Phone: Vital Signs Date Time Vital Sign Value Performing Clinician Faci lity 10-29-2022 12:59-0500 Body height 177.[address] Rosmery Christie Work Phone: [facility] 10-29-2022 12:59-0500 Body mass index (BMI) [Ratio] 38.2 kg/m2 Dr. Rosmery Christie Work Phone: [facility] 10-29-2022 12:59-0500 Body weight 121.[address] Rosmery Christie Work Phone: [facility] 10-29-2022 12:59-0500 Diastolic blood pressure 79 mm[Hg] Dr. Rosmery Christie Work Phone: [facility] 10-29-2022 12:59-0500 Heart rate 81 /min Dr. Rosmery Christie Work Phone: [facility] 10-29-2022 12:59-0500 Respiratory rate 20 /min Dr. Rosmery Christie Work Phone: [facility] 10-29-2022 12:59-0500 SaO2% (BldA) [Mass fraction] 93 % Dr. Rosmery Christie Work Phone: [facility] 10-29-2022 12:59-0500 Systolic blood pressure 134 mm[Hg] Dr. Rosmery Christie Work Phone: [facility] 11-25-2021 13:41-0500 Body height 177.[address] Rosmery Christie Work Phone: [facility] Work Phone: 11-25-2021 13:41-0500 Body weight 118.[address] Rosmery Christie Work Phone: [facility] Work Phone: 11-25-2021 13:41-0500 Diastolic blood pressure 78 mm[Hg] Dr. Rosmery Christie Work Phone: [facility] Work Phone: 11-25-2021 13:41-0500 Heart rate 52 /min Dr. Rosmery Christie Work Phone: [facility] Work Phone: 11-25-2021 13:41-0500 Respiratory rate 18 /min Dr. Rosmery Christie Work Phone: [facility] Work Phone: 11-25-2021 13:41-0500 Systolic blood pressure 126 mm[Hg] Dr. Rosmery Christie Work Phone: [facility] Work Phone: 11-28-2020 09:02-0500 Body mass index (BMI) [Ratio] 36.7 kg/m2 Dr. Rosmery Christie Work Phone: [facility] Work Phone: 07-21-2017 13:11-0400 BMI (Body Mass Index) 36.44 kg/m2 Ilana Brooks [facility] Work Phone: 07-21-2017 13:11-0400 BP Diastolic 76 mm[Hg] Ilana Brooks [facility] Work Phone: 07-21-2017 13:11-0400 BP Systolic 132 mm[Hg] [facility] Work Phone: 07-21-2017 13:11-0400 Height 177.8 cm Ilana [facility] Work Phone: 07-21-2017 13:11-0400 Pulse (Heart Rate) 48 /min Ilana Gan [facility] Work Phone: 07-21-2017 13:11-0400 Respiratory Rate 18 /min [facility] Work Phone: 07-21-2017 13:11-0400 Weight 115.21 kg [facility] Work Phone: 05-31-2017 15:09-0400 BMI (Body Mass Index) 35.29 kg/m2 [facility] Work Phone: 05-31-2017 15:09-0400 BP Diastolic 64 mm[Hg] [facility] Work Phone: 05-31-2017 15:09-0400 BP Systolic 114 mm[Hg] [facility] Work Phone: 05-31-2017 15:09-0400 Height 177.8 cm [facility] Work Phone: 05-31-2017 15:09-0400 Pulse (Heart Rate) 58 /min [facility] Work Phone: 05-31-2017 15:09-0400 Respiratory Rate 18 /min [facility] Work Phone: 05-31-2017 15:09-0400 Weight 111.59 kg [facility] Work Phone: 03-01-2017 12:33-0400 BMI (Body Mass Index) 36.3 kg/m2 Justo Duque MD [facility] Work Phone: 03-01-2017 12:33-0400 Body weight 114.76 kg [facility] Work Phone: 03-01-2017 12:33-0400 BP Diastolic 60 mm[Hg] Justo Duque MD [facility] Work Phone: 03-01-2017 12:33-0400 BP Systolic 112 mm[Hg] Justo Duque MD [facility] Work Phone: 03-01-2017 12:33-0400 Height 177.8 cm Jutso Duque MD [facility] Work Phone: 03-01-2017 12:33-0400 Respiratory Rate 18 /min Justo Duque MD [facility] Work Phone: 03-01-2017 12:33-0400 Weight 114.76 kg Justo Duque MD [facility] Work Phone: 01-17-2017 14:16-0400 Heart rate 54 /min Bethany Vargas [facility] Work Phone: 01-17-2017 12:59-0400 BMI (Body Mass Index) 35.72 kg/m2 [facility] Work Phone: 01-17-2017 12:59-0400 BP Diastolic 40 mm[Hg] [facility] Work Phone: 01-17-2017 12:59-0400 BP Systolic 98 mm[Hg] [facility] Work Phone: 01-17-2017 12:59-0400 Height 177.8 cm [facility] Work Phone: 01-17-2017 12:59-0400 Respiratory Rate 60 /min [facility] Work Phone: 01-17-2017 12:59-0400 Weight 112.95 kg [facility] Work Phone: 12-02-2016 13:34-0500 BSA (Body Surface Area) 2.29 m2 [facility] Work Phone: 12-02-2016 13:34-0500 Pulse (Heart Rate) 54 /min [facility] Work Phone: Encounters Encounter Date Encounter Type Care Provider Facility Start: 09-21-2024 End: 09-21-2024 ambulatory [facility] Facility[facility] Start: 09-21-2024 End: 09-21-2024 [facility] Start: 08-30-2024 End: 08-30-2024 ambulatory Rosmery AustinShahnaz Facility:[facility] Start: 04-18-2024 ambulatory [facility] Facility: [facility] Start: 04-18-2024 End: 04-18-2024 ambulatory Naomy Joe Facility:[facility] Start: 2024 End: 2024 ambulatory [facility] Facility:[facility] Start: 02-10-2024 End: 02-10-2024 ambulatory [facility] Work Phone: Start: 02-10-2024 End: 02-10-2024 Patient encounter procedure [facility] Work Phone: Start: 02-10-2024 End: 02-10-[address] [facility] Facility:[facility] Start: 10-29-2022 End: 10-29-[address] Rosmery Christie Work Phone: [facility] Start: 10-28-2022 Non-patient / Non-visit Dr. Patricia Christie Work Phone: [facility] Start: 10-27-2022 Non-patient / Non-visit Dr. Patricia Christie Work Phone: [facility] Start: 10-27-2022 End: 10-27-[address] Rosmery Christie Work Phone: [facility] Work Phone: Start: 10-27-2022 End: 10-27-[address] Rosmery Christie Work Phone: [facility] Start: 04-21-2022 End: 04-21-2022 Patient encounter procedure CANDACE DONNELLY MD [facility] Start: 04-13-2022 End: 04-13-[address] Rosmery Christie Work Phone: [facility]Pulmonary Services/Neurology Start: 04-13-2022 Non-patient / Non-visit Dr. Patricia Christie Work Phone: [facility] Start: 12-29-2021 End: 12-29-[address] Rosmery Christie Work Phone: [facility] Start: 12-22-2021 Non-patient / Non-visit Dr. Patricia Christie Work Phone: [facility] Start: 12-22-2021 End: 12-22-[address] Rosmery Christie Work Phone: [facility] Start: 11-25-2021 End: 11-25-[address] Rosmery Christie Work Phone: [facility] Start: 09-14-2021 End: 09-14-[address] Rosmery Christie Work Phone: [facility]Laboratory, Specimen Start: 04-21-2017 End: 04-21-2017 Ambulatory NICKO XAVIER HIGGINS [facility] Start: 02-23-2017 End: 02-23-2017 Ambulatory LESIA JOSHUA Facility:[facility] Procedures Date Procedure Procedure Detail Performing Clinician Start: 10-27-2022 Radionuclide imaging of perfusion of myocardium under exercise stress Dr. Rosmery Christie Work Phone: Start: 09-14-2021 Respiratory Panel (PCR) Dr. Rosmery alejandre Work Phone: Start: 08-15-2017 End: 08-15-2017 Lipid 1996 panel - Serum or Plasma Justo Duque MD Work Phone: Start: 08-15-2017 End: 11-15-2017 Lipid panel [AGGREGATE] Justo Duque MD Work Phone: Start: 08-12-2017 End: 08-12-2017 *Hepatic Function Panel Justo Duque MD Work Phone: Start: 08-12-2017 End: 11-15-2017 *Hepatic Function Panel Justo Duque MD Work Phone: Start: 07-21-2017 End: 07-21-2017 JANETTE Duque MD Work Phone: Start: 07-21-2017 End: 07-21-2017 Follow Up Appt 6 months Justo Duque MD Work Phone: Start: 07-21-2017 End: 07-21-2017 Dietary management education, guidance, and counseling Ilana Brooks Start: 07-21-2017 End: 07-21-2017 JANETTE Duque MD Work Phone: Start: 07-21-2017 End: 07-21-2017 Follow Up Appt 6 months Justo Duque MD Work Phone: Start: 05-31-2017 End: 05-31-2017 Dietary management education, guidance, and counseling Ilana Brooks Start: 05-31-2017 End: 05-31-2017 JANETTE Duque MD Work Phone: Start: 05-31-2017 End: 05-31-2017 Follow Up Appt 1 month Justo Duque MD Work Phone: Start: 05-31-2017 End: 05-31-2017 JANETTE Duque MD Work Phone: Start: 05-31-2017 End: 05-31-2017 Follow Up Appt 1 month Justo Duque MD Work Phone: Start: 05-09-2017 End: 05-10-2017 Referral to client support administrator Justo Duque MD Work Phone: Start: 05-09-2017 End: 05-31-2017 Referral to client support administrator Justo Duque MD Work Phone: Start: 05-02-2017 End: 05-02-2017 *BMP Justo Duque MD Work Phone: Start: 05-02-2017 End: 05-03-2017 CBC W Auto Differential panel - Blood Justo Duque MD Work Phone: Start: 05-02-2017 End: 05-03-2017 Sedimentation rate rbc non-automated Justo Duque MD Work Phone: Start: 05-02-2017 End: 05-02-2017 *BMP Justo Duque MD Work Phone: Start: 05-02-2017 End: 05-03-2017 CBC W Auto Differential panel - Blood Justo Duque MD Work Phone: Start: 05-02-2017 End: 05-03-2017 Erythrocyte sedimentation rate Justo Duque MD Work Phone: Start: 05-02-2017 End: 05-03-2017 Sedimentation rate rbc non-automated Justo Duque MD Work Phone: Start: 04-11-2017 End: 04-20-2017 *Hepatic Function Panel Justo Duque MD Work Phone: Start: 04-11-2017 End: 04-20-2017 Lipid 1996 panel - Serum or Plasma Justo Duque MD Work Phone: Start: 04-11-2017 End: 04-20-2017 *Hepatic Function Panel Justo Duque MD Work Phone: Start: 04-11-2017 End: 04-20-2017 Lipid panel [AGGREGATE] Justo Duque MD Work Phone: Start: 03-16-2017 End: 04-20-2017 Xtrnl mobile cv telemetry w/i&report 30 days Justo Duque MD Work Phone: Start: 03-16-2017 End: 04-20-2017 Remote 30 day ecg rev/report Justo Duque MD Work Phone: Start: 03-14-2017 End: 05-31-2017 Stress Echocardiogram (treadmill) Justo Duque MD Work Phone: Start: 03-14-2017 End: 05-31-2017 Stress Echocardiogram (treadmill) Justo Duque MD Work Phone: Start: 03-01-2017 End: 04-20-2017 JANETTE Duque MD Work Phone: Start: 03-01-2017 End: 04-20-2017 Follow Up Appt 3 months Justo Duque MD Work Phone: Start: 03-01-2017 End: 03-02-2017 Referral to client support administrator Justo Duque MD Work Phone: Start: 03-01-2017 End: 03-01-2017 Documentation of current medications Bethany Vargas Start: 03-01-2017 End: 04-20-2017 JANETTE Duque MD Work Phone: Start: 03-01-2017 End: 04-20-2017 Follow Up Appt 3 months Justo Duque MD Work Phone: Start: 03-01-2017 End: 04-20-2017 Referral to client support administrator Justo Duqeu MD Work Phone: Start: 01-28-2017 End: 01-28-2017 Nurse, Teaching, Wound Check (no charge) Justo Duque MD Work Phone: Start: 01-28-2017 Percutaneous transluminal coronary angioplasty Status post PTCA and/or stent Ilana Brooks Start: 01-28-2017 Placement of stent in coronary artery Status post cardiac stent placement Ilana Brooks Start: 01-28-2017 End: 01-28-2017 Nurse, Teaching, Wound Check (no charge) Justo Duque MD Work Phone: Start: 01-28-2017 Percutaneous transluminal coronary angioplasty Status post PTCA and/or stent Bethany Sam Start: 01-28-2017 Placement of stent in coronary artery Status post cardiac stent placement Naa Pelayo RN Start: 01-24-2017 End: 02-04-2017 *Hepatic Function Panel Justo Duque MD Work Phone: Start: 01-24-2017 End: 02-04-2017 Lipid 1996 panel - Serum or Plasma Justo Duque MD Work Phone: Start: 01-24-2017 End: 02-04-2017 *Hepatic Function Panel Justo Duque MD Work Phone: Start: 01-24-2017 End: 02-04-2017 Lipid panel [AGGREGATE] Justo Duque MD Work Phone: Start: 01-17-2017 End: 01-17-2017 *BMP Justo Duque MD Work Phone: Start: 01-17-2017 End: 01-17-2017 CBC W Auto Differential panel - Blood Justo Duque MD Work Phone: Start: 01-17-2017 End: 01-17-2017 DJN Justo Duque MD Work Phone: Start: 01-17-2017 End: 01-17-2017 Ecg routine ecg w/least 12 lds w/i&r Justo Duque MD Work Phone: Start: 01-17-2017 End: 01-17-2017 Follow Up Appt 6 months Justo Duque MD Work Phone: Start: 01-17-2017 End: 02-10-2017 Heart Cath with FFR Justo Duque MD Work Phone: Start: 01-17-2017 End: 01-17-2017 INR in Platelet poor plasma by Coagulation assay Justo Duque MD Work Phone: Start: 01-17-2017 End: 01-17-2017 *BMP Justo Duque MD Work Phone: Start: 01-17-2017 End: 01-17-2017 CBC W Auto Differential panel - Blood Justo Duque MD Work Phone: Start: 01-17-2017 End: 01-17-2017 Coagulation factor induced.INR assay in platelet poor plasma Justo Duque MD Work Phone: Start: 01-17-2017 End: 01-17-2017 JANETTE Duque MD Work Phone: Start: 01-17-2017 End: 01-17-2017 Electrocardiogram, complete Justo Duque MD Work Phone: Start: 01-17-2017 End: 01-17-2017 Follow Up Appt 6 months Justo Duque MD Work Phone: Start: 01-17-2017 End: 02-10-2017 Heart Cath with FFR Justo Duque MD Work Phone: Start: 01-08-2017 History of placement of stent for coronary artery disease S/P coronary artery stent placement Dr. Rosmery Christie Work Phone: Start: 12-02-2016 End: 12-08-2016 *Hepatic Function Panel Justo Duque MD Work Phone: Start: 12-02-2016 End: 12-02-2016 JANETTE Duque MD Work Phone: Start: 12-02-2016 End: 12-02-2016 Follow Up Appt 1 month Justo Duque MD Work Phone: Start: 12-02-2016 End: 12-08-2016 Lipid 1996 panel - Serum or Plasma Justo Duque MD Work Phone: Start: 12-02-2016 End: 12-08-2016 Stress Echocardiogram (treadmill) Justo Duque MD Work Phone: Start: 12-02-2016 End: 12-02-2016 Dietary management education, guidance, and counseling Bethany Sam Start: 12-02-2016 End: 12-08-2016 *Hepatic Function Panel Justo Duque MD Work Phone: Start: 12-02-2016 End: 12-02-2016 JANETTE Duque MD Work Phone: Start: 12-02-2016 End: 12-02-2016 Follow Up Appt 1 month Justo Duque MD Work Phone: Start: 12-02-2016 End: 12-08-2016 Lipid panel [AGGREGATE] Justo Duque MD Work Phone: Start: 12-02-2016 End: 12-08-2016 Stress Echocardiogram (treadmill) Justo Duque MD Work Phone: Start: 11-15-2016 End: 11-15-2016 Nurse, Teaching, Wound Check (no charge) Justo Duque MD Work Phone: Start: 11-15-2016 Placement of stent in coronary artery Coronary stent Ilana Brooks Start: 11-15-2016 End: 11-15-2016 Nurse, Teaching, Wound Check (no charge) Justo Duque MD Work Phone: Start: 11-15-2016 Placement of stent in coronary artery Coronary stent Bethany Vargas Nasal Screen MRSA/MSSA Dr. Morris Christie Work Phone: Plan of Treatment Date Care Activity Detail Author Start: 02-13-2018 End: 08-19-2017 *Hepatic Function Panel *Hepatic Function Panel [facility] Work Phone: Start: 02-13-2018 End: 08-19-2017 Lipid panel [AGGREGATE] *Lipid Profile CC PCP [facility] Work Phone: Start: 02-13-2018 End: 08-19-2017 *Hepatic Function Panel *Hepatic Function Panel [facility] Work Phone: Start: 02-13-2018 End: 08-19-2017 Lipid panel [AGGREGATE] *Lipid Profile CC PCP [facility] Work Phone: Start: 01-19-2018 End: 01-19-2018 Appointment Appointment [facility] Work Phone: Start: 10-21-2017 End: 04-27-2017 *Hepatic Function Panel *Hepatic Function Panel [facility] Work Phone: Start: 10-21-2017 End: 04-27-2017 Lipid panel [AGGREGATE] *Lipid Profile CC PCP [facility] Work Phone: Start: 10-21-2017 End: 04-27-2017 *Hepatic Function Panel *Hepatic Function Panel [facility] Work Phone: Start: 10-21-2017 End: 04-27-2017 Lipid panel [AGGREGATE] *Lipid Profile CC PCP [facility] Work Phone: Start: 10-03-2017 End: 04-20-2017 *Hepatic Function Panel *Hepatic Function Panel [facility] Work Phone: Start: 10-03-2017 End: 04-20-2017 Lipid panel [AGGREGATE] *Lipid Profile CC PCP [facility] Work Phone: Start: 10-03-2017 End: 04-20-2017 *Hepatic Function Panel *Hepatic Function Panel [facility] Work Phone: Start: 10-03-2017 End: 04-20-2017 Lipid panel [AGGREGATE] *Lipid Profile CC PCP [facility] Work Phone: Start: 08-05-2017 End: 02-07-2017 *Hepatic Function Panel *Hepatic Function Panel [facility] Work Phone: Start: 08-05-2017 End: 02-07-2017 Lipid panel [AGGREGATE] *Lipid Profile CC PCP [facility] Work Phone: Start: 07-21-2017 End: 07-21-2017 Appointment Appointment [facility] Work Phone: Start: 07-21-2017 End: 07-21-2017 Appointment Appointment [facility] Work Phone: Start: 07-21-2017 End: 07-21-2017 DJN DJN [facility] Work Phone: Start: 07-21-2017 End: 07-21-2017 Follow Up Appt 6 months Follow Up Appt 6 months [facility] Work Phone: Start: 07-21-2017 End: 07-21-2017 DJN DJN [facility] Work Phone: Start: 07-21-2017 End: 07-21-2017 Follow Up Appt 6 months Follow Up Appt 6 months [facility] Work Phone: Start: 05-31-2017 End: 05-31-2017 Appointment Appointment [facility] Work Phone: Start: 05-31-2017 End: 05-31-2017 Appointment Appointment [facility] Work Phone: Start: 05-31-2017 End: 05-31-2017 JANETTE SAVAGE [facility] Work Phone: Start: 05-31-2017 End: 05-31-2017 Follow Up Appt 1 month Follow Up Appt 1 month [facility] Work Phone: Start: 05-31-2017 End: 05-31-2017 JANETTE SAVAGE [facility] Work Phone: Start: 05-31-2017 End: 05-31-2017 Follow Up Appt 1 month Follow Up Appt 1 month [facility] Work Phone: Start: 05-09-2017 End: 05-09-2017 External Counterpulsation Therapy External [facility] [address] [place], [address] [facility] Work Phone: Start: 05-09-2017 End: 05-09-2017 External Counterpulsation Therapy External Counterpulsation Therapy [address] [place], [address] [facility] Work Phone: Start: 05-02-2017 End: 05-02-2017 *BMP *BMP [facility] Work Phone: Start: 05-02-2017 End: 05-03-2017 CBC W Auto Differential panel - Blood *CBC without Diff [facility] Work Phone: Start: 05-02-2017 End: 05-03-2017 Erythrocyte sedimentation rate ESR [facility] Work Phone: Start: 05-02-2017 End: 05-02-2017 *BMP *BMP [facility] Work Phone: Start: 05-02-2017 End: 05-03-2017 CBC W Auto Differential panel - Blood *CBC without Diff [email or web address] Work Phone: Start: 05-02-2017 End: 05-03-2017 Erythrocyte sedimentation rate ESR [email or web address] Work Phone: Start: 04-11-2017 End: 04-20-2017 *Hepatic Function Panel *Hepatic Function Panel [facility] Work Phone: Start: 04-11-2017 End: 04-20-2017 Lipid panel [AGGREGATE] *Lipid Profile CC PCP [email or web address] Work Phone: Start: 04-11-2017 End: 04-20-2017 *Hepatic Function Panel *Hepatic Function Panel [facility] Work Phone: Start: 04-11-2017 End: 04-20-2017 Lipid panel [AGGREGATE] *Lipid Profile CC PCP [email or web address] Work Phone: Start: 03-16-2017 End: 03-17-2017 Xtrnl mobile cv telemetry w/i&report 30 days 30 Day Holter Monitor [employer] Work Phone: Start: 03-16-2017 End: 03-17-2017 Remote 30 day ecg rev/report 30 Day Holter Monitor [employer] Phone: Start: 03-14-2017 End: 03-14-2017 Stress Echocardiogram (treadmill) Stress Echocardiogram (treadmill) [employer] Phone: Start: 03-14-2017 End: 04-20-2017 Stress Echocardiogram (treadmill) Stress Echocardiogram (treadmill) [email or web address] Work Phone: Start: 03-01-2017 End: 03-21-2017 Cardiac Rehab Card[facility] Rehab [address] [place], [address] [email or web address] Work Phone: Start: 03-01-2017 End: 04-20-2017 DJN DJN [employer] Work Phone: Start: 03-01-2017 End: 04-20-2017 Follow Up Appt 3 months Follow Up Appt 3 months [facility] Work Phone: Start: 03-01-2017 End: 03-01-2017 Appointment Appointment [facility] Work Phone: Start: 03-01-2017 End: 03-21-2017 Cardiac Rehab Card[facility] Re[facility] [address] [place], [address] [facility] Work Phone: Start: 03-01-2017 End: 04-20-2017 JANETTE SAVAGE [facility] Work Phone: Start: 03-01-2017 End: 04-20-2017 Follow Up Appt 3 months Follow Up Appt 3 months [facility] Work Phone: Start: 02-10-2017 End: 02-10-2017 Cardiac Rehab Card[facility] [address] [place], [address] [facility] Work Phone: Start: 01-24-2017 End: 02-04-2017 *Hepatic Function Panel *Hepatic Function Panel [facility] Work Phone: Start: 01-24-2017 End: 02-04-2017 Lipid panel [AGGREGATE] *Lipid Profile CC PCP [facility] Work Phone: Start: 01-24-2017 End: 02-04-2017 *Hepatic Function Panel *Hepatic Function Panel [facility] Work Phone: Start: 01-24-2017 End: 02-04-2017 Lipid panel [AGGREGATE] *Lipid Profile CC PCP [facility] Work Phone: Start: 01-17-2017 End: 01-17-2017 *BMP *BMP [facility] Work Phone: Start: 01-17-2017 End: 01-17-2017 CBC W Auto Differential panel - Blood *CBC without Diff [facility] Work Phone: Start: 01-17-2017 End: 01-17-2017 JANETTE SAVAGE [facility] Work Phone: Start: 01-17-2017 End: 01-17-2017 Ecg routine ecg w/least 12 lds w/i&r EKG (In office) [email or web address] Work Phone: Start: 01-17-2017 End: 01-17-2017 Follow Up Appt 6 months Follow Up Appt 6 months [employer] Work Phone: Start: 01-17-2017 End: 02-04-2017 Heart Cath with FFR Heart Cath with FFR [email or web address] Work Phone: Start: 01-17-2017 End: 01-17-2017 INR Coag RelTime (PPP) *PT/INR [email or web address] Work Phone: Start: 01-17-2017 End: 01-17-2017 *BMP *BMP [employer] Work Phone: Start: 01-17-2017 End: 01-17-2017 CBC W Auto Differential panel - Blood *CBC without Diff [employer] Work Phone: Start: 01-17-2017 End: 01-17-2017 Coagulation factor induced.INR assay in platelet poor plasma *PT/INR [email or web address] Work Phone: Start: 01-17-2017 End: 01-17-2017 JANETTE SAVAGE [email or web address] Work Phone: Start: 01-17-2017 End: 01-17-2017 Electrocardiogram, complete EKG (In office) [employer] Work Phone: Start: 01-17-2017 End: 01-17-2017 Follow Up Appt 6 months Follow Up Appt 6 months [employer] Work Phone: Start: 01-17-2017 End: 01-17-2017 Heart Cath with FFR Heart Cath with FFR [email or web address] Work Phone: Start: 12-02-2016 End: 12-08-2016 *Hepatic Function Panel *Hepatic Function Panel [facility] Work Phone: Start: 12-02-2016 End: 12-02-2016 JANETTE SAVAGE [facility] Work Phone: Start: 12-02-2016 End: 12-02-2016 Follow Up Appt 1 month Follow Up Appt 1 month [facility] Work Phone: Start: 12-02-2016 End: 12-08-2016 Lipid panel [AGGREGATE] *Lipid Profile CC PCP [facility] Work Phone: Start: 12-02-2016 End: 12-02-2016 Stress Echocardiogram (treadmill) Stress Echocardiogram (treadmill) [facility] Work Phone: Start: 12-02-2016 End: 12-08-2016 *Hepatic Function Panel *Hepatic Function Panel [facility] Work Phone: Start: 12-02-2016 End: 12-02-2016 JANETTE DE LEONWillie [facility] Work Phone: Start: 12-02-2016 End: 12-02-2016 Follow Up Appt 1 month Follow Up Appt 1 month [facility] Work Phone: Start: 12-02-2016 End: 12-08-2016 Lipid panel [AGGREGATE] *Lipid Profile CC PCP [facility] Work Phone: Start: 12-02-2016 End: 12-02-2016 Stress Echocardiogram (treadmill) Stress Echocardiogram (treadmill) [facility] Work Phone: Patient Education [facility] Work Phone: Payers Date Payer Category Payer Self-pay [id number] 2014 Unknown [id number] Unknown [id number] [id number] Unknown [id number] 2.16.8 [id number] Unknown [id number] 2.16.8 [id number] Unknown [id number] 2.16.8 [id number] Unknown [id number] 2.16.8 [id number] Unknown [id number] 2.16.8 [id number] Unknown [id number] 2.16.8 [id number] Unknown [id number] 2.16.8 [id number] Social History Date Type Detail Facility Start: 11-25-2021 End: 08-12-2023 Tobacco smoking status VTIS Unknown if ever smoked [facility] Start: 11-10-2016 Heavy [facility] Start: 11-10-2016 Marijuana [facility] Start: 11-10-2016 Spouse/ Signif icant Other [facility] Start: 11-10-2016 Non-smoker [facility] Start: 1965 Sex Assigned At Male A [facility] Tobacco smoking status No Smoking Status Entered [facility] Clinical Note 04-21-2022 Note Date & Type Note Facility 04-21-2022 Note ORIGINAL EXAMINATION: CT OF THE RIGHT KNEE WITHOUT CONTRAST 04/21/2022 10:30 am TECHNIQUE: CT of the right knee was performed without the administration of intravenous contrast. Multiplanar reformatted images are provided for review. Automated exposure control, iterative reconstruction, and/or weight based adjustment of the mA/kV was utilized to reduce the radiation dose to as low as reasonably achievable. COMPARISON: None. HISTORY ORDERING SYSTEM PROVIDED HISTORY: Reason for Exam: M17.11 UNILATERAL PRIMARY OSTEOARTHRITIS, RIGHT KNEE FINDINGS: No acute fracture or dislocation is evident. Osseous mineralization is within normal limits. No visible aggressive osseous lesions. Moderate degenerative changes are present of the medial femorotibial compartment with joint space narrowing, marginal osteophyte formation, and subchondral sclerosis. There is also mild chondrocalcinosis present. Suspect meniscal ossicle near posterior root of medial meniscus. Mild degenerative changes are present of the lateral femorotibial compartment with joint space narrowing and marginal osteophyte formation. [id number] joint space narrowing with marginal osteophytes and tiny subchondral cysts are present of the patellofemoral compartment. Small volume knee joint effusion. Large intracapsular osteochondral body of the intercondylar notch measuring up to 2.2 cm AP dimension. Small volume Fields's cyst. Metallic surgical device noted at the anterior aspect of the proximal tibial metaphysis. Provided images of the right hip and right hemipelvis demonstrate mild hip degenerative change. No visible aggressive osseous lesions. Small bone island of the right femoral head. Visible intrapelvic contents exhibit no acute abnormalities. Provided images of the ankle exhibit no acute osseous abnormalities or aggressive osseous lesions. Vascular calcifications. IMPRESSION: 1. No acute osseous abnormalities or aggressive osseous lesions. 2. Tricompartmental degenerative change, greatest of the medial femorotibial compartment. Chondrocalcinosis of the medial femorotibial compartment can be seen with osteoarthrosis or CPPD arthropathy. 3. Small volume joint effusion with large intracapsular osteochondral body of the intercondylar notch. Interpreted by: Saman Davis DO Preliminary Report By: Saman Davis DO Electronically signed By Saman Davis DO Dictated Date: 04/21/2022 11:05:06 AM Prelim Date: 04/21/2022 11:11:27 AM Sign Date: 04/21/2022 11:11:27 AM Ordering Provider: CANDACE [facility] Clinical Note 04-21-2022 Note Date & Type Note Facility 04-21-2022 Note ORIGINAL EXAMINATION: CT OF THE RIGHT KNEE WITHOUT CONTRAST 04/21/2022 10:30 am TECHNIQUE: CT of the right knee was performed without the administration of intravenous contrast. Multiplanar reformatted images are provided for review. Automated exposure control, iterative reconstruction, and/or weight based adjustment of the mA/kV was utilized to reduce the radiation dose to as low as reasonably achievable. COMPARISON: None. HISTORY ORDERING SYSTEM PROVIDED HISTORY: Reason for Exam: M17.11 UNILATERAL PRIMARY OSTEOARTHRITIS, RIGHT KNEE FINDINGS: No acute fracture or dislocation is evident. Osseous mineralization is within normal limits. No visible aggressive osseous lesions. Moderate degenerative changes are present of the medial femorotibial compartment with joint space narrowing, marginal osteophyte formation, and subchondral sclerosis. There is also mild chondrocalcinosis present. Suspect meniscal ossicle near posterior root of medial meniscus. Mild degenerative changes are present of the lateral femorotibial compartment with joint space narrowing and marginal osteophyte formation. [id number] joint space narrowing with marginal osteophytes and tiny subchondral cysts are present of the patellofemoral compartment. Small volume knee joint effusion. Large intracapsular osteochondral body of the intercondylar notch measuring up to 2.2 cm AP dimension. Small volume Fields's cyst. Metallic surgical device noted at the anterior aspect of the proximal tibial metaphysis. Provided images of the right hip and right hemipelvis demonstrate mild hip degenerative change. No visible aggressive osseous lesions. Small bone island of the right femoral head. Visible intrapelvic contents exhibit no acute abnormalities. Provided images of the ankle exhibit no acute osseous abnormalities or aggressive osseous lesions. Vascular calcifications. IMPRESSION: 1. No acute osseous abnormalities or aggressive osseous lesions. 2. Tricompartmental degenerative change, greatest of the medial femorotibial compartment. Chondrocalcinosis of the medial femorotibial compartment can be seen with osteoarthrosis or CPPD arthropathy. 3. Small volume joint effusion with large intracapsular osteochondral body of the intercondylar notch. 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 chroni c Essential hypertension chron [facility]ch[facility] Work Phone: Hospital Discharge instructions Note Date & Type Note Facility Hospital Discharge instructions No data available for this section [facility] Summary Purpose Family History No Family History Records Found Relationship Condition Age at Onset Recorded Date/T melania mother Cerebrovascular accident (CVA) Unknown father Coronary artery disease Unknown Advance Directives No Advanced Directives Records Found Advance Directive Response Recorded Date/ Time Advance Directives No December 12 8:19am Living Will No December 12, 2020 8:19am Power of Front End Specialist No December 12 1 8:19am Advance Directive Response Recorded Date/ Time Advance Directives No December 12 7:19am Living Will No December 12, 2020 7:19am Power of Front End Specialist No December 12 7:19am Chief Complaint and Reason for Visit Chief Complaint 1 Y FU MURMUR Reason for Visit Cardiac murmur Atherosclerotic heart disease [place] coronary artery w/angina pectoris Essential hypertension Presence of stent in coronary artery Pure hypercholesterolemia Chief Complaint 1 Y FU MURMUR E ORDER Reason for Visit Cardiac murmur Atherosclerotic heart disease [place] coronary artery w/angina pectoris Essential hypertension Presence of stent in coronary artery Pure hypercholesterolemia Chief Complaint pre-op pre-op Chief Complaint CHEST PAIN CHEST PAIN Amb Documentation CP, stress test Emily bright JR Reason for Visit Atherosclerotic hear t disease [place] coronary artery w/angina pectoris Essential hypertension Pure hypercholesterolemia Chief Complaint INT LABS Additional Source Comments (unrecognized sect ion and content) No Status Records FoundNo Status Records FoundNo Status Records FoundNo Status Records FoundNo Status Records Found INFORMATION SOURCE (unrecogn ized section and content) DATE CREATED AUTHOR 04/05/2018 [facility] DATE CREATED AUTHOR AUTHOR'S ORGANIZ ATION 04/05/2018 [facility] DATE CREATED AUTHOR AUTHOR'S ORGANIZ ATION 10/25/2019 [facility] DATE CREATED AUTHOR AUTHOR'S ORGANIZ ATION 04/27/2022 [facility] ([place]) DATE CREATED AUTHOR AUTHOR'S ORGANIZ ATION 11/10/2024 [facility] Goals (unrecognized section and content) Goals may be documented in a n alternate sectionGoals may be documented in an alternate section No data available for this sectionGoals may be documented in an alternate sectionGoals may be documented in an alternate sectionGoals may be documented in an alternate section Care Team (unrecognized sect ion and content) Care Team Personnel Name: ROSMERY CHRISTIE DO Member Role: Primary Care Physician Address: Address: [facility] [place] [address]- Care Teams (unrecognized sec tion and content) Team Status: Active Member Role Status Dates Dr. Rosmery Christie DO Family Provider Active Dr. Rosmery Christie DO Primary Care Provider Active Team Status: Inactive Member Role Status Dates Dr. Rosmery Christie DO Primary Care Provider, Referrin g Provider Active Gideon Charlton BARK SKINNER, BARK SKINNER-C Attending Provider Active Team Status: Active Member Role Status Dates Dr. Rosmeyr Christie DO Primary Care Provider Active Gideon Charlton BARK SKINNER, BARK SKINNER-C Other Provider Active Dr. Philippe Jean MD Attending Provider Active Team Status: Active Member Role Status Dates Dr. Rosmery Christie DO Primary Care Provider Active Gideon Charlton BARK SKINNER, BARK SKINNER-C Attending Provider Active Team Status: Inactive Member Role Status Dates Dr. Rosmery Christie DO Primary Care Provider Active Gideon Charlton BARK SKINNER, BARK SKINNER-C Attending Provider Active Team Status: Inactive Member Role Status Dates Dr. Rosmery Christie DO Primary Care Provider Active Gideon Charlton BARK SKINNER, BARK SKINNER-C Attending Provider, Referring Pro vider Active FOR RECORDS PERTAINING TO PATIENTS WHO ARE OR HAVE BEEN ENROLLED IN A CHEMICAL DEPENDENCY/SUBSTANCEABUSE PROGRAM, SOME INFORMATION MAY BE OMITTED. This clinical summary was aggregated from multiple sources. Caution should be exercised in using it in the provision of clinical care. This summary normalizes information from multiple sources, and as a consequence, information in this document may materially change the coding, format and clinical context of patient data. In addition, data may be omitted in some cases. CLINICAL DECISIONS SHOULD BE BASED ON THE PRIMARY CLINICAL RECORDS. [employer] provides no warranty or guarantee of the accuracy or completeness of information in this document.
--- NOTE | 2025-09-23 11:16 | STRESSREP_ITS ---
Stress Test Report Date: 09/20/2025 Procedure: Exercise tolerance test/imaging study Indications: Coronary artery disease/chest pain Consent: Per the patient Procedure: The patient exercised on a Quinton protocol for 7 minutes and 45 seconds achieving a peak heart rate of 136 bpm (85% predicted maximal heart rate) with a peak blood pressure 210/80 mmHg and a peak MET capacity of 10.4 METs. The baseline ECG demonstrated sinus rhythm. The peak exercise ECG did not show any ischemic changes. However there was ST depressions in high lateral leads in recovery, suggestive of ischemia. Occasional PVCs noted during exercise. The functional capacity was considered very good. There was complaint of burning chest discomfort during exercise. The examination was discontinued secondary to target heart rate being achieved. The patient was injected with 14.6 mCi of technetium 99m Cardiolite and subsequently rest SPECT Cardiolite nuclear imaging was obtained in the horizontal long, vertical long, and short axis views. Post-exercise, the patient was injected with 44.5 mCi of technetium 99m Cardiolite and subsequently stress SPECT Cardiolite nuclear imaging was obtained in the horizontal long, vertical long, and short axis views. A gated Cardiolite study at peak stress was obtained. Rest and stress SPECT Cardiolite nuclear imaging status post realignment, normalization, and attenuation correction, demonstrates hypoperfusion of the basal lateral wall at rest that worsens postexercise. There is end systolic thickening and brightening. The gated Cardiolite study demonstrates myocardial thickening and inward wall motion. The reported LVEF is 55%. Impression: 1. Technically adequate (percent predicted maximal heart rate greater than 85%) exercise tolerance test 2. Ischemic ECG changes in high lateral leads in recovery. Reported chest discomfort with exercise 3. Occasional PVCs noted during exercise 4. Rest and stress SPECT Cardiolite nuclear imaging demonstrate resting ischemia of the basal lateral wall which worsens postexercise. Positive perfusion study for ischemia. 5. The gated Cardiolite study reports an LVEF of 55%. This note was generated with [employer] software. It may contain incorrect words, spelling, and punctuation that were not noted in checking the note before signing.
== END | disposition home or self-care (01) ==
LOC: CVS 07:12
PROVIDERS: PCP Family Medicine; Referring Provider Internal Medicine Cardiovascular Disease; Visit Provider Internal Medicine Cardiovascular Disease
DX: I25.10 Atherosclerotic heart disease of native coronary artery without angina pectoris (principal); I10 Essential (primary) hypertension; E78.5 Hyperlipidemia, unspecified; E66.9 Obesity, unspecified; Z91.199 Patient's noncompliance with other medical treatment and regimen due to unspecified reason; R06.09 Other forms of dyspnea
CPT/HCPCS: 78452; 93017; 93306; A9500; Q9957; A4216; C8929